=== PATIENT | female | born 1950 | race Two or more races ===

== ENCOUNTER 2023-11-10 10:11 | Outpatient (REF) | payer MEDICARE, MEDICAID, SELFPAY ==
--- NOTE | ~2023-11-10 | XR_ITS ---
EXAMINATION: XR KNEE, LEFT CLINICAL INFORMATION: worsening knee pain b/l COMPARISON: None available. TECHNIQUE: Four views of the left knee. FINDINGS: Normal bone mineralization. No fracture, dislocation, or suspicious bone lesion. Severe, end-stage tricompartmental arthritis of the left knee joint, most severe with [id number] appearance in the lateral compartment, with mild bony remodeling, subchondral sclerosis, cystic changes and prominent marginal osteophytes. Severe joint space loss medial compartment. Lesser severity noted in the patellofemoral compartment. There is mild valgus angulation of the joint. There is mild medial subluxation of the condyles upon the tibial plateau. There is spurring of the tibial spines. Soft tissues demonstrate a small suprapatellar joint effusion. There are early vascular calcifications. Soft tissues otherwise normal. XR/XR knee LT 4V IMPRESSION: 1. Left knee severe tricompartmental osteoarthritis, end-stage lateral compartment. [id number] appearance. 2. Suspect small joint effusion. Electronically signed by: Owen Del Toro MD 01/17/2024 02:35 PM [facility]
--- NOTE | ~2023-11-10 | XR_ITS ---
EXAMINATION: XR KNEE, RIGHT CLINICAL INFORMATION: worsening knee pain b/l COMPARISON: None available. TECHNIQUE: Four views of the right knee. FINDINGS: Normal bone mineralization. No fracture, dislocation, or suspicious bone lesion. Severe, end-stage tricompartmental arthritis of the right knee joint, most severe with [id number] appearance in the medial compartment, with mild bony remodeling, subchondral sclerosis, cystic changes and prominent marginal osteophytes. Severe bilateral lesser severity noted in the patellofemoral and lateral compartment. There is mild varus angulation of the joint. There is mild medial subluxation of the condyles upon the tibial plateau. There is spurring of the tibial spines. Soft tissues demonstrate a small to moderate sized suprapatellar joint effusion. Early vascular calcifications. Soft tissues otherwise normal. XR/XR knee RT 4V IMPRESSION: 1. Right knee severe tricompartmental osteoarthritis, end-stage medial compartment. Qksu-pd-[id number] appearance. 2. Suspect small to moderate joint effusion. Electronically signed by: Owen Del Toro MD 01/17/2024 02:32 PM [facility]
--- NOTE | ~2023-11-10 | XR_ITS ---
EXAMINATION: XR CERVICAL SPINE CLINICAL INFORMATION: chronic neck pain COMPARISON: None available. TECHNIQUE: 4 views of the cervical spine were obtained. FINDINGS: There is no scoliosis. There is a straightened lordosis. This is nonspecific. No fractures, traumatic subluxations, or suspicious focal bone lesions. There are no subluxations of significance. There is a minimal degenerative anterolisthesis of L2 on L3 by 2 mm. Alignment is otherwise anatomic. Severe disc space degeneration present C5-T1 with disc osteophytic spurring and loss of disc space. Associated facet degeneration is present. Moderate loss of disc space noted in C3-4 and C4-5. Relative preservation of C2-3. Atlantoaxial joint is intact and normally aligned. Craniocervical junction is aligned. There is no prior paravertebral soft tissue abnormality. Imaged lung apices are clear. XR/XR cervical spine 3V IMPRESSION: 1. Moderate to advanced cervical spondylosis, most significant at C5-6 and C6-7. 2. No acute cervical findings. Electronically signed by: Owen Del Toro MD 01/17/2024 02:39 PM [facility]
[2023-11-10 12:00] LABS: Hematocrit 39.2 % (37.0-47.0); Hemoglobin 12.7 g/dl (12.0-16.0); Mean Corpuscular HGB Conc 32.4 g/dl (31.0-35.0); Mean Corpuscular Hemoglobin 29.2 pg (27.0-33.0); Mean Corpuscular Volume 90.1 fL (80.0-98.0); Mean Platelet Volume 10.8 fL (9.4-12.3); Platelet Count 249 X10*3/uL (160-400); Red Blood Count 4.35 X10*6/uL (4.20-5.50); Red Cell Distribution Width 12.7 % (11.0-16.0); White Blood Count 7.7 X10*3/uL (4.8-10.8)
[2023-11-10 12:16] LABS: Estimated Average Glucose 200 mg/dL; Hemoglobin A1c % 8.6 % (<6.0)
[2023-11-10 12:36] LABS: Creatinine Urine 280.99 mg/dL; Microalbum/Creatinine Ratio Ur 9.2 ug/mg cr (<30)
[2023-11-10 12:38] LABS: Alanine Aminotransferase 16 U/L (0-31); Alkaline Phosphatase 66 U/L (39-117); Anion Gap 13 (12-20); Aspartate Amino Transferase 17 U/L (5-31); Bilirubin Direct < 0.2 mg/dL (0.0-0.5); Bilirubin Total 0.2 mg/dL (0.0-1.0); Blood Urea Nitrogen 19 mg/dL (9-16); Calcium 9.8 mg/dL (8.4-10.2); Carbon Dioxide 28 mmol/L (22-29); Chloride 104 mmol/L (96-108); Cholesterol 218 mg/dL (<200); Estimated Glomerular Filt Rate 49; Glucose Random 151 mg/dL (60-115); HDL Cholesterol 42 mg/dL (>40); Hepatitis A Antibody IgG REACTIVE (Nonreactive); LDL Cholesterol Calculated 125 mg/dL (<100); Potassium 5.2 mmol/L (3.3-5.1); Sodium 140 mmol/L (135-145); Total Protein 7.6 g/dL (6.5-8.0); Triglycerides 256 mg/dL (<150); ~Hepatitis A Antibody IgG 11.49 S/CO (0.00-0.99)
[2023-11-10 12:39] LABS: HBS Num1 0.33 mIU/mL (0-7.99); HBc Num1 0.15 S/CO (0.00-0.79); HBsAGNum1 0.31 S/CO (0.00-0.99); HIV AB/AG Nonreactive (Nonreactive); HIV Num 1 0.07 S/CO (0.00-0.99); Hepatitis B Core Antibody Nonreactive (Nonreactive); Hepatitis B Surface Antigen Negative (Negative); ~HepC Num1 0.11 S/CO (0.00-0.79); ~Hepatitis B Surface Antibody NONREACTIVE (Nonreactive); ~Hepatitis C Antibody Nonreactive (Nonreactive)
[2023-11-10 12:42] LABS: Thyroid Stimulating Hormone 2.42 uIU/mL (0.32-4.0); Vitamin D 25-OH Total 23.1 ng/mL (>30)
[2023-11-11 12:49] LABS: RPR Rapid Plasma Reagin NON-REACTIVE (NON-REACTIVE)
== END 2023-11-10 10:12 | disposition home or self-care (01) ==
LOC: HO.HHCL 10:11
PROVIDERS: PCP Family Medicine; Visit Provider Family Medicine
DX: Z00.00 Encounter for general adult medical examination without abnormal findings (principal); M54.2 Cervicalgia; M25.561 Pain in right knee; M25.562 Pain in left knee; E11.319 Type 2 diabetes mellitus with unspecified diabetic retinopathy without macular edema; I10 Essential (primary) hypertension; E78.49 Other hyperlipidemia; Z68.35 Body mass index [BMI] 35.0-35.9, adult; N18.2 Chronic kidney disease, stage 2 (mild); Z11.3 Encounter for screening for infections with a predominantly sexual mode of transmission; Z11.59 Encounter for screening for other viral diseases; G89.29 Other chronic pain; Z72.89 Other problems related to lifestyle
CPT/HCPCS: 36415; 72040; 73564; 80048; 80061; 80076; 82043; 82306; 82570; 83036; 84439; 84443; 85027; 86592; 86704; 86706; 86708; 86803; 87340; 87389

== ENCOUNTER → 2023-11-10 10:52 | Outpatient (BNV) | payer MEDICARE, MEDICAID, SELFPAY | PROVIDERS: PCP Family Medicine; Visit Provider Radiology Diagnostic Radiology | DX: M17.0 Bilateral primary osteoarthritis of knee (principal); M47.892 Other spondylosis, cervical region | CPT/HCPCS: 72040; 73564 ==

== ENCOUNTER 2023-11-17 11:02 | Outpatient (REF) | payer MEDICARE, MEDICAID, SELFPAY ==
[2023-11-17 13:27] LABS: Anion Gap 13 (12-20); Blood Urea Nitrogen 16 mg/dL (9-16); Calcium 9.7 mg/dL (8.4-10.2); Carbon Dioxide 30 mmol/L (22-29); Chloride 100 mmol/L (96-108); Estimated Glomerular Filt Rate 59; Glucose Random 160 mg/dL (60-115); Potassium 4.4 mmol/L (3.3-5.1); Sodium 139 mmol/L (135-145)
[2023-11-17 13:48] LABS: Vitamin B12 748 pg/mL (200-900)
[2023-11-17 15:21] LABS: CT PCR NOT DETECTED (Not Detect.); NG PCR NOT DETECTED (Not Detect.)
== END 2023-11-17 11:03 | disposition home or self-care (01) ==
LOC: HO.HHCL 11:02
PROVIDERS: Visit Provider Family Medicine
DX: Z00.00 Encounter for general adult medical examination without abnormal findings (principal); E11.319 Type 2 diabetes mellitus with unspecified diabetic retinopathy without macular edema; I12.9 Hypertensive chronic kidney disease with stage 1 through stage 4 chronic kidney disease, or unspecified chronic kidney disease; N18.2 Chronic kidney disease, stage 2 (mild); E78.49 Other hyperlipidemia; Z68.35 Body mass index [BMI] 35.0-35.9, adult; Z11.3 Encounter for screening for infections with a predominantly sexual mode of transmission
CPT/HCPCS: 36415; 80048; 82607; 87491; 87591

== ENCOUNTER 2024-05-21 10:22 | Outpatient (REF) | payer MEDICARE, MEDICAID, SELFPAY ==
--- OUTSIDE RECORDS SUMMARY | 2024-05-21 12:09 | XMS_ITS | Encounter Summary ---
Author Organization [employer] Address [address] [facility] [address] [place] [address] Care Team Providers Care Rake Operator Name Role Phone AlonJenifer Primary Care Provider Sherrill Franklin PharmD Unavailable [phone] Encounter Details Date Type Department Care Team (Latest Contact Info) Description 05/21/2024 Travel Social History Tobacco Use Types Packs/Day Years Used Date Smoking Tobacco: Never Smokeless Tobacco: Never Alcohol Use Standard Drinks/Week Comments Never 0 (1 standard drink = 0.6 oz pur e alcohol) Depression Answer Date Recorded Patient Health Questionnaire-9 Score 3 11/10/2023 Patient Health Questionnaire-9 Score 3 11/10/2023 Last PHQ-9: Questionnaire Data Not on file 0 11/10/2023 Housing Stability Answer Date Recorded What is your housing situation today? I have soledad geronimo 11/02/[address] you li ve. Do you have problems with any of the following? None of the above 11/02/2023 Food Insecurity Answer Date Recorded Within the past 12 months, y ou worried that your food would run out before you got money to buy more: Never True 11/02/2023 Within the past 12 months,th e food you bought just didn't last and you didn't have enough money to get more: Never True Transportation Answer Date Recorded In the past 12 months, has l ack of transportation kept you from medical appts, meetings, work or from getting things needed for daily living? No 11/02/2023 Utilities Answer Date Recorded In the past 12 months, has t he electric, gas, oil or water company threatened to shut off services in your home? No 11/02/2023 Depression Answer Date Recorded Patient Health Questionnaire-2 Score 1 11/10/2023 Internet Access Answer Date Recorded Internet Access Q1 Yes 11/02/2023 Internet Access Q2 Not on file 11/02/2023 Comments Unknown Sex and Gender Information Value Date Recorded Sex Assigned at Female 09/14/2023 9:46 AM EDT Legal Sex Female 9:44 AM EDT Gender Identity Female 09/14/2023 9:46 AM EDT Sexual Orientation Straight 09/14/2023 9: 47 AM EDT documented as of this encounter Plan of Treatment Upcoming Encounters Date Type Department Care Team (Late st Contact Info) Description 06/08/2024 11:15 AM EDT Office Visit [facility] MEDICINE [address] [place] [phone] Jenifer Chi DO [address] [place] [phone] 07/03/2024 9:00 AM EDT Medication Management [facility] MEDICINE [address] [place] [phone] Sherrill Franklin, PharmD [address] [place] [phone] documented as of this encounter Visit Diagnoses Not on filedocumented in this encounter Additional Health Concerns Assessment Noted Time PHQ-9 Depression Total Score: 3 11/10/19 9:00 AM EDT documented as of this encounter Care Teams Rake Operator Relationship Specialty Start Date End Date Jenifer Chi DO [address] [place] [phone] PCP - General Family Medicine 11/10/23 Sherrill Franklin, PharmD [address] [place] [phone] Pharmacist Internal Medicine 11/17/23 documented as of this encounter
--- OUTSIDE RECORDS SUMMARY | 2024-05-21 12:10 | XMS_ITS | Clinical Summary ---
Author Organization [employer] Address [address] [facility] 7t [place] [address] Care Team Providers Care Tourist Cabin Keeper Name Role Phone AlonJenifer Primary Care Provider Sherrill Franklin PharmD Unavailable [phone] Allergies No known active allergies Medications Alcohol Swabs 70 % pads Use to test blood sugar 2 times daily 100 each 11/10/19 Active Blood Glucose Monitoring Suppl ([employer] Lite) w/Device kit Use to test blood sugar 2 times daily 1 kit 11/10/19 Active Blood Pressure kit 1 each 1 (one) time per week. 1 kit 11/10/19 24 Active acetaminophen (Tylenol 8 Hour) 650 MG ER tablet Take 1 tablet (650 mg) by mouth every 8 (eight) hours if needed for mild pain. Do not crush, chew, or split. 60 tablet 2 11/10/19 025 Active aspirin (Aspirin Adult Low Dose) 81 MG EC tablet Take 1 tablet (81 mg) by mouth Once per day. 30 tablet 11/10/19 24 025 Active cholestyramine (Questran) 4 g packet Take 1 packet (4 g) by mouth if needed in the morning, at noon, and at bedtime (diarrhea). 90 packet 11/10/19 025 Active losartan (Cozaar) 100 MG tablet Take 1 tablet (100 mg) by mouth Once per day. 30 tablet 11/10/19 24 025 Active meclizine (Antivert) 25 MG tablet Take 1 tablet (25 mg) by mouth if needed in the morning, at noon, and at bedtime for dizziness. 30 tablet 2 11/10/19 24 Active metoprolol succinate XL (Toprol XL) 50 MG 24 hr tablet Take 1 tablet (50 mg) by mouth Once per day. Do not crush or chew. 30 tablet 11 11/10/19 24 Active polycarbophil (FiberCon) 625 MG tablet Take 1 tablet (625 mg) by mouth 2 times daily. 60 tablet 11 11/10/19 24 Active GAS RELIEF 125 MG capsule TAKE 1 CAPSULE BY MOUTH 4 TIMES A DAY IN THE MORNING, AT NOON, IN THE EVENING, AND AT BEDTIME NEEDED FOR GAS 11/10/19 Active atorvastatin (Lipitor) 80 MG tablet Take 1 tablet (80 mg) by mouth Once per day. 30 tablet 11 11/17/19 24 Active amLODIPine (Norvasc) 10 MG tablet Take 1 tablet (10 mg) by mouth Once per day. 30 tablet 11 11/17/19 24 Active TRUEplus Lancets 33G misc TEST BLOOD SUGAR EVERY DAY 100 each 01/04/20 Active glucose blood (FREESTYLE LITE) test strip Use to test blood sugar once daily 50 each 01/04/20 24 Active Tirzepatide (Mounjaro) 5 MG/0.5ML solution auto-injectorIn dications:Type 2 diabetes mellitus with retinopathy of both eyes, without long-term current use of insulin, macular edema presence unspecified, unspecified retinopathy severity (CMS/HCC) Inject 5 mg under the skin 1 (one) time per week. 2 mL 02/14/20 Active DULoxetine (Cymbalta) [address] capsule TAKE 1 CAPSULE BY MOUTH EVERY MORNING (DO NOT BREAK, CRUSH, DISSOLVE OR CHEW) 30 capsule 3 03/08/19 25 Active gabapentin (Neurontin) 400 MG capsule TAKE 1 CAPSULE BY MOUTH EVERY EVENING 30 capsule 03/08/19 25 Active Florastor 250 MG capsule Take 1 capsule by mouth Once per day. 02/14/20 Active polyvinyl alcohol (Liquifilm Tears) 1.4 % ophthalmic solution INSTILL 1 DROP IN EACH EYE THREE TIMES DAILY IN THE MORNING, AT NOON, AND AT BEDTIME NEEDED DRY EYES 03/13/19 25 Active empagliflozin (Jardiance) 25 MGIndications:T ype 2 diabetes mellitus with retinopathy of both eyes, without long-term current use of insulin, macular edema presence unspecified, unspecified retinopathy severity (CMS/HCC) Take 1 tablet (25 mg) by mouth Once per day. 90 tablet 3 05/22/19 25 026 Active metFORMIN XR (Glucophage-XR) 750 MG 24 hr tabletIndicatio ns:Type 2 diabetes mellitus with retinopathy of both eyes, without long-term current use of insulin, macular edema presence unspecified, unspecified retinopathy severity (CMS/HCC) Take 2 tablets (1,500 mg) by mouth with breakfast. Do not crush, chew, or split. 180 tablet 1 05/22/19 25 Active empagliflozin-m etFORMIN ER (Synjardy XR) 25-1000 MG 24 hr tablet Take 1 tablet by mouth with breakfast. 30 tablet 11 02/14/20 24 025 Discontinued(A lternate therapy) docusate sodium (Colace) 100 MG capsuleIndicati ons:Constipatio n, unspecified constipation type Take 1 capsule (100 mg) by mouth Once per day. 90 capsule 02/16/19 25 025 polyethylene glycol, PEG, 3350 (MiraLax) 17 GM/SCOOP powderIndicatio ns:Constipation , unspecified constipation type Take 17 g by mouth Once per day. 527 g 2 02/16/19 25 025 dextran 70-hypromellose (artificial tears) 0.1-0.3 % ophthalmic solutionIndicat ions:Dry eyes, bilateral Administer 1 drop into both eyes if needed in the morning, at noon, and at bedtime for dry eyes. 15 mL 6 03/13/19 25 025 Discontinued(M ed list cleanup (will not trigger notification to Pharmacy)) Active Problems Problem Noted Date Diagnosed Date Type 2 diabetes mellitus 11/10/2023 Essential hypertension 11/10/2023 Hyperlipidemia 11/10/2023 BMI 35.0-35.9,adult 11/10/2023 Irritable bowel syndrome 11/10/2023 Chronic neck pain 11/10/2023 Chronic pain of both knees 11/10/2023 Chronic kidney disease (CKD) 11/10/2023 Atherosclerosis 11/10/2023 Osteoarthritis of both knees 11/10/2023 Hypertensive heart disease 11/10/2023 Cervical stenosis of spine 11/10/2023 Carotid artery disease 11/10/2023 Diabetes, polyneuropathy 11/10/2023 Diabetic retinopathy 11/10/2023 Uterine polyp 11/10/2023 Diverticulosis 11/10/2023 Encounters Date Type Department Care Team Description 05/21/2024 Travel 05/21/2024 Refill [facility] MEDICINE [address] [place] [address] Beba Palomares MD Constipation, unspecified constipation type 04/25/2024 Outside Procedure [facility] OPTOMETRY [address] [place] [address] Kay Montoya, OD Presbyopia (Primary Dx) 04/20/2024 9:00 AM EST Office Visit [facility] OPTOMETRY [address] [place] [address] Kay Montoya, OD Myopia of both eyes (Primary Dx) 04/20/2024 Travel 04/03/2024 Telephone [facility] MEDICINE [address] [place] [address] Sherrill Franklin PharmD 03/20/2024 Telephone [facility] MEDICINE [address] [place] [address] Jenifer Chi DO Telephone Call 03/13/2024 9:00 AM EST Office Visit [facility] OPTOMETRY [address] [place] [address] Lakesha Weston, OD Proliferative diabetic retinopathy of both eyes without macular edema associated with type 2 diabetes mellitus (CMS/HCC) (Primary Dx); Presbyopia; Dry eyes, bilateral 03/13/2024 Travel 03/08/2024 Refill [facility] MEDICINE [address] [place] [address] Jenifer Chi DO from Last 3 Months Immunizations Name Administration Dates Next Due Hep B, adult 05/21/2024,12/15/2023,11/17/2023 Influenza, High Dose Seasona l, Preservative Free 11/10/2023 Pfizer Covid-19 Vaccine 12+ 11/10/2023 Pneumococcal Conjugate PCV 20 11/10/2023 RSV Bivalent 12/15/2023 Zoster, Recombinant 05/21/2024 Family History Medical History Relation Name Comments Leukemia Granddaughter Diabetes Maternal Grandmother Diabetes Mother Hodgkin's lymphoma Son Relation Name Status Comments Father Granddaughter Other Maternal Grandmother Mother Son Social History Tobacco Use Types Packs/Day Years Used Date Smoking Tobacco: Never Smokeless Tobacco: Never Tobacco Cessation:Counseling Given: Not Answered Alcohol Use Standard Drinks/Week Comments Never 0 [...] Orientation Straight 09/14/2023 9: 47 AM EDT Last Filed Vital Signs Vital Sign Reading Time Taken Comments Blood Pressure 110/72 05/21/2024 10:05 AM EDT Pulse 67 11/10/2023 8:58 AM EDT Temperature 36.1 ??C (97 ??F) 11/10/2023 8:58 AM EDT Respiratory Rate 16 11/10/2023 8:58 AM EDT Oxygen Saturation 98% 11/10/2023 8:58 AM EDT Inhaled Oxygen Concentration - - Weight 92.5 kg (204 lb) 11/10/2023 8:58 AM EDT Height 162.6 cm (5' 4 ) 11/10/2023 8:58 AM EDT Body Mass Index 35.02 11/10/2023 8:58 AM EDT Plan of Treatment Upcoming Encounters Date Type Department Care Team (Late st Contact Info) Description 06/08/2024 11:15 AM EDT Office Visit [facility] MEDICINE [address] [place] [phone] Jenifer Chi DO [address] [place] [address] 07/03/2024 9:00 AM EDT Medication Management [facility] MEDICINE [address] [place] [phone] Sherrill Franklin, PharmD [address] [place] [address] Health Maintenance Due Date Last Done Comments CT Colonography 1951 Colonoscopy 1951 Colorectal Cancer Screening 1951 FIT DNA/Cologuard 1951 FIT 1951 FOBT 1951 Sigmoidoscopy 1951 Diabetes: Foot Exam 05/30/1961 Alcohol/Substance Use Screening 1963 DTaP/Tdap/Td Vaccines (1 - Tdap) 05/30/1970 Mammogram 1991 Diabetes: Hemoglobin A1C 05/14/2024 024, 11/10/2023, 11/10/2023 Zoster Vaccines (2 of 2) 07/16/2024 05/21/2024 SDOH Screening 11/01/2024 11/02/2023 Depression Screening 11/09/2024 11/10/2023, 11/10/19 Diabetes: Urine Protein Screening 11/09/2024 11/10/2023 Lipid Panel 11/09/2024 11/10/2023 Tobacco Screening 12/11/2024 12/12/2023 Eye Exam 03/13/2025 03/13/2024, 02/15, 03/13/2024, Additional history exists COVID-19 Vaccine Completed 11/10/2023 Hepatitis C Screening Completed 11/10/2023 Influenza Vaccine Completed 11/10/2023 Pneumococcal Vaccine: 50+ Years Completed 11/10/2023 RSV Patients and Patients Aged 60 years or older Completed 12/15/2023 Hepatitis B Vaccines Completed 05/21/2024, 12/15/2023, 11/17/2023 HIB Vaccines Aged Out No longer eligi ble based on patient's age to complete this topic HPV Vaccines Aged Out No longer eligi ble based on patient's age to complete this topic Hepatitis A Vaccines Aged Out No long er eligible based on patient's age to complete this topic IPV Vaccines Aged Out No longer eligi ble based on patient's age to complete this topic Meningococcal Vaccine Aged Out No madan albertina eligible based on patient's age to complete this topic RSV under 20 months Aged Out No longe r eligible based on patient's age to complete this topic Rotavirus Vaccines Aged Out No longer eligible based on patient's age to complete this topic Procedures Procedure Name Priority Date/Time Associated Diagnosis Comments AMB REFERRAL TO ORTHOPAEDIC SURGERY Urgent 03/17/2024 Chronic pain of both knees OCT, RETINA - OU - BOTH EYES Routine 03/13/2024 9:00 AM EST Proliferative diabetic retinopathy of both eyes without macular edema associated with type 2 diabetes mellitus (CMS/HCC) POCT GLYCATED HEMOGLOBIN, TOTAL Routine 02/14/2024 11:05 AM EST Type 2 diabetes mellitus with retinopathy of both eyes, without long-term current use of insulin, macular edema presence unspecified, unspecified retinopathy severity (CMS/HCC) ALBUMIN, RANDOM URINE W/CREATININE Routine 11/10/2023 10:25 AM EDT Type 2 diabetes mellitus with retinopathy of both eyes, without long-term current use of insulin, macular edema presence unspecified, unspecified retinopathy severity (CMS/HCC) Essential hypertension Other hyperlipidemia BMI 35.0-35.9,adult Healthcare maintenance HEPATITIS C AB W/REFL TO HCV RNA, QN, PCR Routine 11/10/2023 10:21 AM EDT Type 2 diabetes mellitus with retinopathy of both eyes, without long-term current use of insulin, macular edema presence unspecified, unspecified retinopathy severity (CMS/HCC) Essential hypertension Other hyperlipidemia BMI 35.0-35.9,adult Healthcare maintenance LIPID PANEL, STANDARD Routine 11/10/2023 10:21 AM EDT Type 2 diabetes mellitus with retinopathy of both eyes, without long-term current use of insulin, macular edema presence unspecified, unspecified retinopathy severity (CMS/HCC) Essential hypertension Other hyperlipidemia BMI 35.0-35.9,adult Healthcare maintenance from Last 3 Months or Most Recently Relevant to Health Maintenance Results * Referral to Orthopaedic Surgery (03/17/2024) Jenifer Chi DO OUTPATIENT REFERRAL ORDERABL ES Final Result * OCT, Retina - OU - Both Eyes (03/13/2024 9:00 AM EST) Narrative Lakesha Weston, OD - 03/19/2024 9:59 AM EST OCT [facility] [employer] Optical Coherence Tomography Interpretation Report Reliability: OD: 36, adequate quality image OS: 40, adequate quality image Measurements: Central subfoveal thickness OD: ??232 microns OS: ??192 microns Test findings: OD: thick sup/nasal/inf perifovea, (+) epiretinal membrane (ERM), all layers intact, no macular edema present OS: borderline thin fovea, borderline thin superior parafovea, thin inferior parafovea, tr epiretinal membrane (ERM), some subfoveal PIL disruption, no macular edema present Impression and Plan: PDR w/o DME both eyes (OU). Stable to last. Monitor. us Lakesha Weston OD OPHTH TOMOGRAPHY Final Result * (ABNORMAL) POCT HGB A1C (02/14/2024 11:05 AM EST) Hemoglobin A1C 9.2(A) 4.0 - 6.0 % QC Media Lot # [id number] Blood 02/14/2024 11:0 5 AM EST Jenifer Chi DO POINT OF CARE TEST ENTER/WOOD T ORDERABLES Final Result * Albumin, Random Urine W/Creatinine (11/10/2023 10:25 AM EDT) Creatinine, Urine 280.99 mg/dL [facility] Microalbumin Urine 26.0 mg/L [facility] Microalbum Creatinine Ratio Ur 9.2 <30 ug/mg cr [facility] Comment:Albumin/Creatinine R atio Reference Ranges: Normal: < 30 ug/mg creatinine Microalbuminuria: 30 - 300 ug/mg creatinineClinical Albuminuria: > 300 ug/mg creatinine Urine (Urine, Random) 11/10/2023 10:25 AM EDT 11/10/2023 11:42 AM EDT Jenifer Chi DO LAB URINE ORDERABLES Final R esult Performing Organization Address [facility] Co de Phone Number [facility] [address] [place] [phone] * Hepatitis C Antibody with Reflex to HCV, RNA, Quantitative, Real-Time PCR (11/10/2023 10:21 AM EDT) Pathologist [facility] [place] Hepatitis C Antibody Nonreactive Nonreactive [facility] Comment:Antibodies to HCV no t detected; does not exclude early acuteHCV infection. Blood Venous blood specimen / Unknown 11/10/2023 10:21 AM EDT 11/10/2023 11:51 AM EDT Jenifer Chi Plan A Drink LAB BLOOD ORDERABLES Final R esult Performing Organization Address [facility]/ZIP Co de Phone Number [facility] [address] [place] [phone] * (ABNORMAL) Lipid Panel, Standard (11/10/2023 10:21 AM EDT) Triglycerides 256(H) <150 mg/dL [facility] Comment:Desirable Triglyceri de: less than 150 mg/dLBorderline High Triglyceride 150-199 mg/dLHigh Triglyceride: 200-499 mg/dLVery High Triglyceride: greater than or equal to 5OO mg/dL Cholesterol 218(H) <200 mg/dL [facility] Comment:Desirable Cholestero l: less than 200 mg/dLBorderline High Cholesterol: 200-239 mg/dLHigh Cholesterol: greater than 239 mg/dL LDL Cholesterol Calculated 125(H) <100 mg/dL [facility] Comment:Desirable LDL: less than 100 mg/dLNear Optimal/Above Optimal LDL: 110- 129 mg/dLBorderline High LDL: 130-159 mg/dLHigh LDL: 160-189 mg/dLVery High LDL: greater than or equal to 190 mg/dL HDL Cholesterol 42 >40 mg/dL [facility] Comment:Desirable HDL: great er than 40 mg/dL Note: This HDL assay may give artificially low results in patients with liver disease. Blood Venous blood specimen / Unknown 11/10/2023 10:21 AM EDT 11/10/2023 11:51 AM EDT us Jenifer Chi DO LAB BLOOD ORDERABLES Final R esult [facility] [address] [place] [phone] from Last 3 Months or Most Recently Relevant to Health Maintenance Insurance MEDICARE [facility] STANDARD Care Teams Tourist Cabin Keeper Relationship Specialty Start Date End Date Jenifer Chi DO [address] [place] [address] PCP - General Family Medicine 11/10/23 Sherrill Franklin PharmD [address] [place] [address] Pharmacist Internal Medicine 11/17/23
--- OUTSIDE RECORDS SUMMARY | 2024-05-21 12:10 | XMS_ITS | Encounter Summary ---
Author Organization [id number] Address [address] [facility] [address] [place] [address] Care Team Providers Care Fiscal Services Manager Name Role Phone AlonJenifer Primary Care Provider Sherrill Franklin PharmD Unavailable Encounter Details Date Type Department Care Team ([facility] st Contact Info) Description 02/17/2024 Orders Only [facility] MEDICINE [address] [place], [place] [phone] Beba Palomares MD [address] [place], [place] [phone] Constipation, unspecified constipation type (Primary Dx) Social History Tobacco Use Types Packs/Day Years [...] Description 06/08/2024 11:15 AM EDT Office Visit [facility] MEDICINE [address] [place] [phone] Jenifer Chi DO [address] [place] [phone] 07/03/2024 9:00 AM EDT Medication Management [address] [address] Sherrill Franklin, PharmD [address] [place] [phone] documented as of this encounter Visit Diagnoses Diagnosis Constipation, unspecified constipation type- Primary documented in this encounter Additional Health Concerns Assessment Noted Time PHQ-9 Depression Total Score: 3 11/10/19 9:00 AM EDT documented as of this encounter Care Teams Fiscal Services Manager Relationship Specialty Start Date End Date Jenifer Chi DO [address] [place] [phone] PCP - General Family Medicine 11/10/23 Sherrill Franklin, PharmD [address] [place] [phone] Pharmacist Internal Medicine 11/17/23 documented as of this encounter
--- OUTSIDE RECORDS SUMMARY | 2024-05-21 12:10 | XMS_ITS | Encounter Summary ---
Author Organization [facility] Address [address] [facility] 7t [place] [address] Care Team Providers Care Lamp Tester And Inspector Name Role Phone AlonJenifer Primary Care Provider [phone] Sherrill Franklin PharmD Unavailable [phone] Reason for Visit * Reason Comments Med Refill Encounter Details Date Type Department Care Team (Late st Contact Info) Description 05/21/2024 Refill [facility] MEDICINE [address] [place], [place] [phone] Beba Palomares MD [address] [place] [address] Constipation, unspecified constipation type Social History Tobacco Use Types Packs/Day Years [...] is your housing situation today? I have soledadcarmel geronimo 11/02/[address] you [...] 11:15 AM EDT Office Visit [facility] MEDICINE [address] [place] [phone] Jenifer Chi DO [address] [place] [address] 07/03/2024 9:00 AM EDT Medication Management [address] [address] Sherrill Franklin, PharmD [address] [place] [phone] documented as of this encounter Visit Diagnoses Diagnosis Constipation, unspecified constipation type documented in this encounter Additional Health Concerns Assessment Noted Time PHQ-9 Depression Total Score: 3 11/10/19 9:00 AM EDT documented as of this encounter Care Teams Lamp Tester And Inspector Relationship Specialty Start Date End Date Jenifer Chi DO [address] [place] [phone] PCP - General Family Medicine 11/10/23 Sherrill Franklin, PharmD [address] [place] [address], [place] [address] Pharmacist Internal Medicine 11/17/23 documented as of this encounter
[2024-05-21 13:19] LABS: Alanine Aminotransferase 17 U/L (0-31); Alkaline Phosphatase 86 U/L (39-117); Aspartate Amino Transferase 33 U/L (5-31); Bilirubin Direct 0.1 mg/dL (0.0-0.5); Bilirubin Total 0.3 mg/dL (0.0-1.0); Cholesterol 161 mg/dL (<200); HDL Cholesterol 39 mg/dL (>40); LDL Cholesterol Calculated 90 mg/dL (<100); Total Protein 7.7 g/dL (6.5-8.0); Triglycerides 161 mg/dL (<150)
== END 2024-05-21 10:23 | disposition home or self-care (01) ==
LOC: HO.HHCL 10:22
PROVIDERS: Visit Provider Family Medicine
DX: E78.49 Other hyperlipidemia (principal); E11.319 Type 2 diabetes mellitus with unspecified diabetic retinopathy without macular edema
CPT/HCPCS: 36415; 80061; 80076

== ENCOUNTER 2024-06-08 12:48 | Outpatient (REF) | payer MEDICARE, MEDICAID, SELFPAY ==
--- NOTE | ~2024-06-08 | XR_ITS ---
EXAMINATION: XR TOES, RIGHT CLINICAL INFORMATION: R great toe redness and swelling COMPARISON: None available. TECHNIQUE: Three views of the right hallux. FINDINGS: Soft tissue swelling of the hallux. Mild soft tissue irregularity in the nailbed. No underlying erosive or permeative bony change. No focal osteopenia noted. No soft tissue gas noted. Mild to moderate degenerative changes throughout the MTP joints. XR/XR toe RT min 2V IMPRESSION: 1. Soft tissue swelling of the hallux without radiographic evidence of osteomyelitis. 2. Arthritic changes as discussed. Electronically signed by: Owen Del Toro MD 06/11/2024 08:05 AM EDT
--- NOTE | ~2024-06-08 | XR_ITS ---
EXAMINATION: XR FOOT, RIGHT CLINICAL INFORMATION: R great toe swelling and redness with nail discharge COMPARISON: None available. TECHNIQUE: AP, lateral, and oblique views of the right foot. FINDINGS: Soft tissue swelling of the hallux. No underlying erosive or permeative bony change. No focal osteopenia noted. No soft tissue gas noted. The remainder of the foot is normally aligned. No fracture, dislocation, or suspicious bone lesion. Normal plantar arch. Mild to moderate degenerative changes throughout the MTP joints. Mild to moderate degenerative changes in the intertarsal joints and tarsometatarsal joints. There are large plantar and dorsal calcaneal spurs. No additional soft tissue abnormality. XR/XR foot RT min 3V IMPRESSION: 1. Soft tissue swelling of the hallux without radiographic evidence of osteomyelitis. 2. Arthritic changes as discussed. Electronically signed by: Owen Del Toro MD 06/11/2024 08:04 AM EDT
--- OUTSIDE RECORDS SUMMARY | 2024-06-08 13:28 | XMS_ITS | Encounter Summary ---
Author Organization [employer] Address [address] [facility] 7t [place] [address] Care Team Providers Care Chief Operator Hydroformer Name Role Phone AlonJenifer Primary Care Provider Sherrill Franklin PharmD Unavailable [phone] Encounter Details Date Type Department Care Team ([facility] st Contact Info) Description 02/17/2024 Orders Only [facility] MEDICINE [address] [place], [place] [phone] Beba Palomares MD [address] [place], [place] [phone] Constipation, unspecified constipation type (Primary Dx) Social [...] Care Team (Late st Contact Info) Description 07/03/2024 9:00 AM EDT Medication Management [facility] MEDICINE [address] [place] [address] Sherrill Franklin, PharmD [address] [place] [address] 09/10/2024 9:00 AM EDT Office Visit [facility] OPTOMETRY [address] [place] [address] Tarka, Lakesha, OD [address] [place] [address] documented as of this encounter Visit Diagnoses Diagnosis Constipation, unspecified constipation type- Primary documented in this encounter Additional Health Concerns Assessment Noted Time PHQ-9 Depression Total Score: 3 11/10/19 24 9:00 AM EDT documented as of this encounter Care Teams Chief Operator Hydroformer Relationship Specialty Start Date End Date Jenifer Chi DO [address] [place] [phone] PCP - General Family Medicine 11/10/23 Sherrill Franklin, PharmD [address] [place] [phone] Pharmacist Internal Medicine 11/17/23 documented as of this encounter
--- OUTSIDE RECORDS SUMMARY | 2024-06-08 13:28 | XMS_ITS | Encounter Summary ---
Author Organization [employer] Address [address] [place] [address] 7t [place] [address] Care Team Providers Care Agricultural Education Teacher Name Role Phone Jenifer Chi DO Primary Care Provider Sherrill Franklin PharmD Unavailable [phone] Reason for Referral * Consultation (Routine) - Pending Review Specialty Diagnoses / Procedures Referred By Basilio t Referred To Contact Pain Medicine Diagnoses Chronic neck pain Jenifer Chi DO [address] [place], [place] Phone: tel: fax: Referral ID Status Reason Start Date Expiration Date Visits Requested Visits Authorized [id number] Pending Review Specialty Services Required 06/08/2024 06/08/2025 1 1 * Imaging (Routine) - Pending Review Specialty Diagnoses / Procedures Referred By Basilio t Referred To Contact Radiology Diagnoses Dizziness Procedures CT Head w/o Contrast Jenifer Chi DO [address] [place], [place] Phone: tel: fax: Referral ID Status Reason Start Date Expiration Date V isits Requested Visits Authorized [id number] Pending Review 06/08/2024 06/08/2025 1 1 * Imaging (Routine) - Pending Review Specialty Diagnoses / Procedures Referred By Contray t Referred To Contact Cardiology Diagnoses Dizziness Procedures Vascular US carotid artery duplex bilateral Jenifer Chi DO [address] [place] [address] Phone: tel: fax: Referral ID Status Reason Start Date Expiration Date Visits Requested Visits Authorized [id number] Pending Review Perform Procedure 06/08/2024 06/08/2025 1 1 * Cardiology (Routine) - Pending Review Specialty Diagnoses / Procedures Referred By Contac t Referred To Contact Cardiology Diagnoses Palpitations Procedures Holter monitor - 24 hour Jenifer Chi DO [address] [place] [address] Phone: tel: fax: Referral ID Status Reason Start Date Expiration Date V isits Requested Visits Authorized [id number] Pending Review 06/08/2024 06/08/2025 1 1 * Imaging (Routine) - Pending Review Specialty Diagnoses / Procedures Referred By Contac t Referred To Contact Cardiology Diagnoses Dizziness Palpitations Procedures Transthoracic Echo (TTE) Complete Jenifer Chi DO [address] [place], [place] Phone: tel: fax: Referral ID Status Reason Start Date Expiration Date Visits Requested Visits Authorized [id number] Pending Review Perform Procedure 06/08/2024 06/08/2025 1 1 * Consultation (Routine) - Pending Review Specialty Diagnoses / Procedures Referred By Contac t Referred To Contact Cardiology Diagnoses Palpitations Jenifer Chi DO [address] [place], [place] Phone: tel: fax: Referral ID Status Reason Start Date Expiration Date Visits Requested Visits Authorized [id number] Pending Review Specialty Services Required 06/08/2024 06/08/2025 1 1 * Consultation (STAT) - Pending Review Specialty Diagnoses / Procedures Referred By Basilio barreto Referred To Contact Podiatry Diagnoses Toe swelling Jenifer Chi DO [address] [place] [address] Phone: tel: fax: Referral ID Status Reason Start Date Expiration Date Visits Requested Visits Authorized [id number] Pending Review Specialty Services Required 06/08/2024 06/08/2025 1 1 Encounter Details Date Type Department Care Team (Late st Contact Info) Description 06/08/2024 11:15 AM EDT Office Visit [facility] MEDICINE [address] [place] [phone] Jenifer Chi DO [address] [place] [address] Type 2 diabetes mellitus with retinopathy of both eyes, without long-term current use of insulin, macular edema presence unspecified, unspecified retinopathy severity (CMS/HCC) (Primary Dx); Essential hypertension; Other hyperlipidemia; Chronic kidney disease, stage 2 (mild); Chronic neck pain; Chronic pain of both knees; Toe swelling; Dizziness; Palpitations; Healthcare maintenance Social History Tobacco Use Types Packs/Day Years [...] Access Q2 Not on file 11/02/2023 Comments No Sex and Gender Information Value Date Recorded Sex Assigned at Female 09/14/2023 9:46 AM EDT Legal Sex Female 9:44 AM EDT Gender Identity Female 09/14/2023 9:46 AM EDT Sexual Orientation Straight 09/14/2023 9: 47 AM EDT documented as of this encounter Last Filed Vital Signs Vital Sign Reading Time Taken Comments Blood Pressure 128/70 06/08/2024 11:28 AM EDT Pulse 88 06/08/2024 11:28 AM EDT Temperature 36.8 ??C (98.3 ??F) 06/08/2024 11:28 AM E DT Respiratory Rate 21 06/08/2024 11:28 AM EDT Oxygen Saturation 98% 06/08/2024 11:28 AM EDT Inhaled Oxygen Concentration - - Weight 79 kg (174 lb 2 oz) 06/08/2024 11:28 AM E DT Height 175.3 cm (5' 9 ) 06/08/2024 11:28 AM EDT Body Mass Index 25.71 06/08/2024 11:28 AM EDT documented in this encounter Plan of Treatment Upcoming Encounters Date Type Department Care Team (Late st Contact Info) Description 07/03/2024 9:00 AM EDT Medication Management [facility] MEDICINE [address] [place] [address] Sherrill Franklin, LynD [address] [place] [address] 09/10/2024 9:00 AM EDT Office Visit [facility] OPTOMETRY [address] [place] [address] Lakesha Weston, OD [address] [place] [address] Scheduled Orders Name Type Priority Associated Diagnoses Order Schedule XR Foot 3+ Views Right Imaging Routine Toe swelling Expected: 06/08/2024, Expires: 06/08/2025 XR Toes 2+ Views Right Imaging Routine Toe swelling Expected: 06/08/2024, Expires: 06/08/2025 Transthoracic Echo (TTE) Complete Echocardiography Routine Dizziness Palpitations Expected: 06/08/2024 (Approximate), Expires: 06/08/2026 Holter monitor - 24 hour Cardiac Services Routine Palpitations Expected: 06/08/2024 (Approximate), Expires: 06/08/2026 CT Head w/o Contrast Imaging Routine Dizziness Expected: 06/08/2024, Expires: 06/08/2025 Scheduled Referrals Name Type Priority Associated Diagnoses Order Schedule Referral to Podiatry Outpatient Referral STAT Toe swelling Expected: 06/08/2024 (Approximate), Expires: 06/08/2025 Referral to Cardiology Outpatient Referral Routine Palpitations Expected: 06/08/2024 (Approximate), Expires: 06/08/2025 Referral to Pain Medicine Outpatient Referral Routine Chronic neck pain Expected: 06/08/2024 (Approximate), Expires: 06/08/2025 documented as of this encounter Procedures Procedure Name Priority Date/Time Associated Diagnosis Comments POCT GLYCATED HEMOGLOBIN, TOTAL Routine 06/08/2024 11:37 AM EDT Type 2 diabetes mellitus with retinopathy of both eyes, without long-term current use of insulin, macular edema presence unspecified, unspecified retinopathy severity (CMS/HCC) POCT GLUCOSE Routine 06/08/2024 11:33 AM EDT Type 2 diabetes mellitus with retinopathy of both eyes, without long-term current use of insulin, macular edema presence unspecified, unspecified retinopathy severity (CMS/HCC) documented in this encounter Results * (ABNORMAL) POCT HGB A1C (06/08/2024 11:37 AM EDT) Hemoglobin A1C 7.3(A) 4.0 - 6.0 % QC Media Lot # [id number] Lot# Expiration Date ,026 Blood 06/08/2024 11:3 7 AM EDT Jenifer Chi DO POINT OF CARE TEST ENTER/WOOD T ORDERABLES Final Result * POCT Glucose (06/08/2024 11:33 AM EDT) Glucose Blood, POC 121 60 - 200 mg/dL QC Media Lot # [id number] Lot# Expiration Date ,025 Blood Capillary blood specimen / Unknown 06/08/2024 11:33 AM EDT Jenifer Chi DO POINT OF CARE TEST ENTER/WOOD T ORDERABLES Final Result documented in this encounter Visit Diagnoses Diagnosis Type 2 diabetes mellitus with retinopathy of both eyes, without long-term current use of insulin, macular edema presence unspecified, unspecified retinopathy severity (CMS/HCC)- Primary Essential hypertension Unspecified essential hypertension Other hyperlipidemia Chronic kidney disease, stage 2 (mild) Chronic neck pain Cervicalgia Chronic pain of both knees Toe swelling Swelling of limb Dizziness Dizziness and giddiness Palpitations Healthcare maintenance documented in this encounter Additional Health Concerns Assessment Noted Time PHQ-9 Depression Total Score: 3 11/10/19 24 9:00 AM EDT documented as of this encounter Care Teams Agricultural Education Teacher Relationship Specialty Start Date End Date Jenifer Chi DO [address] [place] [address] PCP - General Family Medicine 11/10/23 Sherrill Franklin PharmD [address] [place] [address] Pharmacist Internal Medicine 11/17/23 documented as of this encounter
--- OUTSIDE RECORDS SUMMARY | 2024-06-08 13:28 | XMS_ITS | Encounter Summary ---
Author Organization [employer] Address [address] [facility] 7t [place] [address] Care Team Providers Care On Call Name Role Phone AlonJenifer Primary Care Provider Sherrill Franklin PharmD Unavailable [phone] Encounter Details Date Type Department Care Team (Latest Contact Info) Description 06/08/2024 Travel Social History Tobacco Use Types Packs/Day [...] Description 07/03/2024 9:00 AM EDT Medication Management [facility] MEDICINE [address] [place] [address] Sherrill Franklin PharmD [address] [place] [address] 09/10/2024 9:00 AM EDT Office Visit [facility] OPTOMETRY [address] [place] [address] Tarka, Lakesha, OD [address] [place] [address] documented as of this encounter Visit Diagnoses Not on filedocumented in this encounter Additional Health Concerns Assessment Noted Time PHQ-9 Depression Total Score: 3 11/10/19 9:00 AM EDT documented as of this encounter Care Teams On Call Relationship Specialty Start Date End Date Jenifer Chi DO [address] [place] [address] PCP - General Family Medicine 11/10/23 Sherrill Franklin PharmD [address] [place] [phone] Pharmacist Internal Medicine 11/17/23 documented as of this encounter
--- OUTSIDE RECORDS SUMMARY | 2024-06-08 13:28 | XMS_ITS | Clinical Summary ---
Author Organization [email or web address] Address [address] [facility] [address] [place] [address] Care Team Providers Care Golf Instructor Name Role Phone AlonJenifer Primary Care Provider Sherrill Franklin PharmD Unavailable [phone] Allergies No known active allergies Medications Alcohol Swabs 70 % pads Use to test blood sugar 2 times daily 100 each 11/10/19 Active Blood Glucose Monitoring Suppl (Involvio [place] Lite) w/Device kit Use to test blood sugar 2 times daily 1 kit 11/10/19 Active Blood Pressure kit 1 each 1 (one) time per week. 1 kit 11/10/19 Active acetaminophen (Tylenol 8 Hour) 650 MG ER tablet Take 1 tablet (650 mg) by mouth every 8 (eight) hours if needed for mild pain. Do not crush, chew, or split. 60 tablet 2 11/10/19 24 2024 Active aspirin (Aspirin Adult Low Dose) 81 MG EC tablet Take 1 tablet (81 mg) by mouth Once per day. 30 tablet 11/10/19 24 2024 Active losartan (Cozaar) 100 MG tablet Take 1 tablet (100 mg) by mouth Once per day. 30 tablet 11/10/19 24 2024 Active metoprolol succinate XL (Toprol XL) 50 MG 24 hr tablet Take 1 tablet (50 mg) by mouth Once per day. Do not crush or chew. 30 tablet 11/10/19 24 2024 Active polycarbophil (FiberCon) 625 MG tablet Take 1 tablet (625 mg) by mouth 2 times daily. 60 tablet 11 11/10/19 24 2024 Active GAS RELIEF 125 MG capsule TAKE 1 CAPSULE BY MOUTH 4 TIMES A DAY IN THE MORNING, AT NOON, IN THE EVENING, AND AT BEDTIME NEEDED FOR GAS 11/10/19 Active atorvastatin (Lipitor) 80 MG tablet Take 1 tablet (80 mg) by mouth Once per day. 30 tablet 11 11/17/19 24 2024 Active amLODIPine (Norvasc) 10 MG tablet Take 1 tablet (10 mg) by mouth Once per day. 30 tablet 11 11/17/19 24 2024 Active TRUEplus Lancets 33G misc TEST BLOOD SUGAR EVERY DAY 100 each 01/04/20 Active glucose blood (FREESTYLE LITE) test strip Use to test blood sugar once daily 50 each 01/04/20 24 2024 Active Tirzepatide (Mounjaro) 5 MG/0.5ML solution auto-injectorIn dications:Type 2 diabetes mellitus with retinopathy of both eyes, without long-term current use of insulin, macular edema presence unspecified, unspecified retinopathy severity (CMS/HCC) Inject 5 mg under the skin 1 (one) time per week. 2 mL 11 02/14/20 24 Active DULoxetine (Cymbalta) [address] capsule TAKE 1 CAPSULE BY MOUTH EVERY MORNING (DO NOT BREAK, CRUSH, DISSOLVE OR CHEW) 30 capsule 3 03/08/19 25 Active gabapentin (Neurontin) 400 MG capsule TAKE 1 CAPSULE BY MOUTH EVERY EVENING 30 capsule 3 03/08/19 25 Active Florastor 250 MG capsule Take 1 capsule by mouth Once per day. 02/14/20 24 Active polyvinyl alcohol (Liquifilm Tears) 1.4 % ophthalmic solution INSTILL 1 DROP IN EACH EYE THREE TIMES DAILY IN THE MORNING, AT NOON, AND AT BEDTIME NEEDED DRY EYES 03/13/19 25 Active docusate sodium (Colace) 100 MG capsuleIndicati ons:Constipatio n, unspecified constipation type TAKE 1 CAPSULE BY MOUTH ONCE DAILY 90 capsule 1 05/25/19 25 Active empagliflozin (Jardiance) 25 MGIndications:T ype 2 diabetes mellitus with retinopathy of both eyes, without long-term current use of insulin, macular edema presence unspecified, unspecified retinopathy severity (CMS/HCC) Take 1 tablet (25 mg) by mouth Once per day. 90 tablet 3 05/22/19 25 2025 Active metFORMIN XR (Glucophage-XR) 750 MG 24 hr tabletIndicatio ns:Type 2 diabetes mellitus with retinopathy of both eyes, without long-term current use of insulin, macular edema presence unspecified, unspecified retinopathy severity (CMS/HCC) Take 2 tablets (1,500 mg) by mouth with breakfast. Do not crush, chew, or split. 180 tablet 1 05/22/19 25 Active meclizine (Antivert) 25 MG tablet TAKE 1 TABLET BY MOUTH THREE TIMES DAILY IN THE MORNING, AT NOON, AND AT BEDTIME NEEDED FOR DIZZINESS 30 tablet 2 05/25/19 25 Active sulfamethoxazol e-trimethoprim (Bactrim DS) 800-160 MG tablet Take 1 tablet by mouth 2 times daily for 7 days. 14 tablet 06/09/19 25 2024 Active cephalexin (Keflex) 500 MG capsule Take 1 capsule (500 mg) by mouth 2 times daily for 7 days. 14 capsule 06/09/19 25 2024 Active Diclofenac Sodium 1 % gel Apply 2 g topically if needed in the morning, at noon, in the evening, and at bedtime (pain). 150 g 3 06/09/19 25 Active cholestyramine (Questran) 4 g packet Take 1 packet (4 g) by mouth if needed in the morning, at noon, and at bedtime (diarrhea). 90 packet 11 11/10/19 24 2024 Discontinued meclizine (Antivert) 25 MG tablet Take 1 tablet (25 mg) by mouth if needed in the morning, at noon, and at bedtime for dizziness. 30 tablet 2 11/10/19 24 2024 Discontinued empagliflozin-m etFORMIN ER (Synjardy XR) 25-1000 MG 24 hr tablet Take 1 tablet by mouth with breakfast. 30 tablet 11 02/14/20 24 2024 Discontinued(A lternate therapy) docusate sodium (Colace) 100 MG capsuleIndicati ons:Constipatio n, unspecified constipation type Take 1 capsule (100 mg) by mouth Once per day. 90 capsule 02/16/19 25 2024 Discontinued polyethylene glycol, PEG, 3350 (MiraLax) 17 GM/SCOOP powderIndicatio ns:Constipation , unspecified constipation type Take 17 g by mouth Once per day. 527 g 2 02/16/19 25 2024 Additional Information Patient not taking.Reported on 05/21/2024 dextran 70-hypromellose (artificial tears) 0.1-0.3 % ophthalmic solutionIndicat ions:Dry eyes, bilateral Administer 1 drop into both eyes if needed in the morning, at noon, and at bedtime for dry eyes. 15 mL 6 03/13/19 25 2024 Discontinued(M ed list cleanup (will not trigger [...] Encounters Date Type Department Care Team Description 06/08/2024 11:15 AM EDT Office Visit [facility] [address] [place] [phone] Jenifer Chi DO Type 2 diabetes mellitus with retinopathy of both eyes, without long-term current use of insulin, macular edema presence unspecified, unspecified retinopathy severity (CMS/HCC) (Primary Dx); Essential hypertension; Other hyperlipidemia; Chronic kidney disease, stage 2 (mild); Chronic neck pain; Chronic pain of both knees; Toe swelling; Dizziness; Palpitations; Healthcare maintenance 06/08/2024 Travel 05/24/2024 Refill [facility] [address] [place] [phone] Jenifer Chi DO 05/21/2024 Orders Only [facility] [address] [place] [address] Jenifer Chi DO 05/21/2024 Travel 05/21/2024 Refill [facility] [address] [place] [address] Beba Palomares MD Constipation, unspecified constipation type 04/25/2024 Outside Procedure [facility] [address] [place] [address] JanYao batesn, OD Presbyopia (Primary Dx) 04/20/2024 9:00 AM EST Office Visit [facility] OPT[facility] [address] [place] [address] JanYaon, OD Myopia of both eyes (Primary Dx) 04/20/2024 Travel 04/03/2024 Telephone [facility] [address] [place] [address] Sherrill Franklin, PharmD 03/20/[address] [address] Jenifer Chi DO Telephone Call 03/13/2024 9:00 AM EST Office Visit [facility] [address] [place] [address] Lakesha Weston, OD Proliferative diabetic retinopathy of both eyes without macular edema associated with type 2 diabetes mellitus (CMS/HCC) (Primary Dx); Presbyopia; Dry eyes, bilateral 03/13/2024 Travel from Last 3 Months Immunizations Name Administration [...] Mass Index 25.71 06/08/2024 11:28 AM EDT Plan of Treatment Upcoming Encounters Date Type Department Care Team (Late st Contact Info) Description 07/03/2024 9:00 AM EDT Medication Management [facility] [address] [place] [address] Sherrill Franklin, PharmD [address] [place] [address] 09/10/2024 9:00 AM EDT Office Visit [facility] OPT[facility] [address] [place] [address] Lakesha Weston, OD [address] [place] [address] Health Maintenance Due Date Last Done Comments CT Colonography 1950 Colonoscopy 1950 Colorectal Cancer Screening 1950 FIT DNA/Cologuard 1950 FIT 1950 FOBT 1950 Sigmoidoscopy 1950 Diabetes: Foot Exam 05/30/1961 Alcohol/Substance Use Screening 1963 DTaP/Tdap/Td Vaccines (1 - Tdap) 05/30/1970 Mammogram 1991 Zoster Vaccines (2 of 2) 07/16/2024 05/21/2024 Diabetes: Hemoglobin A1C 09/07/2024 025, 05/21/2024, 02/14/2024, Additional history exists SDOH Screening 11/01/2024 11/02/2023 Depression Screening 11/09/2024 11/10/2023, 11/10/19 24 Diabetes: Urine Protein Screening 11/09/2024 11/10/2023 Eye Exam 03/13/2025 03/13/2024, 02/15, 03/13/2024, Additional history exists Lipid Panel 05/21/2025 05/21/2024, 11/10/2023 Tobacco Screening 06/08/2025 06/08/2024 COVID-19 Vaccine Completed 11/10/2023 Hepatitis C Screening [...] presence unspecified, unspecified retinopathy severity (CMS/HCC) POCT GLYCATED HEMOGLOBIN, TOTAL Routine 05/21/2024 2:40 PM EDT Type 2 diabetes mellitus with retinopathy of both eyes, without long-term current use of insulin, macular edema presence unspecified, unspecified retinopathy severity (CMS/HCC) LIPID PANEL, STANDARD Routine 05/21/2024 10:24 AM EDT HEPATIC FUNCTION PANEL Routine 05/21/2024 10:24 AM EDT AMB REFERRAL TO ORTHOPAEDIC SURGERY Urgent 03/17/2024 Chronic pain of both knees OCT, RETINA - OU - BOTH EYES Routine 03/13/2024 9:00 AM EST Proliferative diabetic retinopathy of both eyes without macular edema associated with type 2 diabetes mellitus (CMS/HCC) ALBUMIN, RANDOM URINE W/CREATININE Routine 11/10/2023 [...] Recently Relevant to Health Maintenance Results * (ABNORMAL) POCT HGB A1C (06/08/2024 11:37 AM EDT) Only the most recent of2 resultswithin the time period is included. Hemoglobin A1C 7.3(A) 4.0 - 6.0 % QC Media Lot # [id number] Lot# Expiration Date Blood 06/08/2024 11:3 7 AM EDT Jenifer Chi DO POINT OF CARE TEST ENTER/WOOD T ORDERABLES Final Result * POCT Glucose (06/08/2024 11:33 AM EDT) Glucose Blood, POC 121 60 - 200 mg/dL QC Media Lot # [id number] Lot# Expiration Date Blood Capillary blood specimen / Unknown 06/08/2024 11:33 AM EDT Jenifer Chi DO POINT OF CARE TEST ENTER/WOOD T ORDERABLES Final Result * (ABNORMAL) Hepatic Function Panel (05/21/2024 10:24 AM EDT) Bilirubin, Total 0.3 0.0 - 1.0 mg/dL [facility] Bilirubin, Direct 0.1 0.0 - 0.5 mg/dL [facility] Aspartate Amino Transferase 33(H) 5 - 31 U/L [facility] Comment:Slight Hemolysis.Int erpret result with caution. Alanine Aminotransferase 17 0 - 31 U/L [facility] Total Protein 7.7 6.5 - 8.0 g/dL [facility] Albumin Level 4.0 3.5 - 5.0 g/dL [facility] Alkaline Phosphatase 86 39 - 117 U/L [facility] 05/21/2024 10:2 4 AM EDT 05/21/2024 11:07 AM EDT us Jenifer Chi DO LAB BLOOD ORDERABLES Final R esult [facility] [address] [place] [phone] * (ABNORMAL) Lipid Panel, Standard (05/21/2024 10:24 AM EDT) Triglycerides 161(H) <150 mg/dL [facility] Comment:Desirable Triglyceri de: less than 150 mg/dLBorderline High Triglyceride 150-199 mg/dLHigh Triglyceride: 200-499 mg/dLVery High Triglyceride: greater than or equal to 5OO mg/dL Cholesterol 161 <200 mg/dL [facility] Comment:Desirable Cholestero l: less than 200 mg/dLBorderline High Cholesterol: 200-239 mg/dLHigh Cholesterol: greater than 239 mg/dL LDL Cholesterol Calculated 90 <100 mg/dL [facility] Comment:Desirable LDL: less than 100 mg/dLNear Optimal/Above Optimal LDL: 110- 129 mg/dLBorderline High LDL: 130-159 mg/dLHigh LDL: 160-189 mg/dLVery High LDL: greater than or equal to 190 mg/dL HDL Cholesterol 39(L) >40 mg/dL [facility] Comment:Desirable HDL: great er than 40 mg/dL Note: This HDL assay may give artificially low results in patients with liver disease. 05/21/2024 10:2 4 AM EDT 05/21/2024 11:07 AM EDT Jenifer Chi DO LAB BLOOD ORDERABLES Final R esult [facility] [address] [place] [phone] * Referral to Orthopaedic Surgery (03/17/2024) Jenifer [...] both eyes (OU). Stable to last. Monitor. Lakesha Weston OD OPHTH TOMOGRAPHY Final Result * Albumin, Random Urine W/Creatinine (11/10/2023 10:25 AM EDT) Creatinine, Urine 280.99 mg/dL [facility] Microalbumin Urine 26.0 mg/L [facility] Microalbum Creatinine Ratio Ur 9.2 <30 ug/mg cr [facility] Comment:Albumin/Creatinine R atio Reference Ranges: Normal: < 30 ug/mg creatinine Microalbuminuria: 30 - 300 ug/mg creatinineClinical Albuminuria: > 300 ug/mg creatinine Urine (Urine, Random) 11/10/2023 10:25 AM EDT 11/10/2023 11:42 AM EDT us Jenifer Alon DO LAB URINE ORDERABLES Final R esult [facility] [address] [place] [phone] * Hepatitis C Antibody with Reflex to HCV, RNA, Quantitative, Real-Time PCR (11/10/2023 10:21 AM EDT) Hepatitis C Antibody Nonreactive Nonreactive [facility] Comment:Antibodies to HCV no t detected; does not exclude early acuteHCV infection. Blood Venous blood specimen / Unknown 11/10/2023 10:21 AM EDT 11/10/2023 11:51 AM EDT us Jenifer Alon DO LAB BLOOD ORDERABLES Final R esult Performing Organization Address City/[facility]/ZIP Co de Phone Number [facility] [address] [place] [phone] from Last 3 Months or Most Recently Relevant to Health Maintenance Insurance [place] [address] [place] [id number] [facility] Care Teams Golf Instructor Relationship Specialty Start Date End Date Jenifer Chi DO [address] [place] [address] PCP - General Family Medicine 11/10/23 Sherrill Franklin, Josefa [address] [place] [address] Pharmacist Internal Medicine 11/17/23
== END 2024-06-08 12:49 | disposition home or self-care (01) ==
LOC: HO.HHCX 12:48
PROVIDERS: Visit Provider Family Medicine
DX: M79.89 Other specified soft tissue disorders (principal)
CPT/HCPCS: 73630; 73660

== ENCOUNTER → 2024-06-08 12:49 | Outpatient (BNV) | payer MEDICARE, MEDICAID, SELFPAY | PROVIDERS: Visit Provider Radiology Diagnostic Radiology | DX: M19.071 Primary osteoarthritis, right ankle and foot (principal); R22.41 Localized swelling, mass and lump, right lower limb | CPT/HCPCS: 73630; 73660 ==

== ENCOUNTER → 2024-07-05 10:53 | Outpatient (REF) | payer MEDICARE, MEDICAID, SELFPAY ==
--- NOTE | 2024-07-05 10:56 | CA_ITS ---
Transthoracic Echocardiogram Patient (Last, First, Middle): Yani Stewart A Gender: Female Date of : 1950 Age: 74 Procedure Date: 07/05/2024 Procedure Type: Transthoracic Echocardiogram Location: OP Height: 162.56 cm Weight: 79.38 kg BSA: 1.85 m2 Heart Rate: bpm BP: 156 / 86 mmHg Etl [employer] Architect: GUILLERMO Referring MD: Jenifer Chi DO Test Design Engineer: Ed Steele MD Symptoms: R42 DIZZINESS PALPS R002 Study Quality: Adequate ECG Rhythm: Sinus Conclusions: - 1. Normal LV ejection fraction 55-60% with impaired relaxation filling pattern 2. Moderate mitral annular calcification with normal cardiac valvular Dopplers 3. Normal measured RV systolic pressure Findings Left Ventricle Normal left ventricular size, thickness, and systolic function. The visually estimated ejection fraction is between 55-60%. Spectral Doppler is indicative of an impaired relaxation filling pattern. Right Ventricle Normal right ventricular cavity size and systolic function. Atria Both atria are normal in size. Interatrial shunt cannot be excluded. Aortic Valve The aortic valve structure and function is likely normal. There is no aortic valve stenosis. There is no aortic valve regurgitation. Mitral Valve There is mild anterior and moderate posterior mitral leaflet thickening. There is moderate mitral annular calcification. There is trace mitral valve regurgitation. There is no mitral valve stenosis. Pulmonic Valve The pulmonic valve was not well visualized. Tricuspid Valve Likely normal tricuspid valve structure and function. There is trace tricuspid valve regurgitation. The right ventricular systolic pressure is normal. The right ventricular systolic pressure is 16 mmHg. Normal right atrial pressure. There is no evidence of pulmonary hypertension. Great Vessels The aorta was not well visualized. The pulmonary artery was not well visualized. Venous The inferior vena cava is normal in size and collapses greater than 50% with inspiration. Pericardium/Pleural The pericardium was not well visualized. Prior Study Comparison No prior study available for comparison. Measurements 2D Linear Measurements IVSd: 1.17 0.6-0.9/0.6-1.0 cm LVIDd: 3.20 3.9-5.3/4.2-5.9 cm LVIDd Index: 1.73 2.4-3.2/2.2-3.1 cm/m2 LVIDs: 2.54 2.0-3.6 cm LVPWd: 0.93 0.7-1.1 cm LA Diam: 3.20 2.7-3.8/3.0-4.0 cm LAIDs Index: 1.73 1.5-2.3 cm/m2 LV Mass: 120.84 67-162/88-224 g LV Mass Index: 65.32 43-95/49-115 g/m2 LVOT Diam: 2.20 3.0+(-)1.3 cm 2D Systolic Function EF 4C: 54.10 >55% EF 2C: 55.80 >55% EF BiP: 57.20 >55% Mitral Valve MV Pk E: 0.69 MV PK A: 1.36 MV Decel Time: 245.00 E/A: 0.50 E'Lateral: 4.13 E'Medial: 3.05 E/E' Med: 22.60 E/E' Lat: 16.70 PHT: 72.00 MVA PHT: 3.06 Decel Nance: 2.82 Aortic Valve AoV Pk Ashok: 1.31 AoV Mn Ashok: 0.94 AoV VTI: 0.29 AoV Pk Grad: 7.00 Aov Mn Grad: 4.00 CHUCK Cont.VTI: 2.22 LVOT LVOT Pk Ashok: 0.75 LVOT Mn Ashok: 0.56 LVOT VTI: 0.17 LVOT Pk Grad: 2.00 LVOT Mn Grad: 1.00 LVOT Diam: 2.20 LVOT Area: 3.80 Diastolic Function MV Pk E: 0.69 MV Pk A: 1.36 E/A: 0.50 E'Medial: 3.05 E/E' Med: 22.60 E' Laterial: 4.13 E/E' Lat: 16.70 Right Ventricle TAPSE (mm): 18.10 TVS' Ashok: 11.10 Tricuspid Valve TR Pk Ashok: 1.77 TR Pk Grad: 13.00 RA Press: 3.00 RVSP: 16.00 Great Vessels Aorta Sinus of Valsalva: 3.13 2.0-3.5 cm Updated in Other Vendor System with Status of Final Ed Steele MD electronically signed on 07/05/2024 3:59:37 PM with status of Final
--- OUTSIDE RECORDS SUMMARY | 2024-07-05 11:35 | XMS_ITS | Encounter Summary ---
Author Organization [email or web address] Address [address] [facility] [address] [place] [address] Care Team Providers Care Acid Filler Name Role Phone AlonJenifer Primary Care Provider Sherrill Franklin PharmD Unavailable Encounter Details Date Type Department Care Team (Late st Contact Info) Description 02/17/2024 Orders Only [facility] [address] [place], [place] [phone] Beba Palomares MD [address] [place], [place] [phone] Constipation, unspecified constipation type (Primary Dx) Social [...] Care Team (Late st Contact Info) Description 08/06/2024 9:30 AM EDT Medication Management [facility] [address] [place] [address] Sherrill Franklin, PharmD [address] [place] [address] 09/10/2024 9:00 AM EDT Office Visit [facility] OPTOM[facility] [address] [place] [address] Tarka, Lakesha, OD [address] [place] [address] documented as of this encounter Visit Diagnoses Diagnosis Constipation, unspecified constipation type- Primary documented in this encounter Additional Health Concerns Assessment Noted Time PHQ-9 Depression Total Score: 3 11/10/19 24 9:00 AM EDT documented as of this encounter Care Teams Acid Filler Relationship Specialty Start Date End Date Jenifer Chi DO [address] [place] [phone] PCP - General Family Medicine 11/10/23 Sherrill Franklin, PharmD [address] [place] [phone] Pharmacist Internal Medicine 11/17/23 documented as of this encounter
--- OUTSIDE RECORDS SUMMARY | 2024-07-05 11:35 | XMS_ITS | Encounter Summary ---
Author Organization [employer] Address [address] [facility] 7[address] [place] [address] Care Team Providers Care Reliability Engineer Name Role Phone AlonJenifer Primary Care Provider [phone] Sherrill Franklin PharmD Unavailable [phone] Encounter Details Date Type Department Care Team (Latest Contact Info) Description 07/03/2024 Travel Social History Tobacco Use Types Packs/Day [...] Description 08/06/2024 9:30 AM EDT Medication Management [facility] [address] [place] [address] Sherrill Franklin PharmD [address] [place] [address] 09/10/2024 9:00 AM EDT Office Visit [facility] OPTOMETRY [address] [place] [address] Tarka, Lakesha, OD [address] [place] [address] documented as of this encounter Visit Diagnoses Not on filedocumented in this encounter Additional Health Concerns Assessment Noted Time PHQ-9 Depression Total Score: 3 11/10/19 24 9:00 AM EDT documented as of this encounter Care Teams Reliability Engineer Relationship Specialty Start Date End Date Jenifer Chi DO [address] [place] [address] PCP - General Family Medicine 11/10/23 Sherrill Franklin PharmD [address] [place] [phone] Pharmacist Internal Medicine 11/17/23 documented as of this encounter
--- OUTSIDE RECORDS SUMMARY | 2024-07-05 11:35 | XMS_ITS | Clinical Summary ---
Author Organization [employer] Address [address] [place] [address] Care Team Providers Care Warpman Name Role Phone AlonJenifer Primary Care Provider Sherrill Franklin PharmD Unavailable Allergies No known active allergies Medications Alcohol Swabs 70 % pads Use to test blood sugar 2 times daily 100 each 11/10/19 Active Blood Glucose Monitoring Suppl ([employer] [place] Lite) w/Device kit Use to test blood sugar 2 times daily 1 kit 11/10/19 Active Blood Pressure kit 1 each 1 (one) time per week. 1 kit 11/10/19 Active aspirin (Aspirin Adult Low Dose) 81 MG EC tablet Take 1 tablet (81 mg) by mouth Once per day. 30 tablet 11/10/19 Active losartan (Cozaar) 100 MG tablet Take 1 tablet (100 mg) by mouth Once per day. 30 tablet 11/10/19 Active metoprolol succinate XL (Toprol XL) 50 MG 24 hr tablet Take 1 tablet (50 mg) by mouth Once per day. Do not crush or chew. 30 tablet 11/10/19 Active polycarbophil (FiberCon) 625 MG tablet Take 1 tablet (625 mg) by mouth 2 times daily. 60 tablet 11/10/19 Active GAS RELIEF 125 MG capsule TAKE [...] TEST BLOOD SUGAR EVERY DAY 100 each 5 01/04/20 Active glucose blood (FREESTYLE LITE) test [...] DAILY 90 capsule 1 05/25/19 25 Active meclizine (Antivert) 25 MG tablet TAKE 1 TABLET BY MOUTH THREE TIMES DAILY IN THE MORNING, AT NOON, AND AT BEDTIME NEEDED FOR DIZZINESS 30 tablet 2 05/25/19 25 Active Diclofenac Sodium 1 % gel Apply 2 g topically if needed in the morning, at noon, in the evening, and at bedtime (pain). 150 g 3 06/09/19 25 Active acetaminophen (Tylenol 8 Hour) 650 MG ER tablet Take 1 tablet (650 mg) by mouth every 8 (eight) hours if needed for mild pain. Do not crush, chew, or split. 60 tablet 2 06/09/19 25 026 Active empagliflozin-m etFORMIN ER (Synjardy XR) 12.5-1000 MG 24 hr tabletIndicatio ns:Type 2 diabetes mellitus with retinopathy of both eyes, without long-term current use of insulin, macular edema presence unspecified, unspecified retinopathy severity (CMS/HCC) Take 2 tablets by mouth with breakfast. 60 tablet 11 07/04/19 026 Active polyethylene glycol, PEG, 3350 (Glycolax) 17 GM/SCOOP powder TAKE 17 GM MIXED IN 8 OUNCES OF WATER, COFFEE OR TEA ONCE DAILY 05/22/19 Active acetaminophen (Tylenol 8 Hour) 650 MG ER tablet Take 1 tablet (650 mg) by mouth every 8 (eight) hours if needed for mild pain. Do not crush, chew, or split. 60 tablet 2 11/10/19 24 025 Discontinued(Re order (will not trigger notification to Pharmacy)) cholestyramine (Questran) 4 g packet Take 1 packet (4 g) by mouth if needed in the morning, at noon, and at bedtime (diarrhea). 90 packet 11 11/10/19 24 025 Discontinued empagliflozin (Jardiance) 25 MGIndications:T ype 2 diabetes mellitus with retinopathy of both eyes, without long-term current use of insulin, macular edema presence unspecified, unspecified retinopathy severity (CMS/HCC) Take 1 tablet (25 mg) by mouth Once per day. 90 tablet 3 05/22/19 25 025 Discontinued(Al ternate therapy) metFORMIN XR (Glucophage-XR) 750 MG 24 hr tabletIndicatio ns:Type 2 diabetes mellitus with retinopathy of both eyes, without long-term current use of insulin, macular edema presence unspecified, unspecified retinopathy severity (CMS/HCC) Take 2 tablets (1,500 mg) by mouth with breakfast. Do not crush, chew, or split. 180 tablet 1 05/22/19 25 025 Discontinued(Al ternate therapy) sulfamethoxazol e-trimethoprim (Bactrim DS) 800-160 MG tablet Take 1 tablet by mouth 2 times daily for 7 days. 14 tablet 06/09/19 25 025 cephalexin (Keflex) 500 MG capsule Take 1 capsule (500 mg) by mouth 2 times daily for 7 days. 14 capsule 06/09/19 25 025 Active Problems Problem Noted Date Diagnosed Date [...] Encounters Date Type Department Care Team Description 07/03/2024 Travel 06/15/2024 Telephone [facility] [address] [place] [phone] Jenifer Chi DO Status check-toe 06/11/[address] [phone] Jenifer Chi DO Durable Medical Equipment (DME RX Walker(L&C)) 06/08/2024 11:15 AM EDT Office Visit [address] [address] Jenifer Chi DO Type 2 diabetes mellitus with retinopathy of both eyes, without long-term current use of insulin, macular edema presence unspecified, unspecified retinopathy severity (CMS/HCC) (Primary Dx); Essential hypertension; Other hyperlipidemia; Chronic kidney disease, stage 2 (mild); Chronic neck pain; Chronic pain of both knees; Toe swelling; Dizziness; Palpitations; Healthcare maintenance 06/08/2024 Travel 05/24/2024 Refill [facility] [address] [place] [phone] Jenifer Chi DO 05/21/2024 Orders Only [facility] [address] [place] [address] AlonJenifer, 05/21/2024 Travel 05/21/2024 Refill [facility] [address] [place] [address] Beba Palomares MD Constipation, unspecified constipation type 04/25/2024 Outside Procedure [facility] [address] [place] [address] Jan, Kay, OD Presbyopia (Primary Dx) 04/20/2024 9:00 AM EST Office Visit [facility] [address] [place] [address] Jan, Kay, OD Myopia of both eyes (Primary Dx) 04/20/2024 Travel from Last 3 Months Immunizations Immunization Administration Dates Next Due Hep B, adult [...] Sign Reading Time Taken Comments Blood Pressure 124/72 07/03/2024 9:20 AM EDT Pulse 88 06/08/2024 11:28 AM [...] Description 08/06/2024 9:30 AM EDT Medication Management [facility] [address] [place], [place] [phone] Sherrill Franklin, PharmD [address] [place] [address] 09/10/2024 9:00 AM EDT Office Visit [facility] [address] [place] [address] Lakesha Weston, OD [address] [place] [address] Health Maintenance Due Date Last Done Comments CT Colonography 1950 Colonoscopy 1950 Colorectal Cancer Screening 1950 FIT DNA/Cologuard 1950 FIT 1950 FOBT 1950 Sigmoidoscopy 1950 Diabetes: Foot Exam 05/30/1961 Alcohol/Substance Use Screening 1963 DTaP/Tdap/Td Vaccines (1 - Tdap) 05/30/1970 Mammogram 1991 COVID-19 Vaccine (2 - season) 2024 11/10/2023 Zoster Vaccines (2 of 2) 07/16/2024 05/21/2024 Diabetes: Hemoglobin A1C 09/07/2024 025, 05/21/2024, 02/14/2024, Additional history exists SDOH Screening 11/01/2024 11/02/2023 Depression Screening 11/09/2024 11/10/2023, 11/10/19 24 Diabetes: Urine Protein Screening 11/09/2024 11/10/2023 Eye Exam 03/13/2025 03/13/2024, 02/15, 03/13/2024, Additional history exists Lipid Panel 05/21/2025 05/21/2024, 11/10/2023 Tobacco Screening 06/08/2025 06/08/2024 Hepatitis C Screening Completed 11/10/2023 Influenza Vaccine [...] patient's age to complete this topic Meningococcal B Vaccine Aged Out No l onger eligible based on patient's age to complete [...] Procedure Name Priority Date/Time Associated Diagnosis Comments XR TOES 2+ VIEWS RIGHT Routine 06/08/2024 12:49 PM EDT Toe swelling XR FOOT 3+ VIEWS RIGHT Routine 06/08/2024 12:49 PM EDT Toe swelling POCT GLYCATED HEMOGLOBIN, TOTAL Routine 06/08/2024 11:37 [...] FUNCTION PANEL Routine 05/21/2024 10:24 AM EDT ALBUMIN, RANDOM URINE W/CREATININE Routine 11/10/2023 10:25 [...] Recently Relevant to Health Maintenance Results * XR Toes 2+ Views Right (06/08/2024 12:49 PM EDT) Anatomical Region Laterality Modality Lower Extremities, Toes Left Radiogra phic Imaging 06/08/2024 12:4 9 PM EDT Narrative 06/11/2024 8:08 AM EDT ?[facility] ?[address] ?[place] [address] ?XRay Report ? Signed ? Patient: Neville Bultron,Yani A ?MR#: ?? [id number] ? : 1950 ?Acct:[id number] ? Age/Sex: 74 / F ?ADM Date: 06/08/24 ? Loc: HO.HHCX ? Attending Dr: Jenifer Chi DO ? Ordering Physician: Jenifer Chi DO ?? Date of Service: 06/08/24 ?? Procedure(s): XR toe RT min 2V ?? Accession Number(s): [id number] ? cc: Jenifer Chi DO ? EXAMINATION: ?? XR TOES, RIGHT ? CLINICAL INFORMATION: ?? R great toe redness and swelling ? COMPARISON: ?? None available. ? TECHNIQUE: ?? Three views of the right hallux. ? FINDINGS: ?? Soft tissue swelling of the hallux. Mild soft tissue irregularity in ?? the nailbed. ?? No underlying erosive or permeative bony change. No focal osteopenia ?? noted. No soft tissue gas noted. ? Mild to moderate degenerative changes throughout the MTP joints. ? XR/XR toe RT min 2V ?? IMPRESSION: ?? 1. Soft tissue swelling of the hallux without radiographic evidence of ?? osteomyelitis. ?? 2. Arthritic changes as discussed. ? Electronically signed by: ??Owen Del Toro MD ??06/11/2024 08:05 AM EDT RP ? Dictated By: ?Owen Del Toro MD ? Signed By: ?<Electronically signed by Owen Del Toro MD in OV> ?06/11/24 08 ? DD/ 1249 ? TD/TT: 06/08/24 1250 ? Molding And Trim Installer: ? Procedure Note Bambifunmilayo, Image - 06/11/2024 [facility] [address] [place] [address] XRay Report Signed Patient: Yani Stewart AMR#: [id number] : 1950cct:[id number] Age/Sex: 74 / FADM Date: 06/08/24 Loc: HO.HHCX Attending Dr: Jenifer Chi DO Ordering Physician: Jenifer Chi DO Date of Service: 06/08/24 Procedure(s): XR toe RT min 2V Accession Number(s): [id number] cc: Jenifer Chi DO EXAMINATION: XR TOES, RIGHT CLINICAL INFORMATION: R great toe redness and swelling COMPARISON: None available. TECHNIQUE: Three views of the right hallux. FINDINGS: Soft tissue swelling of the hallux. Mild soft tissue irregularity in the nailbed. No underlying erosive or permeative bony change. No focal osteopenia noted. No soft tissue gas noted. Mild to moderate degenerative changes throughout the MTP joints. XR/XR toe RT min 2V IMPRESSION: 1. Soft tissue swelling of the hallux without radiographic evidence of osteomyelitis. 2. Arthritic changes as discussed. Electronically signed by: Owen Del Toro MD 06/11/2024 08:05 AM EDT Dictated By: Owen Del Toro MD Signed By: <Electronically signed by Owen Del Toro MD in OV> 06/11/24 0805 DD/ 1249 TD/TT: 06/08/24 1250 Molding And Trim Installer: Jenifer Jurcsak DO IMG XR PROCEDURES Final Resu lt * XR Foot 3+ Views Right (06/08/2024 12:49 PM EDT) Anatomical Region Laterality Modality Lower Extremities, Foot Right Radiogra phic Imaging 06/08/2024 12:4 9 PM EDT Narrative 06/11/2024 8:06 AM EDT ?[facility] ?[address] ?[place] [address] ?XRay Report ? Signed ? Patient: Neville Jose,Yani A ?MR#: ?? [id number] ? : 1950 ?Acct:[id number] ? Age/Sex: 74 / F ?ADM Date: 06/08/24 ? Loc: HO.HHCX ? Attending Dr: Jenifer Chi DO ? Ordering Physician: Jenifer Chi DO ?? Date of Service: 06/08/24 ?? Procedure(s): XR foot RT min 3V ?? Accession Number(s): [id number] ? cc: Jenifer Chi DO ? EXAMINATION: ?? XR FOOT, RIGHT ? CLINICAL INFORMATION: ?? R great toe swelling and redness with nail discharge ? COMPARISON: ?? None available. ? TECHNIQUE: ?? AP, lateral, and oblique views of the right foot. ? FINDINGS: ?? Soft tissue swelling of the hallux. No underlying erosive or permeative ?? bony change. No focal osteopenia noted. No soft tissue gas noted. ? The remainder of the foot is normally aligned. No fracture, ?? dislocation, or suspicious bone lesion. Normal plantar arch. ?? Mild to moderate degenerative changes throughout the MTP joints. ?? Mild to moderate degenerative changes in the intertarsal joints and ?? tarsometatarsal joints. There are large plantar and dorsal calcaneal ?? spurs. ? No additional soft tissue abnormality. ? XR/XR foot RT min 3V ?? IMPRESSION: ?? 1. Soft tissue swelling of the hallux without radiographic evidence of ?? osteomyelitis. ?? 2. Arthritic changes as discussed. ? Electronically signed by: ??Owen Del Toro MD ??06/11/2024 08:04 AM EDT RP ? Dictated By: ?Owen Del Toro MD ? Signed By: ?<Electronically signed by Owen Del Toro MD in OV> ?06/11/24 0804 ? DD/ 1249 ? TD/TT: 06/08/24 1250 ? Molding And Trim Installer: ? Procedure Note Donotteeinterpreter, Image - 06/11/[address] [address] XRay Report Signed Patient: Yani Stewart AMR#: [id number] : 1950cct:[id number] Age/Sex: 74 / FADM Date: 06/08/24 Loc: HO.HHCX Attending Dr: Jenifer Chi DO Ordering Physician: Jenifer Chi DO Date of Service: 06/08/24 Procedure(s): XR foot RT min 3V Accession Number(s): [id number] cc: Jenifer Chi DO EXAMINATION: XR FOOT, RIGHT CLINICAL INFORMATION: R great toe swelling and redness with nail discharge COMPARISON: None available. TECHNIQUE: AP, lateral, and oblique views of the right foot. FINDINGS: Soft tissue swelling of the hallux. No underlying erosive or permeative bony change. No focal osteopenia noted. No soft tissue gas noted. The remainder of the foot is normally aligned. No fracture, dislocation, or suspicious bone lesion. Normal plantar arch. Mild to moderate degenerative changes throughout the MTP joints. Mild to moderate degenerative changes in the intertarsal joints and tarsometatarsal joints. There are large plantar and dorsal calcaneal spurs. No additional soft tissue abnormality. XR/XR foot RT min 3V IMPRESSION: 1. Soft tissue swelling of the hallux without radiographic evidence of osteomyelitis. 2. Arthritic changes as discussed. Electronically signed by: Owen Del Toro MD 06/11/2024 08:04 AM EDT Dictated By: Owen Del Toro MD Signed By: <Electronically signed by Owen Del Toro MD in OV> 06/11/24 0804 DD/ 1249 TD/TT: 06/08/24 1250 Molding And Trim Installer: Jenifer Chi DO IMG XR PROCEDURES Final Resu lt * (ABNORMAL) POCT HGB A1C (06/08/2024 11:37 AM EDT) Only the most recent of2 resultswithin the time period is included. Hemoglobin A1C 7.3(A) 4.0 - 6.0 % QC Media Lot # [id number] Lot# Expiration Date Blood 06/08/2024 11:3 7 AM EDT Jenifer Alon DO POINT OF CARE TEST ENTER/WOOD T ORDERABLES Final Result * POCT Glucose (06/08/2024 11:33 AM EDT) Glucose Blood, POC 121 60 - 200 mg/dL QC Media Lot # [id number] Lot# Expiration Date Blood Capillary blood specimen / Unknown 06/08/2024 11:33 AM EDT Jenifer Alon DO POINT OF CARE TEST ENTER/WOOD T ORDERABLES Final Result * (ABNORMAL) Hepatic Function Panel (05/21/2024 10:24 AM EDT) Pathologist [facility] Bilirubin, Total 0.3 0.0 - 1.0 mg/dL [facility] Bilirubin, Direct 0.1 0.0 - 0.5 mg/dL [facility] Aspartate Amino Transferase 33(H) 5 - 31 U/L [facility] Comment:Slight Hemolysis.Int erpret result with caution. Alanine Aminotransferase 17 0 - 31 U/L [facility] Total Protein 7.7 6.5 - 8.0 g/dL [facility] Albumin Level 4.0 3.5 - 5.0 g/dL [facility] Alkaline Phosphatase 86 39 - 117 U/L [facility] 05/21/2024 10:2 4 AM EDT 05/21/2024 11:07 AM EDT Jenifer Alon LAB BLOOD ORDERABLES Final R esult Performing Organization Address City/[facility]/ZIP Co de Phone Number [facility] [address] [place] [address] [phone] * (ABNORMAL) Lipid Panel, Standard (05/21/2024 10:24 AM EDT) Triglycerides 161(H) <150 mg/dL [facility] Comment:Desirable Triglyceri de: less than 150 mg/dLBorderline High Triglyceride 150-199 mg/dLHigh Triglyceride: 200-499 mg/dLVery High Triglyceride: greater than or equal to 5OO mg/dL Cholesterol 161 <200 mg/dL [facility] Comment:Desirable Cholestero l: less than 200 mg/dLBorderline High Cholesterol: 200-239 mg/dLHigh Cholesterol: greater than 239 mg/dL LDL Cholesterol Calculated 90 <100 mg/dL [facility] Comment:Desirable LDL: less than 100 mg/dLNear Optimal/Above Optimal LDL: 110- 129 mg/dLBorderline High LDL: 130-159 mg/dLHigh LDL: 160-189 mg/dLVery High LDL: greater than or equal to 190 mg/dL HDL Cholesterol 39(L) >40 mg/dL [facility] Comment:Desirable HDL: great er than 40 mg/dL Note: This HDL assay may give artificially low results in patients with liver disease. 05/21/2024 10:2 4 AM EDT 05/21/2024 11:07 AM EDT us Jenifer Chi DO LAB BLOOD ORDERABLES Final R esult Performing Organization Address City/[facility]/ZIP Co de Phone Number [facility] [address] [place] [address] [phone] * Albumin, Random Urine W/Creatinine (11/10/2023 10:25 AM EDT) Creatinine, Urine 280.99 mg/dL [facility] Microalbumin Urine 26.0 mg/L [facility] Microalbum Creatinine Ratio Ur 9.2 <30 ug/mg cr [facility] Comment:Albumin/Creatinine R atio Reference Ranges: Normal: < 30 ug/mg creatinine Microalbuminuria: 30 - 300 ug/mg creatinineClinical Albuminuria: > 300 ug/mg creatinine Urine (Urine, Random) 11/10/2023 10:25 AM EDT 11/10/2023 11:42 AM EDT us Jenifer Chi DO LAB URINE ORDERABLES Final R esult Performing Organization Address City/[facility]/ZIP Co de Phone Number [facility] [address] [place] [address] [phone] * Hepatitis C Antibody with Reflex to HCV, RNA, Quantitative, Real-Time PCR (11/10/2023 10:21 AM EDT) Hepatitis C Antibody Nonreactive Nonreactive [facility] Comment:Antibodies to HCV no t detected; does not exclude early acuteHCV infection. Blood Venous blood specimen / Unknown 11/10/2023 10:21 AM EDT 11/10/2023 11:51 AM EDT us Jenifer Chi DO LAB BLOOD ORDERABLES Final R esult Performing Organization Address City/[facility]/ZIP Co de Phone Number [facility] [address] [place] [address] [phone] from Last 3 Months or Most Recently Relevant to Health Maintenance Insurance [place] [id number] MEDICARE [facility] Care Teams Warpman Relationship Specialty Start Date End Date Jenifer Chi DO [address] [place] [address] PCP - General Family Medicine 11/10/23 Sherrill Franklin PharmD [address] [place] [address] Pharmacist Internal Medicine 11/17/23
== END ==
LOC: HO.CARD 10:53
PROVIDERS: PCP Family Medicine; Visit Provider Family Medicine
DX: R00.2 Palpitations (principal)
CPT/HCPCS: 93225; 93306

== ENCOUNTER → 2024-07-05 10:56 | Outpatient (BNV) | payer MEDICARE, MEDICAID, SELFPAY | PROVIDERS: PCP Family Medicine; Visit Provider Internal Medicine Cardiovascular Disease | DX: I34.81 Nonrheumatic mitral (valve) annulus calcification (principal); I51.89 Other ill-defined heart diseases | CPT/HCPCS: 93306 ==

== ENCOUNTER 2024-10-18 10:45 | Outpatient (REF) | payer MEDICARE, MEDICAID, SELFPAY ==
--- OUTSIDE RECORDS SUMMARY | 2024-10-16 09:15 | XMS_ITS | Encounter Summary ---
Author Organization [employer] Address [address] [place] [address] Care Team Providers Care Rn Eligibility Name Role Phone Jenifer Chi DO Primary Care Provider [phone] Reason for Visit * Reason Comments DM Foot Care Poorly controlled ty pe 2 diabetes mellitus with neuropathy ([facility] V24, [facility] V28)Cellulitis of right footPAD (peripheral artery disease) ([facility] V24)Ulcer of toe of right foot, with necrosis of bone ([facility] V24, [facility] V28)Ulcer of toe of right foot, with necrosis of muscl Encounter Details Date Type Department Care Team (Late st Contact Info) Description 10/16/2024 9:15 AM EDT Office Visit Orthopedic Surgery - [place] [address] [address] Brian Evangelista, DPM [address] [address] Poorly controlled type 2 diabetes mellitus with neuropathy ([facility] V24, [facility] V28) (Primary Dx); PAD (peripheral artery disease) ([facility] V24); Ulcer of toe of right foot, with necrosis of muscle ([facility] V24, [facility] V28) Social History Tobacco Use Types Packs/Day Years Used Date Smoking Tobacco: Never Smokeless Tobacco: Never Food Risk Answer Date Recorded Within the past 12 months we worried whether our food would run out before we got money to buy more. Sometimes true 025 Within the past 12 months th e food we bought just didn't last and we didn't have money to get more. Sometimes true 09/16/2024 Interpersonal Safety Answer Date Record ed Physical Abuse 09/14/2024 Verbal Abuse 09/14/2024 Comments Unknown Sex and Gender Information Value Date Recorded Sex Assigned at Not on file Legal Sex Female 10:11 AM EDT Gender Identity Not on file Sexual Orientation Not on file documented as of this encounter Progress Notes * Brian Evangelista, GIGI - 10/16/2024 9:15 AM EDT Referring MD: felisha Last PCP visit: 06/08/2024 IDENTIFIER: Jamin Garcia is a 74 y.o. year old female who presents for consultation. CC: Right foot ulcer HPI: 74-year-old diabetic female presents office chief complaint of ulceration to the right foot. Patient notes that she was in [place] for a certain amount of time and noticed that she had some discoloration to the toe and ultimately a wound. Patient is unable to recall her most recent A1c or her daily sugar. Patient notes she does not have any history of other ulcerations or infections. Patient denies history of vascular complication. Patient is here for evaluation and treatment. 10/04/2024: 74-year-old female returns office with chief complaint of right foot wounds. Patient recently was admitted to the hospital for bone infection and required amputation of the 1st and 5th digit. Patient has been changing the bandage daily and using a surgical shoe. Patient has not been on antibiotics. 10/10/2024: 74-year-old female returns office for right foot 1st and fifth digit amputation. Patienthas been using a bandage with Betadine DSD and a surgical shoe. Patient denies any fever nausea vomiting shortness of breath. 10/16/2024: 74-year-old female returns office for 5th and 1st digit amputation postop. Patient has been undergoing serial debridements due to wound dehiscence. Patient been getting daily dressing changes using surgical shoe as instructed. Patient denies fever nausea vomit shortness of breath A1c from 11/10/2023 8.6% ROS: GENERAL: Pt denies nausea, fever, vomiting, chills, or shortness of breath. Pt in NAD. CARDIOLOGY: pt denies chest pain, palpitations LUNGS: pt denies shortness of breath MUSCULOSKELETAL: See HPI, otherwise no joint pain or swelling, back pain, or muscle pain. SKIN: see HPI, otherwise no lesions, rash or itching NEURO: No persistent headache, weakness or numbness The remainder of the review of systems is noncontributory PAST MEDICAL HISTORY: Patient Active Problem List Diagnosis Chronic wound Diabetic foot infection ([facility] V24, [facility] V28) SOCIAL HISTORY: Social History Tobacco Use Smoking status: Never Smokeless tobacco: Never Substance Use Topics Alcohol use: Not on file ACTIVE MEDICATIONS: Outpatient Medications Marked as Taking for the 10/16/24 encounter (Office Visit) with Brian Evangelista DPM Medication Sig Dispense Refill acetaminophen (TYLENOL 8 HOUR) 650 mg 8 hr tablet Take 1 tablet (650 mg total) by mouth every 8 (eight) hours if needed for mild pain. Do not crush, chew, or split. amLODIPine (NORVASC) 10 mg tablet Take 1 tablet (10 mg total) by mouth 1 (one) time each day. aspirin 81 mg EC tablet Take 1 tablet (81 mg total) by mouth 1 (one) time each day. atorvastatin (LIPITOR) 80 mg tablet Take 1 tablet (80 mg total) by mouth at bedtime. docusate sodium (COLACE) 100 mg capsule Take 1 capsule (100 mg total) by mouth 1 (one) time each day. doxycycline (Vibramycin) 100 mg capsule Take 1 capsule (100 mg total) by mouth 2 (two) times a day for 14 days. 14 capsule 0 DULoxetine (CYMBALTA) [address] capsule Take 1 capsule (60 mg total) by mouth 1 (one) time each day.Do not crush or chew. empagliflozin-metformin (Synjardy) 12.5-1,000 mg tablet Take 2 tablets by mouth 1 (one) time each day with breakfast. gabapentin (NEURONTIN) 400 mg capsule Take 1 capsule (400 mg total) by mouth at bedtime. losartan (Cozaar) 100 mg tablet Take 1 tablet (100 mg total) by mouth 1 (one) time each day. meclizine (ANTIVERT) 25 mg tablet Take 1 tablet (25 mg total) by mouth 3 (three) times a day if needed for dizziness. metoprolol succinate (TOPROL-XL) 50 mg 24 hr tablet Take 1 tablet (50 mg total) by mouth 1 (one) time each day. Do not crush or chew. polycarbophil (FIBERCON) 625 mg tablet Take 1 tablet (625 mg total) by mouth 2 (two) times a day. saccharomyces boulardii (FLORASTOR) 250 mg capsule Take 1 capsule (250 mg total) by mouth 1 (one) time each day. ALLERGIES: Patient has no known allergies. PHYSICAL EXAM: There were no vitals taken for this visit. PODIATRIC EXAMINATION: GENERAL: Patient appears well nourished, with NAD. VASCULAR: Dorsalis pedis pulses are 0/4 bilaterally and Posterior tibial pulses are 0/4 bilaterally. Capillary filling time delayed to the digits. No pallor on elevation or rubor on dependency. Positive hair growth. No varicosities. Denies rest pain or claudication pain. NEUROLOGICAL: Sharp/dull sensation intact, protective sensation intact diminished on Center. Peripheral neuropathy throughout the feet bilaterally ORTHOPEDIC: Good muscle strength 5/5 of all flexors and extensors. Dorsi flexion of ankle ,10 degrees, plantar flexion WNL. No muscle atrophy. Contracted digits which are nonreducible. Arthritic changes of the midtarsal joint. DERMATOLOGICAL:.Wounds to the great toe surgical site to the right great toe used to show dehisced with 1 cm length wound with fibrogranular base at the layer of the musculotendinous tissue. Some serous drainage but no purulence or fluctuance. No streaking cellulitis Some gangrenous changes to the skin layer at the fifth digit. Sutures are in place. No clinical signs of infection BIOMECHANICS: STJ ROM wnl, MTJ ROM wnl, 1st MPJ ROM wnl. IMAGING: Recent amputation to the 1st and 5th toe. No subcutaneous gas IMPRESSION: 1. Poorly controlled type 2 diabetes mellitus with neuropathy (CMS/HCC V24, CMS/HCC V28) 2. PAD (peripheral artery disease) (CMS/HCC V24) 3. Ulcer of toe of right foot, with necrosis of muscle (CMS/HCC V24, CMS/HCC V28) PLAN: Pt was seen and examined, history reviewed. Patient has continued wound dehiscence both to the 1st and 5th digit with the most extreme occurring at the right foot first digit. Patient was educated that there is concern for gangrenous changes to the plantar aspect of the right great toe. Will continue to monitor with serial debridements and wound care and may discuss further amputation if the wound does not show substantial healing Some concerns for continued infection. Patient instructed to continue with antibiotics Open wound selective debridement of devitalized soft tissue, fibrin, epidermis, dermis, thru skin and subcutaneous tissue, and musculotendinous tissue first 20 sq cm or less, using sterile sharp dissection #15 scalpel blade of the right foot wound. Pt. deferred anesthesia. . Devitalized tissue was not sent to pathology. Patient was dressed with Betadine gauze and instructed to continue with surgical shoe ambulation. Patient return in 1 week for site check Brian Evangelista DPM documented in this encounter Plan of Treatment Upcoming Encounters Date Type Department Care Team (Late st Contact Info) Description 10/23/2024 9:00 AM EDT Office Visit Orthopedic Surgery - [place] 250 175 [facility] 250 [place] [address] Brian Evangelista DPM 175 [facility] 250 [place] [address] 11/02/2024 7:00 AM EDT Ancillary Procedure [facility] 101 300 [facility] 101 [place] [address] 12/05/2024 8:30 AM EDT Office Visit Vascular Surgery - [place] 300 [facility] 210 [place] [address] Monika Vu MD [address] [place] [phone] documented as of this encounter Visit Diagnoses Diagnosis Poorly controlled type 2 diabetes mellitus with neuropathy ([facility] V24, [facility] V28)- Primary PAD (peripheral artery disease) ([facility] V24) Unspecified peripheral vascular disease Ulcer of toe of right foot, with necrosis of muscle ([facility] V24, [facility] V28) documented in this encounter Care Teams Rn Eligibility Relationship Specialty Start Date End Date Jenifer Chi DO [address] [place], [place] PCP - General Family Medicine 08/08/24 documented as of this encounter
--- OUTSIDE RECORDS SUMMARY | 2024-10-17 15:30 | XMS_ITS | Encounter Summary ---
Author Organization [email or web address] Address [address] [place] [address] 7t [place] [address] Care Team Providers Care Flower Grower Name Role Phone Pari Chifer Primary Care Provider [phone] Sherrill Franklin PharmD Unavailable Reason for Referral * Consultation (STAT) - Authorized Specialty Diagnoses / Procedures Referred By Contray t Referred To Contact Cardiology Diagnoses Orthostatic hypertension Palpitations Diabetic polyneuropathy associated with type 2 diabetes mellitus (CMS/HCC) Dizziness Keena Pelaez ANP [address] [place] [address] Phone: tel: fax: [facility] Referral ID Status Reason Start Date Expiration Date Visits Requested Visits Authorized [id number] Authorized Specialty Services Required 10/17/2024 10/17/2025 1 1 Reason for Visit * Reason Comments Leg Pain Encounter Details Date Type Department Care Team (Latest Contact Info) Description 10/17/2024 3:30 PM EDT Office Visit [facility] [address] [place] [address] Keena Pelaez ANP [address] [place], [place] [phone] Orthostatic hypertension (Primary Dx); Palpitations; Diabetic polyneuropathy associated with type 2 diabetes mellitus (CMS/HCC); Dizziness Social History Tobacco Use Types Packs/Day Years [...] Sign Reading Time Taken Comments Blood Pressure 130/70 10/17/2024 4:01 PM EDT Pulse 100 10/17/2024 4:01 PM EDT Temperature 36.3 C (97.4 F) 10/17/2024 3:14 PM EDT Respiratory Rate 20 10/17/2024 3:14 PM EDT Oxygen Saturation 99% 10/17/2024 3:14 PM EDT Inhaled Oxygen Concentration - - Weight 73.4 kg (161 lb 12.8 oz) 10/17/2024 3:14 PM EDT Height 162.6 cm (5' 4 ) 10/17/2024 3:14 PM EDT Body Mass Index 27.77 10/17/2024 3:14 PM EDT documented in this encounter Progress Notes * GOPLA Edmond - 10/17/2024 3:30 PM EDT Subjective Patient ID: Yani Garcia is a 74 y.o. female who presents for dizziness. Leg Pain PMH T2DM w/ h/o DM foot infection now s/p amputation, DM complications incl PAD, polyneuropathy & retinopathy, HTN, atherosclerosis, carotid artery disease, HLD, CKD, IBS, OA PCP Dr. Chi [facility] PharmD Sherrill She fell this weekend on Tuesday b/c she was dizzy, she says she is often dizzy. Worse w/ positionchange. Has rollator walker at home that she doesn't use a lot She had something similar year ago in [place] when she was on rybelsus. She is now on ozempic but also relates this sx for mounjaro. She reports palpitations when she gets dizzy, and says she saw cardiology in past and was told all was ok. She had holter and echo 06/2024 as below. Did have long time w/ BG uncontrolled and only recently has DM been controlled per pt and family. Here w/ daughter who provides add'l hx. Yani denies hitting head and does remember everything up to and after the fall. No urinary incontinence. Does have h/o vertigo and has meclizine but it has not helped. Has CT scan in November for head as ordered by PCP. Lab Results Component Value Date HGBA1C 6.4 (A) 09/06/2024 HGBA1C 7.3 (A) 06/08/2024 HGBA1C 7.6 (A) 05/21/2024 HGBA1C 9.2 (A) 02/14/2024 HGBA1C 8.6 (H) 11/10/2023 HGBA1C 9.1 (A) 11/10/[address] [address] Cardiology Report Signed Patient: Yani Stewart MR#: [id number] : 1950 Acct:[id number] Age/Sex: 74 / F ADM Date: 07/05/24 Loc: .CARD Attending Dr: Jenifer Chi DO Ordering Physician: Jenifer Chi DO Date of Service: 07/05/24 Procedure(s): CA echo transthoracic complete Accession Number(s): cc: Jenifer Chi DO Transthoracic Echocardiogram Patient (Last, First, Middle): Yani Stewart A Gender: Female Date of : 1950 Age: 74 Procedure Date: 07/05/2024 Procedure Type: Transthoracic Echocardiogram Location: OP Height: 162.56 cm Weight: 79.38 kg BSA: 1.85 m2 Heart Rate: bpm BP: 156 / 86 mmHg Zumba Instructor: GUILLERMO Referring MD: Jenifer Chi DO Clinic Director: Ed Steele MD Symptoms: R42 DIZZINESS PALPS R002 Study Quality: Adequate ECG Rhythm: Sinus Conclusions: - 1. Normal LV ejection fraction 55-60% with impaired relaxation filling pattern 2. Moderate mitral annular calcification with normal cardiac valvular Dopplers 3. Normal measured RV systolic pressure Findings Left Ventricle Normal left ventricular size, thickness, and systolic function. The visually estimated ejection fraction is between 55-60%. Spectral Doppler is indicative of an impaired relaxation filling pattern. Right Ventricle Normal right ventricular cavity size and systolic function. Atria Both atria are normal in size. Interatrial shunt cannot be excluded. Aortic Valve The aortic valve structure and function is likely normal. There is no aortic valve stenosis. There is no aortic valve regurgitation. Mitral Valve There is mild anterior and moderate posterior mitral leaflet thickening. There is moderate mitral annular calcification. There is trace mitral valve regurgitation. There is no mitral valve stenosis. Pulmonic Valve The pulmonic valve was not well visualized. Tricuspid Valve Likely normal tricuspid valve structure and function. There is trace tricuspid valve regurgitation. The right ventricular systolic pressure is normal. The right ventricular systolic pressure is 16 mmHg. Normal right atrial pressure. There is no evidence of pulmonary hypertension. Great Vessels The aorta was not well visualized. The pulmonary artery was not well visualized. Venous The inferior vena cava is normal in size and collapses greater than 50% with inspiration. Pericardium/Pleural The pericardium was not well visualized. Prior Study Comparison No prior study available for comparison. Measurements 2D Linear Measurements IVSd: 1.17 0.6-0.9/0.6-1.0 cm LVIDd: 3.20 3.9-5.3/4.2-5.9 cm LVIDd Index: 1.73 2.4-3.2/2.2-3.1 cm/m2 LVIDs: 2.54 2.0-3.6 cm LVPWd: 0.93 0.7-1.1 cm LA Diam: 3.20 2.7-3.8/3.0-4.0 cm LAIDs Index: 1.73 1.5-2.3 cm/m2 LV Mass: 120.84 67-162/88-224 g LV Mass Index: 65.32 43-95/49-115 g/m2 LVOT Diam: 2.20 3.0+(-)1.3 cm 2D Systolic Function EF 4C: 54.10 >55% EF 2C: 55.80 >55% EF BiP: 57.20 >55% Mitral Valve MV Pk E: 0.69 MV PK A: 1.36 MV Decel Time: 245.00 E/A: 0.50 E'Lateral: 4.13 E'Medial: 3.05 E/E' Med: 22.60 E/E' Lat: 16.70 PHT: 72.00 MVA PHT: 3.06 Decel Pacific: 2.82 Aortic Valve AoV Pk Ashok: 1.31 AoV Mn Ashok: 0.94 AoV VTI: 0.29 AoV Pk Grad: 7.00 Aov Mn Grad: 4.00 CHUCK Cont.VTI: 2.22 LVOT LVOT Pk Ashok: 0.75 LVOT Mn Ashok: 0.56 LVOT VTI: 0.17 LVOT Pk Grad: 2.00 LVOT Mn Grad: 1.00 LVOT Diam: 2.20 LVOT Area: 3.80 Diastolic Function MV Pk E: 0.69 MV Pk A: 1.36 E/A: 0.50 E'Medial: 3.05 E/E' Med: 22.60 E' Laterial: 4.13 E/E' Lat: 16.70 Right Ventricle TAPSE (mm): 18.10 TVS' Ashok: 11.10 Tricuspid Valve TR Pk Ashok: 1.77 TR Pk Grad: 13.00 RA Press: 3.00 RVSP: 16.00 Great Vessels Aorta Sinus of Valsalva: 3.13 2.0-3.5 cm Updated in Other Vendor System with Status of Final Ed Steele MD electronically signed on 07/05/2024 3:59:37 PM with status of Final Patient: Yani Stewart MR#: [id number] : 1950 Acct:[id number] Age/Sex: 74 / F ADM Date: 07/05/24 [facility] Attending Dr: Jenifer Chi DO Ordering Physician: Jenifer Chi DO Date of Service: 07/05/24 Procedure(s): ECG holter monitor 24 hour Accession Number(s): cc: Jenifer Chi DO * Total monitoring time 1 day. * Underlying rhythm is sinus with an average rate of 83/Min. * Rare supraventricular ectopy. * Rare ventricular ectopy. * No significant pauses or high-grade AV blocks. * No patient markers or diary events. Dictated By: Danny Aiken MD Signed By: <Electronically signed by Danny Aiken MD> 07/22/24 0910 Review of Systems Constitutional: Negative for chills, diaphoresis and fever. HENT: Negative for sore throat and tinnitus. Eyes: Negative for visual disturbance. Respiratory: Negative for cough and shortness of breath. Cardiovascular: Positive for palpitations. Negative for chest pain. Gastrointestinal: Negative for constipation and diarrhea. Endocrine: Negative for polydipsia, polyphagia and polyuria. Genitourinary: Negative for dysuria. Neurological: Positive for dizziness, syncope and weakness. Negative for headaches. Objective BP 130/70 (BP Location: Left arm, Patient Position: Sitting, BP Cuff Size: Adult) [id number] Temp 97.4 ??F (36.3 ??C) (Oral) Resp 20 Ht 5' 4 (1.626 m) Wt 161 lb 12.8 oz (73.4 kg) SpO2 99% BMI 27.77 kg/m?? BP on recheck after standing was 180/100 at 3:45, then 130/70 15 min later HR 110 Improved after sitting Physical Exam Constitutional: General: She is not in acute distress. Appearance: Normal appearance. She is not ill-appearing. HENT: Head: Normocephalic and atraumatic. Right Ear: Tympanic membrane and ear canal normal. Left Ear: Tympanic membrane and ear canal normal. Eyes: General: No scleral icterus. Extraocular Movements: Extraocular movements intact. Pupils: Pupils are equal, round, and reactive to light. Cardiovascular: Rate and Rhythm: Tachycardia present. Pulmonary: Effort: Pulmonary effort is normal. No accessory muscle usage or respiratory distress. Neurological: Mental Status: She is alert and oriented to person, place, and time. Cranial Nerves: No cranial nerve deficit. Psychiatric: Mood and Affect: Mood normal. Behavior: Behavior normal. Requires 2 person assist when standing for support Assessment/Plan Diagnoses and all orders for this visit: Orthostatic hypertension Pt w/ previously uncontrolled DM w/ neuropathy with what appears to be orthostatic hypertension anddizziness. Concern for autonomic neuronopathy. Appreciate cardiology eval DONNELL, tilt nate t. Reviewed w/ pt and daughter to call 911, go to ED for evaluation should syncope occur again. Cont good hydration and good BP and BG control. Change position slowly. - STAT Referral to Cardiology; Future Palpitations - Referral to Cardiology; Future Diabetic polyneuropathy associated with type 2 diabetes mellitus (CMS/HCC) - Referral to Cardiology; Future Dizziness - Referral to Cardiology; Future documented in this encounter Plan of Treatment Upcoming Encounters Date Type Department Care Team (Late st Contact Info) Description 10/26/2024 9:00 AM EDT Medication Management [facility] [address] [place] [address] Sherrill Franklin, LynD [address] [place] [address] Scheduled Referrals Name Type Priority Associated Diagnoses Orde r Schedule Referral to Cardiology Outpatient Referral STAT Orthostatic hypertension Palpitations Diabetic polyneuropathy associated with type 2 diabetes mellitus (CMS/HCC) Dizziness Expected: 10/17/2024 (Approximate), Expires: 10/17/2025 documented as of this encounter Visit Diagnoses Diagnosis Orthostatic hypertension- Primary Palpitations Diabetic polyneuropathy associated with type 2 diabetes mellitus (CMS/HCC) Dizziness Dizziness and giddiness documented in this encounter Additional Health Concerns Assessment Noted Time PHQ-9 Depression Total Score: 3 11/10/19 24 9:00 AM EDT documented as of this encounter Care Teams Flower Grower Relationship Specialty Start Date End Date Jenifer Chi DO [address] [place] [address] PCP - General Family Medicine 11/10/23 Sherrill Franklin PharmD [address] [place] [address] Pharmacist Internal Medicine 11/17/23 documented as of this encounter
--- NOTE | ~2024-10-18 | US_ITS ---
EXAMINATION: US EXTRACRANIAL CAROTID DUPLEX, BILATERAL CLINICAL INFORMATION: Worsening dizziness. COMPARISON: None available. TECHNIQUE: Real-time ultrasound and Doppler techniques (integrating B-mode 2-D vascular images, Doppler spectral analysis and color-flow Doppler imaging) were utilized to interrogate the extracranial carotid arteries, the vertebral arteries and proximal subclavian arteries bilaterally. The degree of stenosis is determined by criteria similar to NASCET. FINDINGS: Arrhythmia episodes. Right Side: 1. There is small mixed atherosclerotic plaque seen in the bifurcation/proximal ICA region. 2. The common carotid artery PSV proximally is 57 cm/s and distally 42 cm/s. 3. The proximal internal carotid artery velocities are 39 cm/s systolic and 11 cm/s diastolic. 4. The proximal external carotid artery PSV is 158 cm/s. 5. The vertebral artery shows antegrade flow. 6. The subclavian artery waveforms are triphasic.. ICA/CC ratio: 0.69. Left Side: 1. There is moderate to large noncalcified and mixed atherosclerotic plaque seen in the bifurcation/proximal ICA region. 2. The common carotid artery PSV proximally is 82 cm/s and distally 74 cm/s. 3. The proximal internal carotid artery velocities are 50 cm/s systolic and 16 cm/s diastolic. 4. The proximal external carotid artery PSV is 68 cm/s. 5. The vertebral artery shows antegrade flow. 6. The subclavian artery waveforms are triphasic. ICA/CC ratio: 0.60. US/US carotid duplex BI IMPRESSION: 1. RIGHT: Small mixed plaques representing 0-49% stenosis by ultrasound criteria. 2. LEFT: Moderate to large mixed plaques representing 0-49% stenosis by ultrasound criteria. Electronically signed by: Simba Tracey MD 10/18/2024 11:44 AM EDT
--- OUTSIDE RECORDS SUMMARY | 2024-10-18 12:20 | XMS_ITS | Encounter Summary ---
Author Organization [employer] Address [address] [facility] 7t [place] [address] Care Team Providers Care Manager Field Services Name Role Phone AlonJenifer Primary Care Provider Sherrill Franklin PharmD Unavailable Encounter Details Date Type Department Care Team (Late st Contact Info) Description 02/17/2024 Orders Only [facility] [address] [place], [place] [phone] Beba Palomares MD [address] [place], [place] [phone] Constipation, unspecified constipation type (Primary Dx) Social [...] Description 10/26/2024 9:00 AM EDT Medication Management [facility] [address] [place] [address] Sherrill Franklin PharmD [address] [place] [address] documented as of this encounter Visit Diagnoses Diagnosis Constipation, unspecified constipation type- Primary documented in this encounter Additional Health Concerns Assessment Noted Time PHQ-9 Depression Total Score: 3 11/10/19 24 9:00 AM EDT documented as of this encounter Care Teams Manager Field Services Relationship Specialty Start Date End Date Jenifer Chi DO [address] [place] [phone] PCP - General Family Medicine 11/10/23 Sherrill Franklin PharmD [address] [place] [phone] Pharmacist Internal Medicine 11/17/23 documented as of this encounter
--- OUTSIDE RECORDS SUMMARY | 2024-10-18 12:20 | XMS_ITS | Encounter Summary ---
Author Organization [employer] Address [address] [facility] 7t [place] [address] Care Team Providers Care Toggle Press Folder And Feeder Name Role Phone AlonJenifer Primary Care Provider Sherrill Franklin PharmD Unavailable [phone] Encounter Details Date Type Department Care Team (Latest Contact Info) Description 10/17/2024 Travel Social History Tobacco Use Types Packs/Day [...] Description 10/26/2024 9:00 AM EDT Medication Management [facility] 230 [place] [address] Sherrill Franklin PharmD [address] [place] [address] documented as of this encounter Visit Diagnoses Not on filedocumented in this encounter Additional Health Concerns Assessment Noted Time PHQ-9 Depression Total Score: 3 11/10/19 24 9:00 AM EDT documented as of this encounter Care Teams Toggle Press Folder And Feeder Relationship Specialty Start Date End Date Jenifer Chi DO [address] [place] [phone] PCP - General Family Medicine 11/10/23 Sherrill Franklin PharmD [address] [place] [phone] Pharmacist Internal Medicine 11/17/23 documented as of this encounter
--- OUTSIDE RECORDS SUMMARY | 2024-10-18 12:20 | XMS_ITS | Clinical Summary ---
Author Organization 175 [facility] Address [address] [place] [address] Phone Care Team Providers Care Senior Interactive Developer Name Role Phone Alon Jenifer Penny CUMMINGS Primary Care Provider [phone] Allergies No known active allergies Medications acetaminophen (TYLENOL 8 HOUR) 650 mg 8 hr tablet Take 1 tablet (650 mg total) by mouth every 8 (eight) hours if needed for mild pain. Do not crush, chew, or split. Active amLODIPine (NORVASC) 10 mg tablet Take 1 tablet (10 mg total) by mouth 1 (one) time each day. Active aspirin 81 mg EC tablet Take 1 tablet (81 mg total) by mouth 1 (one) time each day. Active atorvastatin (LIPITOR) 80 mg tablet Take 1 tablet (80 mg total) by mouth at bedtime. Active docusate sodium (COLACE) 100 mg capsule Take 1 capsule (100 mg total) by mouth 1 (one) time each day. Active DULoxetine (CYMBALTA) [address] capsule Take 1 capsule (60 mg total) by mouth 1 (one) time each day. Do not crush or chew. Active polycarbophil (FIBERCON) 625 mg tablet Take 1 tablet (625 mg total) by mouth 2 (two) times a day. Active gabapentin (NEURONTIN) 400 mg capsule Take 1 capsule (400 mg total) by mouth at bedtime. Active losartan (Cozaar) 100 mg tablet Take 1 tablet (100 mg total) by mouth 1 (one) time each day. Active meclizine (ANTIVERT) 25 mg tablet Take 1 tablet (25 mg total) by mouth 3 (three) times a day if needed for dizziness. Active metoprolol succinate (TOPROL-XL) 50 mg 24 hr tablet Take 1 tablet (50 mg total) by mouth 1 (one) time each day. Do not crush or chew. Active saccharomyces boulardii (FLORASTOR) 250 mg capsule Take 1 capsule (250 mg total) by mouth 1 (one) time each day. Active empagliflozin-m etformin (Synjardy) 12.5-1,000 mg tablet Take 2 tablets by mouth 1 (one) time each day with breakfast. Active doxycycline (Vibramycin) 100 mg capsule Take 1 capsule (100 mg total) by mouth 2 (two) times a day for 14 days. 14 capsule 5 10/19/19 25 Active amoxicillin-cla vulanate (AUGMENTIN) 875-125 mg per tablet Take 1 tablet by mouth 2 (two) times a day for 7 days. 14 each 5 09/28/19 25 doxycycline (VIBRAMYCIN) 100 mg capsule Take 1 capsule (100 mg total) by mouth 2 (two) times a day for 7 days. Take with at least 8 ounces (large glass) of water, do not lie down for 30 minutes after. Administer 2 hours before or after multivitamins, antacids, or other products containing polyvalent cations (i.e., calcium, iron, magnesium, selenium, zinc). 14 each 5 09/28/19 25 oxyCODONE (ROXICODONE) 5 mg immediate release tablet Take 1 tablet (5 mg total) by mouth every 6 (six) hours if needed for severe pain for up to 3 days. Max Daily Amount: 20 mg 12 each 5 09/24/19 25 Active Problems Problem Noted Date Diagnosed Date Diabetic foot infection ([facility] V24, [facility] V2 8) 09/15/2024 Chronic wound 09/14/2024 Encounters Date Type Department Care Team Description 10/16/2024 9:15 AM EDT Office Visit Orthopedic Surgery - [address] [phone] Brian Evangelista, GIGI Poorly controlled type 2 diabetes mellitus with neuropathy ([facility] V24, [facility] V28) (Primary Dx); PAD (peripheral artery disease) ([facility] V24); Ulcer of toe of right foot, with necrosis of muscle ([facility] V24, [facility] V28) 10/10/2024 8:45 AM EDT Office Visit Orthopedic [place] [address] [phone] Brian Evangelista A, DPM Poorly controlled type 2 diabetes mellitus with neuropathy ([facility] V24, [facility] V28) (Primary Dx); PAD (peripheral artery disease) ([facility] V24); Ulcer of toe of right foot, with fat layer exposed ([facility] V24, [facility] V28) 10/05/2024 Telephone Orthopedic Surgery [facility] [address] [phone] Brain Evangelista, DPM 10/04/2024 11:15 AM EDT Office Visit [facility]opedic [facility] [address] [phone] Brian Evangelista A, DPM Poorly controlled type 2 diabetes mellitus with neuropathy ([facility] V24, [facility] V28) (Primary Dx); PAD (peripheral artery disease) ([facility] V24); Ulcer of toe of right foot, with fat layer exposed ([facility] V24, [facility] V28); Dehiscence of operative wound, initial encounter 09/16/2024 8:00 AM EDT - 09/16/2024 9:15 AM EDT Surgery [facility] Main OR [address] [place] [phone] Brian Evangelista, DPM AMPUTATION TOE 1ST AND 5TH 09/16/2024 7:56 AM EDT Anesthesia Event [facility] OR [address] [place] [phone] Bryson Martinez MD Dasilva, John E, MD 09/14/2024 10:45 AM EDT - 09/20/2024 12:25 PM EDT Hospital Encounter [facility] Medical Surgical Unit [address] [place] [phone] Alfie Acuna MD Flores, Carlos M, MD Santoyo-Pachec o, Omar D, MD Rasul, Yar M, MD Diabetic foot infection ([facility] V24, [facility] V28) (Primary Dx); Chronic wound; Osteomyelitis of foot, right, acute ([facility] V24, [facility] V28) Discharge Disposition: Home-Health Care [facility] 09/10/2024 11:00 AM EDT Office Visit Orthopedic Surgery [facility] [address] [phone] Brian Evangelista, DPM Poorly controlled type 2 diabetes mellitus with neuropathy ([facility] V24, [facility] V28) (Primary Dx); PAD (peripheral artery disease) ([facility] V24); Ulcer of toe of right foot, with necrosis of bone ([facility] V24, [facility] V28); Acute osteomyelitis of right ankle or foot ([facility] V24, [facility] V28) 08/30/2024 12:15 PM EDT Consult Vascular Surgery [facility] [address] [facility] [address] [place] [address] Monika Vu MD PAD (peripheral artery disease) ([facility] [place]24) 08/15/2024 10:00 AM EDT Office Visit Orthopedic Surgery [facility] [address] [phone] Brian Evangelista DPM Poorly controlled type 2 diabetes mellitus with neuropathy ([facility] V24, [facility] V28) (Primary Dx); PAD (peripheral artery disease) ([facility] V24); Ulcer of toe of right foot, with necrosis of bone ([facility] V24, [facility] V28); Ulcer of toe of right foot, with necrosis of muscle ([facility] V24, [facility] V28); Cellulitis of right foot 08/08/2024 9:30 AM EDT Office Visit Orthopedic Surgery [facility] [address] [phone] Brian Evangelista DPM Poorly controlled type 2 diabetes mellitus with neuropathy ([facility] V24, [facility] V28) (Primary Dx); Cellulitis of right foot; PAD (peripheral artery disease) ([facility] V24); Ulcer of toe of right foot, with necrosis of bone ([facility] V24, [facility] V28); Ulcer of toe of right foot, with necrosis of muscle ([facility] V24, [facility] V28) from Last 3 Months Social History Tobacco Use Types Packs/Day Years Used Date Smoking Tobacco: Never Smokeless Tobacco: Never Tobacco Cessation:Counseling Given: Not Answered Food Risk Answer Date Recorded Within the [...] on file Sexual Orientation Not on file Obstetrics History Last Filed Vital Signs Vital Sign Reading Time Taken Comments Blood Pressure 138/77 09/20/2024 7:21 AM EDT Pulse 77 09/20/2024 7:21 AM EDT Temperature 36.3 C (97.3 F) 09/20/2024 7:21 AM EDT Respiratory Rate 17 09/20/2024 7:21 AM EDT Oxygen Saturation 98% 09/20/2024 7:21 AM EDT Inhaled Oxygen Concentration - - Weight 75.8 kg (167 lb 3.2 oz) 09/14/2024 10:40 AM EDT Height 162.6 cm (5' 4 ) 09/14/2024 10:40 AM EDT Body Mass Index 28.7 09/14/2024 10:40 AM EDT Plan of Treatment Upcoming Encounters Date Type Department Care Team (Late st Contact Info) Description 10/23/2024 9:00 AM EDT Office Visit Orthopedic Surgery - [place] [address] [phone] Brian Evangelista DPM [address] [place] [address] 11/02/2024 7:00 AM EDT Ancillary Procedure [facility] 101 [address] [facility] [address] [place] [phone] 12/05/2024 8:30 AM EDT Office Visit Vascular Surgery - [place] [address] [facility] [address] [place] [phone] Monika Vu MD [address] [place] [phone] Health Maintenance Due Date Last Done Comments Breast Cancer Screening 1950 Diabetes: Annual Retina Eye Exam 05/30/1961 Depression Screening 02/15/2024 Colorectal Cancer Screening: Colonoscopy 06/23/2024 Medicare Annual Wellness Visit 06/23/2024 Osteoporosis Screening (Bone Density Screening) 06/23/2024 Diabetes: Annual Urine Albumin-Creatinine Ratio (uACR) 07/13/2024 Zoster Vaccines (2 of 2) 07/16/2024 05/21/2024 COVID-19 Vaccine (2 - season) 2024 11/10/2023 Influenza Vaccine (#1) 2024 11/10/2023 Diabetes: Blood Sugar Control Test (HGBA1C) 03/17/2025 09/14/2024, 09/06/2024, 06/08/2024, Additional history exists Diabetes: Annual Foot Exam 09/14/2025 09/14/2024 Social Influencers of Health Screening 09/16/2025 09/16/2024 Diabetes: Annual GFR (Glomerular Filtration Rate) 09/20/2025 09/20/2024, 09/17/2024, 09/16/2024, Additional history exists Falls Risk Assessment 09/20/2025 09/20/2024 Hypertension/CHF/CAD Annual BMP Blood Test 09/20/2025 09/20/2024, 09/17/2024, 09/16/2024, Additional history exists Cholesterol Screening (Lipid Panel) 05/21/2029 05/21/2024 DTaP,Tdap,and Td Vaccines (2 - Td or Tdap) 08/06/2034 08/06/2024 Hepatitis C Screening Completed 11/10/2023 Pneumococcal Vaccine: 50+ Years Completed 11/10/2023 RSV Immunization Adult Patients Completed 12/15/2023 Hepatitis B Vaccines Completed 05/21/2024, [...] on patient's age to complete this topic MMR Vaccines Aged Out No longer eligi ble based on patient's age to complete this topic Meningococcal ACWY Vaccine Aged Out N o longer eligible based on patient's age to complete this topic Meningococcal B Vaccine Aged Out No l onger eligible based on patient's age to complete this topic RSV Immunization Patients Under 20 months Aged Out No longer eligible based on patient's age to complete this topic Varicella Vaccines Aged Out No longer eligible based on patient's age to complete this topic Procedures Procedure Name Priority Date/Time Associated Diagnosis Comments XR FOOT 3+ VIEWS RIGHT Routine 10/04/2024 11:35 AM EDT Post-operative state POCT GLUCOSE BLOOD Routine 09/20/2024 11 :41 AM EDT POCT GLUCOSE BLOOD Routine 09/20/2024 7: 22 AM EDT CBC WITH AUTO DIFFERENTIAL Timed 09/20/2024 5:46 AM EDT BASIC METABOLIC PANEL Routine 09/20/2024 5:46 AM EDT CBC AND DIFFERENTIAL Timed 09/20/2024 5:46 AM EDT POCT GLUCOSE BLOOD Routine 09/19/2024 8: 00 PM EDT POCT GLUCOSE BLOOD Routine 09/19/2024 4: 13 PM EDT POCT GLUCOSE BLOOD Routine 09/19/2024 10 :55 AM EDT POCT GLUCOSE BLOOD Routine 09/19/2024 8: 00 AM EDT POCT GLUCOSE BLOOD Routine 09/18/2024 8: 23 PM EDT POCT GLUCOSE BLOOD Routine 09/18/2024 4: 43 PM EDT POCT GLUCOSE BLOOD Routine 09/18/2024 11 :01 AM EDT POCT GLUCOSE BLOOD Routine 09/18/2024 8: 06 AM EDT POCT GLUCOSE BLOOD Routine 09/17/2024 7: 52 PM EDT POCT GLUCOSE BLOOD Routine 09/17/2024 4: 19 PM EDT VANCOMYCIN, TROUGH Timed 09/17/2024 1: 18 PM EDT POCT GLUCOSE BLOOD Routine 09/17/2024 11 :10 AM EDT POCT GLUCOSE BLOOD Routine 09/17/2024 7: 43 AM EDT CBC WITH AUTO DIFFERENTIAL Routine 09/17/2024 5:08 AM EDT PHOSPHORUS Routine 09/17/2024 5:08 AM EDT MAGNESIUM Routine 09/17/2024 5:08 AM EDT CBC AND DIFFERENTIAL Routine 09/17/2024 5:08 AM EDT BASIC METABOLIC PANEL Routine 09/17/2024 5:08 AM EDT POCT GLUCOSE BLOOD Routine 09/16/2024 8: 29 PM EDT POCT GLUCOSE BLOOD Routine 09/16/2024 3: 58 PM EDT VANCOMYCIN, TROUGH Timed 09/16/2024 12 :39 PM EDT POCT GLUCOSE BLOOD Routine 09/16/2024 11 :29 AM EDT CREATININE, SERUM Routine 09/16/2024 11: 20 AM EDT CULTURE ANAEROBIC WITH GRAM STAIN Routine 09/16/2024 8:24 AM EDT Osteomyelitis of foot, right, acute (CMS/HCC V24, CMS/HCC V28) CULTURE ANAEROBIC WITH GRAM STAIN Routine 09/16/2024 8:24 AM EDT Osteomyelitis of foot, right, acute (CMS/HCC V24, CMS/HCC V28) CULTURE WOUND DEEP Routine 09/16/2024 8: 24 AM EDT Osteomyelitis of foot, right, acute (CMS/HCC V24, CMS/HCC V28) CULTURE WOUND DEEP Routine 09/16/2024 8: 24 AM EDT Osteomyelitis of foot, right, acute (CMS/HCC V24, CMS/HCC V28) TISSUE EXAM Routine 09/16/2024 8:17 AM EDT Osteomyelitis of foot, right, acute (CMS/HCC V24, CMS/HCC V28) AMPUTATION TOE 09/16/2024 8:00 AM EDT Osteomyelitis of foot, right, acute (CMS/HCC V24, CMS/HCC V28) POCT GLUCOSE BLOOD Routine 09/16/2024 7: 17 AM EDT POCT GLUCOSE BLOOD Routine 09/15/2024 7: 41 PM EDT POCT GLUCOSE BLOOD Routine 09/15/2024 4: 06 PM EDT POCT GLUCOSE BLOOD Routine 09/15/2024 11 :04 AM EDT CBC WITH AUTO DIFFERENTIAL Routine 09/15/2024 8:15 AM EDT CBC AND DIFFERENTIAL Routine 09/15/2024 8:15 AM EDT SST - GOLD Routine 09/15/2024 8:07 AM EDT EXTRA TUBES Routine 09/15/2024 8:07 AM EDT POCT GLUCOSE BLOOD Routine 09/15/2024 7: 36 AM EDT ECG 12-LEAD Routine 09/15/2024 7:31 AM EDT LACTATE STAT 09/15/2024 7:05 AM EDT MAGNESIUM Routine 09/15/2024 5:20 AM EDT BASIC METABOLIC PANEL Routine 09/15/2024 5:20 AM EDT POCT GLUCOSE BLOOD Routine 09/14/2024 9: 27 PM EDT POCT GLUCOSE BLOOD Routine 09/14/2024 5: 08 PM EDT LACTATE, WITH REFLEX Timed 09/14/2024 1:42 PM EDT C-REACTIVE PROTEIN Add-On 09/14/2024 12 :36 PM EDT BASIC METABOLIC PANEL STAT 09/14/2024 12:36 PM EDT HEMOGLOBIN A1C Add-On 09/14/2024 12:30 PM EDT LAVENDER - EDTA Routine 09/14/2024 12:30 PM EDT EXTRA TUBES Routine 09/14/2024 12:30 PM EDT XR FOOT 3+ VIEWS RIGHT STAT 09/14/2024 12:11 PM EDT LACTATE, WITH REFLEX STAT 09/14/2024 11:32 AM EDT CBC WITH AUTO DIFFERENTIAL STAT 09/14/2024 11:32 AM EDT CBC AND DIFFERENTIAL STAT 09/14/2024 11:32 AM EDT CULTURE BLOOD STAT 09/14/2024 11:32 AM EDT CULTURE BLOOD STAT 09/14/2024 11:32 AM EDT TISSUE EXAM Routine 08/15/2024 11:33 AM EDT Ulcer of toe of right foot, with necrosis of bone (CMS/HCC V24, CMS/[facility] V28) CULTURE WOUND DEEP Routine 08/15/2024 11 :23 AM EDT Ulcer of toe of right foot, with necrosis of bone (CMS/[facility] V24, [facility] V28) from Last 3 Months Results * XR Foot 3+ Views Right (10/04/2024 11:35 AM EDT) Only the most recent of2 resultswithin the time period is included. Anatomical Region Laterality Modality Lower Extremities, Foot Right Computed Radiography Narrative 10/04/2024 12:07 PM EDT Right foot 3 views:Recent amputation to the 1st and 5th toe. No subcutaneous gas us Brian Evangelista DPM IMG XR PROCEDURES Edited Re sult - Final * (ABNORMAL) POCT Glucose, blood (09/20/2024 11:41 AM EDT) Only the most recent of24 resultswithin the time period is included. Glucose POCT 236(H) 70 - 100 mg/dL 09/20/2024 11:42 AM EDT [facility] Blood Capillary blood specimen / Unknown 09/20/2024 11:41 AM EDT 09/20/2024 11:45 AM EDT us Jesús Pacheco MD LAB POINT OF CARE TE ST DOCKED DEVICE UNSOLICITED RESULTS Final Result [facility] [address] [place] [address], * (ABNORMAL) CBC auto differential (09/20/2024 5:46 AM EDT) Only the most recent of4 resultswithin the time period is included. WBC 9.3 4.8 - 10.8 K/mcL LAB HEMETOLOGY METHOD 09/20/2024 7:10 AM EDT [facility] RBC 4.10 3.80 - 4.80 M/mcL LAB HEMETOLOGY METHOD 09/20/2024 7:10 AM EDT [facility] Hemoglobin 11.3(L) 11.5 - 16.0 g/dL LAB HEMETOLOGY METHOD 09/20/2024 7:10 AM EDT [facility] Hematocrit 36.3 35.0 - 47.0 % LAB HEMETOLOGY METHOD 09/20/2024 7:10 AM EDT [facility] MCV 89.0 79.0 - 98.0 FL LAB HEMETOLOGY METHOD 09/20/2024 7:10 AM EDT [facility] MCH 27.7 27.0 - 32.0 pcg LAB HEMETOLOGY METHOD 09/20/2024 7:10 AM EDT [facility] MCHC 31.1(L) 32.0 - 37.0 g/dL LAB HEMETOLOGY METHOD 09/20/2024 7:10 AM EDT [facility] RDW 13.7 11.0 - 15.0 % LAB HEMETOLOGY METHOD 09/20[facility]2024 [facility] 249 130 - 400 K/mcL LAB HEMETOLOGY METHOD 09/20/2024 7:10 AM EDT [facility] MPV 9.8 7.0 - 11.0 FL LAB HEMETOLOGY METHOD 09/20/2024 7:10 AM [facility] NRBC 0.0 <1.0 % LAB HEMETOLOGY METHOD 09/20/2024 7:10 AM [facility] NRBC Absolute 0.00 <0.10 K/mcL LAB HEMETOLOGY METHOD 09/20/2024 7:10 AM [facility] Neutrophils Relative 62.2 % LAB HEMETOLOGY METHOD 09/20/2024 7:10 AM [facility] Lymphocytes Relative 22.7 % LAB HEMETOLOGY METHOD 09/20/2024 7:10 AM [facility] Monocytes Relative 7.6 % LAB HEMETOLOGY METHOD 09/20/2024 7:10 AM [facility] Eosinophils Relative 6.6 % LAB HEMETOLOGY METHOD 09/20/2024 7:10 AM [facility] Basophils Relative 0.6 % LAB HEMETOLOGY METHOD 09/20/2024 7:10 AM [facility] Immature Granulocytes Relative 0.3 % LAB HEMETOLOGY METHOD 09/20/2024 7:10 AM [facility] Neutrophils Absolute 5.80 1.50 - 7.00 K/mcL LAB HEMETOLOGY METHOD 09/20/2024 7:10 AM [facility] Lymphocytes Absolute 2.12 1.00 - 5.00 K/mcL LAB HEMETOLOGY METHOD 09/20/2024 7:10 AM [facility] Monocytes Absolute 0.71 0.20 - 1.00 K/mcL LAB HEMETOLOGY METHOD 09/20/2024 7:10 AM [facility] Eosinophils Absolute 0.62(H) 0.00 - 0.50 K/mcL LAB HEMETOLOGY METHOD 09/20/2024 7:10 AM EDT [facility] Basophils Absolute 0.06 0.00 - 0.20 K/mcL LAB HEMETOLOGY METHOD 09/20/2024 7:10 AM EDT [facility] Immature Granulocytes Absolute 0.03 0.00 - 0.03 K/mcL LAB HEMETOLOGY METHOD 09/20/2024 7:10 AM EDT [facility] Blood Blood sample taken from central line / Unknown Venipuncture / Unknown 09/20/2024 5:46 AM EDT 09/20/2024 6:46 AM EDT us Jesús Pacheco MD LAB BLOOD ORDERABLES Final Resul t [facility] [address] [place] [address], [place] [phone] * (ABNORMAL) Basic metabolic panel (09/20/2024 5:46 AM EDT) Only the most recent of4 resultswithin the time period is included. Sodium 139 133 - 145 mmol/L LAB CHEMISTRY METHOD 09/20/2024 7:36 AM [facility] Potassium 4.0 3.5 - 5.5 mmol/L LAB CHEMISTRY METHOD 09/20/2024 7:36 AM [facility] Chloride 103 96 - 110 mmol/L LAB CHEMISTRY METHOD 09/20/2024 7:36 AM [facility] CO2 33(H) 21 - 32 mmol/L LAB CHEMISTRY METHOD 09/20/2024 7:36 AM [facility] Anion Gap 3 3 - 11 LAB CHEMISTRY METHOD 09/20/2024 7:36 AM [facility] Glucose 129(H) 70 - 100 mg/dL LAB CHEMISTRY METHOD 09/20/2024 7:36 AM [facility] BUN 14 5 - 25 mg/dL LAB CHEMISTRY METHOD 09/20/2024 7:36 AM EDT [facility] Creatinine 1.00 0.50 - 1.10 mg/dL LAB CHEMISTRY METHOD 09/20/2024 7:36 AM EDT [facility] eGFR 60 >=60 mL/min/1. 73m2 LAB CHEMISTRY METHOD 09/20/2024 7:36 AM EDT [facility] Comment:Calculation based on the Chronic Kidney Disease Epidemiology Collaboration (CKD-EPI) equation refit without adjustment for race. BUN/Creatinine Ratio 14.0 LAB CHEMISTRY METHOD 09/20/2024 7:36 AM EDT [facility] Calcium 9.0 8.5 - 10.5 mg/dL LAB CHEMISTRY METHOD 09/20/2024 7:36 AM EDT [facility] Blood Blood sample taken from central line / Unknown Venipuncture / Unknown 09/20/2024 5:46 AM EDT 09/20/2024 6:45 AM EDT us Jesús Pacheco MD LAB BLOOD ORDERABLES Final Resul t [facility] [address] [place] [address], [place] [phone] * Vancomycin, trough Please draw one hour prior to vanco dose. (09/17/2024 1:18 PM EDT) Only the most recent of2 resultswithin the time period is included. Vancomycin Trough 14.1 10.0 - 20.0 mcg/mL LAB CHEMISTRY METHOD 09/17/2024 2:05 PM EDT [facility] Blood Venous blood specimen / Unknown Venipuncture / Unknown 09/17/2024 1:18 PM EDT 09/17/2024 1:23 PM EDT us Jenaro Reilly MD LAB BLOOD ORDERABLES F inal Result [facility] [address] [place] [address], [place] [phone] * Phosphorus (09/17/2024 5:08 AM EDT) Phosphorus 4.0 2.5 - 4.5 mg/dL LAB CHEMISTRY METHOD 09/17/2024 6:49 AM EDT [facility] Blood Venous blood specimen / Unknown Venipuncture / Unknown 09/17/2024 5:08 AM EDT 09/17/2024 6:11 AM EDT us Jenaro Reilly MD LAB BLOOD ORDERABLES F inal Result Performing Organization Address [facility]/ZIP Co de Phone Number [facility] [address] [place] [address], [place] [phone] * (ABNORMAL) Magnesium (09/17/2024 5:08 AM EDT) Only the most recent of2 resultswithin the time period is included. [facility] Magnesium 1.7(L) 1.9 - 2.6 mg/dL LAB CHEMISTRY METHOD 09/17/2024 6:49 AM EDT [facility] Blood Venous blood specimen / Unknown Venipuncture / Unknown 09/17/2024 5:08 AM EDT 09/17/2024 6:11 AM EDT us Jenaro Reilly MD LAB BLOOD ORDERABLES F inal Result Performing Organization Address City/[facility]/ZIP Co de Phone Number [facility] [address] [place] [address], [place] [phone] * (ABNORMAL) Creatinine serum (09/16/2024 11:20 AM EDT) Creatinine 1.13(H) 0.50 - 1.10 mg/dL LAB CHEMISTRY METHOD 09/16/2024 11:50 AM EDT [facility] eGFR 51(L) >=60 mL/min/1. 73m2 LAB CHEMISTRY METHOD 09/16/2024 11:50 AM EDT [facility] Comment:Calculation based on the Chronic Kidney Disease Epidemiology Collaboration (CKD-EPI) equation refit without adjustment for race. Blood Venous blood specimen / Unknown Venipuncture / Unknown 09/16/2024 11:20 AM EDT 09/16/2024 11:25 AM EDT Jenaro Reilly MD LAB BLOOD ORDERABLES F inal Result Performing Organization Address [facility]/ZIP Co de Phone Number [facility] [address] [place] [address], * Culture anaerobic with gram stain (09/16/2024 8:24 AM EDT) Only the most recent of2 resultswithin the time period is included. Culture, Anaerobic No Growth of Anaerobes. 09/21/2024 7:39 AM EDT [facility] Gram Stain Result Refer to Aerobic culture for gram stain results. 09/21/2024 7:39 AM EDT [facility] Swab Structure of toe of right foot / Unknown 09/16/2024 8:24 AM EDT 09/16/2024 8:39 AM EDT Brian Evangelista DPM LAB MICROBIOLOGY - GENERAL ORDERABLES Final Result [facility] [address] [place] [address], * (ABNORMAL) Culture wound deep (09/16/2024 8:24 AM EDT) Only the most recent of3 resultswithin the time period is included. Culture, Wound Methicillin-Sensiti ve Staphylococcus aureus(A) MATEO 09/19/2024 10:06 AM EDT [facility] Comment: Negative for PBP2a - indicates susceptible to Oxacillin The organism value for this result has been updated. These results have been appended to the previously preliminary verified report. Edited result: Previously reported as Staphylococcus aureus on 09/17/2024 at 1054 EDT. Gram Stain Result No epithelial cells seen 09/19/2024 10:06 AM EDT [facility] Gram Stain Result Many Polymorphonuclear leukocytes 09/19/2024 10:06 AM EDT [facility] Gram Stain Result No organisms seen 09/19/2024 10:06 AM EDT [facility] Swab Structure of toe of right foot / Unknown 09/16/2024 8:24 AM EDT 09/16/2024 8:39 AM EDT Narrative [facility] - 09/19/2024 10:06 AM EDT Sparse normal skin eloy present Organism Antibiotic Method Susceptibility Methicillin-Sensitive Staphylococcus aureus Benzylpenicillin MATEO >=0.5 ug/ml: Resistant Methicillin-Sensitive Staphylococcus aureus Oxacillin MATEO 0.5 ug/ml: Susceptible Methicillin-Sensitive Staphylococcus aureus Gentamicin MATEO <=0.5 ug/ml: Susceptible Methicillin-Sensitive Staphylococcus aureus Ciprofloxacin MATEO <=0.5 ug/ml: Susceptible Methicillin-Sensitive Staphylococcus aureus Levofloxacin MATEO <=0.12 ug/ml: Susceptible Methicillin-Sensitive Staphylococcus aureus Moxifloxacin MATEO <=0.25 ug/ml: Susceptible Methicillin-Sensitive Staphylococcus aureus Erythromycin MATEO <=0.25 ug/ml: Susceptible Methicillin-Sensitive Staphylococcus aureus Clindamycin MATEO <=0.25 ug/ml: Susceptible Methicillin-Sensitive Staphylococcus aureus Quinupristin/Dalfopristin MATEO 0.5 ug/ml: Susceptible Methicillin-Sensitive Staphylococcus aureus Linezolid MATEO 2 ug/ml: Susceptible Methicillin-Sensitive Staphylococcus aureus Vancomycin MATEO <=0.5 ug/ml: Susceptible Methicillin-Sensitive Staphylococcus aureus Tetracycline MATEO <=1 ug/ml: Susceptible Methicillin-Sensitive Staphylococcus aureus Rifampin MATEO <=0.5 ug/ml: Susceptible Methicillin-Sensitive Staphylococcus aureus Trimethoprim/Sulfamethoxazo le MATEO <=10 ug/ml: Susceptible Brian Evangelista DPM LAB MICROBIOLOGY - GENERAL ORDERABLES Final Result [facility] [address] [place] [address], * Tissue exam (09/16/2024 8:17 AM EDT) Only the most recent of2 resultswithin the time period is included. Final Diagnosis A. Right, 1st Toe-amputation: -VIABLE APPEARING BONE B. Right, 5th Toe- clean margin: -VIABLE APPEARING BONE 09/19/2024 12:38 PM EDT [facility] Gross Description A. Toe, Right, 1st Toe - clean margin: Labeled 1st toe, toe R . Received in formalin is a 3.2 x 2.9 x 2.2 cm digit with 1.1 cm of exposed bone. There is a 1.1 x 0.9 x 0.2 cm kent-yellow unguis with an adjacent, superior, circular 0.8 x 0.6 kent-brown ulcer, located 1.3 cm from the skin margin and 2.2 cm from the bony margin. The bony margin is inked black. The cut surfaces show hard to brittle yellow bone. A premium service representative longitudinal section is submitted in one cassette, one piece, to include ulcer, unguis, skin, and underlying bone, following decalcification B. Toe, Right, 5th Toe- clean margin: Labeled 5th Toe, Toe R . Received in formalin is a 1.8 x 1.1 x 0.9 cm kent-brown, hard to brittle fragment of bone and attached soft tissue. The smooth bony margin is inked red, removed and submitted en face, in one cassette, one piece, following decalcification. 09/19/2024 12:38 PM EDT [facility] Disclaimer Unless otherwise specified, all tissue is 10% NB formalin fixed and paraffin embedded. 09/19/2024 12:38 PM T [facility] Tissue Structure of toe of right foot / Unknown 09/16/2024 8:17 AM EDT 09/17/2024 7:36 AM EDT Tissue specimen (specimen) Structure of toe of right foot / Unknown 09/16/2024 8:21 AM EDT 09/17/2024 7:36 AM EDT Brian Evangelista DPKena LAB PATHOLOGY ORDERABLES Fi nal Result [facility] [address] [place] [address], [place] [phone] * SST tube (09/15/2024 8:07 AM EDT) Pathologist [facility] Extra Tube Hold for add-ons. 09/15/2024 10:01 AM EDT [facility] Comment:Auto resulted. Blood Venous blood specimen / Unknown 09/15/2024 8:07 AM EDT 09/15/2024 8:31 AM EDT Jenaro Reilly MD LAB BLOOD ORDERABLES F inal Result Performing Organization Address City/[facility]/ZIP Co de Phone Number [facility] [address] [place] [address], [place] [phone] * ECG 12 lead (09/15/2024 7:31 AM EDT) Ventricular Rate ECG 95 BPM GEMUSE Atrial Rate 95 BPM GEMUSE P-R Interval 124 ms GEMUSE QRS Duration 72 ms GEMUSE Q-T Interval 374 ms GEMUSE QTc 469 ms GEMUSE P Wave Rhododendron 30 degrees GEMUSE R Rhododendron 14 degrees GEMUSE T Rhododendron 74 degrees GEMUSE ECG Interpretation Normal sinus rhythm Normal ECG No previous ECGs available Confirmed by MD Luis Alberto, Panchito ([id number]) on 09/15/2024 9:58:05 PM GEMUSE 09/15/2024 7:31 AM EDT 09/15/2024 9:58 PM EDT Jonathan Christina MD ECG ORDERABLES Final Result Performing Organization Address [facility]/ZIP Co de Phone Number GEMUSE * Lactate (09/15/2024 7:05 AM EDT) Lactate 1.6 0.4 - 2.0 mmol/L LAB CHEMISTRY METHOD 09/15/2024 7:57 AM EDT [facility] Blood Venous blood specimen / Unknown Venipuncture / Unknown 09/15/2024 7:05 AM EDT 09/15/2024 7:33 AM EDT Jonathan Christina MD LAB BLOOD ORDERABLES Final Re sult Performing Organization Address [facility] Co de Phone Number [facility] [address] [place] [address], [place] [phone] * (ABNORMAL) Lactate, with reflex (09/14/2024 1:42 PM EDT) Only the most recent of2 resultswithin the time period is included. LACTIC ACID 3.4(HH) 0.4 - 2.0 mmol/L LAB CHEMISTRY METHOD 09/14/2024 2:28 PM EDT [facility] Blood Venous blood specimen / Unknown Venipuncture / Unknown 09/14/2024 1:42 PM EDT 09/14/2024 1:58 PM EDT Alfie Acuna MD LAB BLOOD ORDERABLES Final Resu lt Performing Organization Address [facility]/ZIP Co de Phone Number [facility] [address] [place] [address], [place] [phone] * (ABNORMAL) C-reactive protein (09/14/2024 12:36 PM EDT) C-Reactive Protein 0.77(H) <=0.50 mg/dL LAB CHEMISTRY METHOD 09/14/2024 2:45 PM EDT [facility] Blood Venous blood specimen / Unknown Venipuncture / Unknown 09/14/2024 12:36 PM EDT 09/14/2024 12:43 PM EDT Jonathan Christina MD LAB BLOOD ORDERABLES Final Re sult Performing Organization Address City/[facility]/ZIP Co de Phone Number [facility] [address] [place] [address], [place] [phone] * Lavender tube (09/14/2024 12:30 PM EDT) Pathologist [facility] Extra Tube Hold for add-ons. 09/14/2024 2:01 PM EDT [facility] Comment:Auto resulted. Blood Venous blood specimen / Unknown 09/14/2024 12:30 PM EDT 09/14/2024 12:44 PM EDT Alfie Acuna MD LAB BLOOD ORDERABLES Final Resu lt Performing Organization Address [facility] Co de Phone Number [facility] [address] [place] [address], [place] [phone] * (ABNORMAL) Hemoglobin A1c (09/14/2024 12:30 PM EDT) Pathologist [facility] Hemoglobin A1C 6.7(H) <6.5 % LAB CHEMISTRY METHOD 09/14/2024 11:02 PM EDT [facility] Mean Bld Glu Estim. 146 mg/dL LAB CHEMISTRY METHOD 09/14/2024 11:02 PM EDT [facility] Blood Venous blood specimen / Unknown 09/14/2024 12:30 PM EDT 09/14/2024 12:44 PM EDT us Jonathan Christina MD LAB BLOOD ORDERABLES Final Re sult Performing Organization Address City/[facility]/ZIP Co de Phone Number [facility] [address] [place] [address], [place] [phone] * Culture blood (09/14/2024 11:32 AM EDT) Only the most recent of2 resultswithin the time period is included. Culture, Blood No growth at 5 days 09/19/2024 1:01 PM EDT [facility] Blood Venous blood specimen / Unknown Venipuncture / Unknown 09/14/2024 11:32 AM EDT 09/14/2024 11:48 AM EDT Alfie Acuna MD LAB MICROBIOLOGY - GENERAL HAROLDO BOWMAN Final Result [facility] ([facility]) [facility] [address] [place] [address], [place] [phone] from Last 3 Months Insurance MEDICARE MEDICAID [place] Advance Directives * Full Code - Default (Latest Code Status on File) Date Activated Date Inactivated Comments 09/14/2024 2:45 PM 09/20/2024 2:25 PM This is order is used when code status has not been discussed with the patient, or code status is otherwise unknown/unconfirmed To update the patient's code status, place a code status order. Do not modify or discontinue any currently active code status orders. Care Teams Senior Interactive Developer Relationship Specialty Start Date End Date Jenifer Chi DO [address] [place] [address] PCP - General Family Medicine 08/08/24
--- OUTSIDE RECORDS SUMMARY | 2024-10-18 12:20 | XMS_ITS | Encounter Summary ---
Author Organization [employer] Address [address] [place] [address] [address] [place] [address] Care Team Providers Care Pathology Specialist Name Role Phone Jenifer Chi DO Primary Care Provider Sherrill Franklin PharmD Unavailable Reason for Visit * Reason Onset Date Comments Nurse Triage 10/16/2024 Encounter Details Date Type Department Care Team (Late st Contact Info) Description 10/16/2024 Telephone [facility] MEDICINE [address] [place], [place] [phone] Jenifer Chi DO [address] [place], [place] [phone] Nurse Triage Social History Tobacco Use Types Packs/Day Years [...] AM EDT documented as of this encounter Miscellaneous Notes * Telephone Encounter - Mellissa Callejas LPN - 10/16/2024 12:21 PM EDT Triage call returned with BLS #[id number] Veronica Patient with Daughter on phone. Reports daily concerns of dizziness. Worse when putting head down. Has been on Antivert in the past and it does nothing patient reports noise in both ears no earpain reported no fever. BG this morning 118 and was seen by Social Media Analyst today who reported that surgical sites are healing well and look good per Daughter. Patient without nausea or vomiting not on pain medications. Disposition reviewed and patient in agreement with plan. Tactical Intelligence Officer PCP appts and requests to see provider she last saw. ASK/Ange JOHNSON tomorrow at 330pm Protocol Used: Dizziness (Adult) Protocol-Based Disposition: Discuss with PCP and Callback by Nurse Today Override (Final) Disposition: See in Office or Video Visit Today or Tomorrow Override Reason: Nurse judgment Positive Triage Question: * Taking a medicine that could cause dizziness (e.g., blood pressure medications, diuretics) * All higher-acuity triage questions were negative Care Advice Discussed: * Drink Fluids * Reasons To Call Back - You pass out (faint) or are too weak to stand - You become worse * Telephone Encounter - Abel Chew - 10/16/2024 10:29 AM EDT Symptom: Dizziness Outcome: Schedule an urgent appointment (within 4 hours) or talk to a nurse or provider soon Reason: Getting worse The caller accepted this outcome. Pt is requesting an apt do discuss the medication that she takes. Pt thinks that there is a medication that is making her dizzy and unstable. Contact pt at [phone] documented in this encounter Plan of Treatment Upcoming Encounters Date Type Department Care Team (Late st Contact Info) Description 10/26/2024 9:00 AM EDT Medication Management [facility] MEDICINE [address] [place] [address] Sherrill Franklin PharmD [address] [place] [phone] documented as of this encounter Visit Diagnoses Not on filedocumented in this encounter Additional Health Concerns Assessment Noted Time PHQ-9 Depression Total Score: 3 11/10/19 24 9:00 AM EDT documented as of this encounter Care Teams Pathology Specialist Relationship Specialty Start Date End Date Jenifer Chi DO [address] [place] [id number] PCP - General Family Medicine 11/10/23 Sherrill Franklin PharmD [address] [place] [phone] Pharmacist Internal Medicine 11/17/23 documented as of this encounter
--- OUTSIDE RECORDS SUMMARY | 2024-10-18 12:20 | XMS_ITS | Clinical Summary ---
Author Organization [employer] Address [address] [facility] [address] [place] [address] Care Team Providers Care Funeral Director'S Assistant Name Role Phone AlonJenifer Primary Care Provider [phone] Sherrill Franklin PharmD Unavailable [phone] Allergies No known active allergies Medications Alcohol Swabs 70 % pads Use to test blood sugar 2 times daily 100 each 11/10/19 Active Blood Glucose Monitoring Suppl ([employer] Carmel Lite) w/Device kit Use to test blood [...] once daily 50 each 01/04/20 24 Active Florastor 250 MG capsule Take 1 [...] DIZZINESS 30 tablet 2 05/25/19 25 Active acetaminophen (Tylenol 8 Hour) 650 MG ER tablet Take 1 tablet (650 mg) by mouth every 8 (eight) hours if needed for mild pain. Do not crush, chew, or split. 60 tablet 2 06/09/19 25 026 Active polyethylene glycol, PEG, 3350 (Glycolax) 17 GM/SCOOP powder TAKE 17 GM MIXED IN 8 OUNCES OF WATER, COFFEE OR TEA ONCE DAILY 05/22/19 25 Active DULoxetine (Cymbalta) [address] capsule TAKE 1 CAPSULE BY MOUTH EVERY MORNING DO NOT BREAK, CRUSH, DISSOLVE OR CHEW 30 capsule 3 07/25/19 25 Active gabapentin (Neurontin) 400 MG capsule TAKE 1 CAPSULE BY MOUTH EVERY EVENING 30 capsule 3 07/25/19 25 Active semaglutide (Ozempic, 1 MG/DOSE,) 4 MG/3ML solution pen-injectorInd ications:Type 2 Diabetes Mellitus Inject 1 mg under the skin 1 (one) time per week. 3 mL 09/07/19 25 Active metFORMIN (Glucophage) 1000 MG tablet Take 1 tablet (1,000 mg) by mouth with breakfast and with evening meal. 180 tablet 3 09/07/19 25 026 Active Diclofenac Sodium 1 % gel Apply 2 g topically if needed in the morning, at noon, in the evening, and at bedtime (pain). 150 g 3 06/09/19 25 025 Discontinued(Me d list cleanup (will not trigger notification to [...] Encounters Date Type Department Care Team Description 10/17/2024 3:30 PM EDT Office Visit [facility] MEDICINE [address] [place] [phone] Keena Pelaez ANP Orthostatic hypertension (Primary Dx); Palpitations; Diabetic polyneuropathy associated with type 2 diabetes mellitus (CMS/HCC); Dizziness 10/17/2024 Travel 10/16/2024 Telephone [facility] MEDICINE [address] [place] [phone] Jenifer Chi DO Nurse Triage 10/04/2024 2:30 PM EDT Office Visit [facility] MEDICINE [address] [place] [phone] Keena Pelaez ANP Diabetic polyneuropathy associated with type 2 diabetes mellitus (CMS/HCC) (Primary Dx); Hospital discharge follow-up; Status post amputation of lesser toe of right foot (CMS/HCC) 10/04/2024 Travel 10/03/2024 Telephone [facility] WALK-IN CENTER [address] [place] [address] [place] [address] Shelby Fong, [place] 09/27/2024 Telephone [facility] MEDICINE [address] [place] [address] Jenifer Chi DO verbla orders 09/25/2024 Telephone [facility] MEDICINE [address] [place] [phone] Jenifer Chi DO Verbal order 09/24/2024 Telephone [facility] MEDICINE [address] [place] [phone] Jenifer Chi DO FYI 09/21/2024 Patient Outreach [facility] MED & PEDS [address] [place] [address] Jenifer Chi DO Transition Of Care (Tcm) (HDF unscheduled) 09/12/2024 Orders Only [facility] MEDICINE [address] [place] [phone] Jenifer Chi DO Breast cancer screening by mammogram (Primary Dx) 09/10/2024 Telephone [facility] OPTOMETRY [address] [place] [address] Lakesha Weston, OD 09/06/2024 Telephone [facility] MEDICINE [address] [place] [address] Jenifer Chi DO 09/06/2024 Telephone [facility] MEDICINE [address] [place] [phone] Sherrill Franklin, LynD Care Coordination 09/06/2024 Travel 08/09/[address] [address] Jenifer Chi DO Med B form 08/06/2024 Travel 07/22/2024 Refill [facility] MEDICINE [address] [place] [phone] Jenifer Chi DO from Last 3 Months Immunizations Immunization Administration Dates Next Due Hep B, adult 05/21/2024,12/15/2023,11/17/2023 Influenza, High Dose Seasona l, Preservative Free 11/10/2023 Pfizer Covid-19 Vaccine 12+ 11/10/2023 Pneumococcal Conjugate PCV 20 11/10/2023 RSV Bivalent 12/15/2023 Tdap 08/06/2024 Zoster, Recombinant 05/21/2024 Family History Medical History [...] the past 12 months, has t he [employer], gas, oil or water company threatened to [...] Mass Index 27.77 10/17/2024 3:14 PM EDT Plan of Treatment Upcoming Encounters Date Type Department Care Team (Late st Contact Info) Description 10/26/2024 9:00 AM EDT Medication Management [facility] MEDICINE [address] [place] [address] Sherrill Franklin, PharmD [address] [place], [place] [phone] Health Maintenance Due Date Last Done Comments CT Colonography 1950 Colonoscopy 1950 Colorectal Cancer Screening 1950 FIT DNA/Cologuard 1950 FIT 1950 FOBT 1950 Sigmoidoscopy 1950 Diabetes: Foot Exam 05/30/1961 Alcohol/Substance Use Screening 1963 Mammogram 1991 Zoster Vaccines (2 of 2) 07/16/2024 05/21/2024 COVID-19 Vaccine ( - season) 2024 11/10/2023 Influenza Vaccine (#1) 2024 11/10/2023 SDOH Screening 11/01/2024 11/02/2023 Depression Screening 11/09/2024 11/10/2023, 11/10/19 24 Diabetes: Urine Protein Screening 11/09/2024 11/10/2023 Eye Exam 03/13/2025 03/13/2024, 02/15, 03/13/2024, Additional history exists Diabetes: Hemoglobin A1C 03/17/2025 025, 09/06/2024, 06/08/2024, Additional history exists Lipid Panel 05/21/2025 05/21/2024, 11/10/2023 Tobacco Screening 10/17/2025 10/17/2024 DTaP/Tdap/Td Vaccines (2 - Td or Tdap) 08/06/2034 [...] Procedure Name Priority Date/Time Associated Diagnosis Comments VASC US CAROTID ARTERY DUPLEX BILATERAL Routine 10/18/2024 11:09 AM EDT Dizziness POCT GLYCATED HEMOGLOBIN, TOTAL Routine 09/06/2024 12:33 PM EDT Type 2 diabetes mellitus with retinopathy of both eyes, without long-term current use of insulin, macular edema presence unspecified, unspecified retinopathy severity (CMS/HCC) LIPID PANEL, STANDARD Routine 05/21/2024 10:24 AM EDT ALBUMIN, RANDOM [...] Recently Relevant to Health Maintenance Results * Vascular US carotid artery duplex bilateral (10/18/2024 11:09 AM EDT) 10/18/2024 11:0 9 AM EDT [facility] IMAGING - 10/18/2024 11:48 AM EDT [place] [address] Ultrasound Report Signed Patient: Yani Stewart MR#: [id number] : 1950 Acct:[id number] Age/Sex: 74 / F ADM Date: 10/18/24 Loc: HO.US Attending Dr: Jenifer Chi DO Ordering Physician: Jenifer Chi DO Date of Service: 10/18/24 Procedure(s): US carotid duplex BI Accession Number(s): [id number] cc: Jenifer Chi DO Reason for Exam: worsening dizziness EXAMINATION: US EXTRACRANIAL CAROTID DUPLEX, BILATERAL CLINICAL INFORMATION: Worsening dizziness. COMPARISON: None available. TECHNIQUE: Real-time ultrasound and Doppler techniques (integrating B-mode 2-D vascular images, Doppler spectral analysis and color-flow Doppler imaging) were utilized to interrogate the extracranial carotid arteries, the vertebral arteries and proximal subclavian arteries bilaterally. The degree of stenosis is determined by criteria similar to NASCET. FINDINGS: Arrhythmia episodes. Right Side: 1. There is small mixed atherosclerotic plaque seen in the bifurcation/proximal ICA region. 2. The common carotid artery PSV proximally is 57 cm/s and distally 42 cm/s. 3. The proximal internal carotid artery velocities are 39 cm/s systolic and 11 cm/s diastolic. 4. The proximal external carotid artery PSV is 158 cm/s. 5. The vertebral artery shows antegrade flow. 6. The subclavian artery waveforms are triphasic.. ICA/CC ratio: 0.69. Left Side: 1. There is moderate to large noncalcified and mixed atherosclerotic plaque seen in the bifurcation/proximal ICA region. 2. The common carotid artery PSV proximally is 82 cm/s and distally 74 cm/s. 3. The proximal internal carotid artery velocities are 50 cm/s systolic and 16 cm/s diastolic. 4. The proximal external carotid artery PSV is 68 cm/s. 5. The vertebral artery shows antegrade flow. 6. The subclavian artery waveforms are triphasic. ICA/CC ratio: 0.60. US/US carotid duplex BI IMPRESSION: 1. RIGHT: Small mixed plaques representing 0-49% stenosis by ultrasound criteria. 2. LEFT: Moderate to large mixed plaques representing 0-49% stenosis by ultrasound criteria. Electronically signed by: Simba Tracey MD 10/18/2024 11:44 AM EDT Dictated By: Simba Toro MD Signed By: <Electronically signed by Simba Fitzgerald MD in OV> 10/18/24 1144 DD/ 1109 TD/TT: 10/18/24 1127 Milk Pickup Truck Driver: Procedure Note Donotuseinterpreter, Image - 10/18/2024 [place] [address] Ultrasound Report Signed Patient: Yani Stewart [facility]#: [id number] : 2Acct:[id number] Age/Sex: 74 / FADM Date: 10/18/24 Loc: HO.US Attending Dr: Jenifer Chi DO Ordering Physician: Jenifer Chi DO Date of Service: 10/18/24 Procedure(s): US carotid duplex BI Accession Number(s): [id number] cc: Jenifer Chi DO Reason for Exam: worsening dizziness EXAMINATION: US EXTRACRANIAL CAROTID DUPLEX, BILATERAL CLINICAL INFORMATION: Worsening dizziness. COMPARISON: None available. TECHNIQUE: Real-time ultrasound and Doppler techniques (integrating B-mode 2-D vascular images, Doppler spectral analysis and color-flow Doppler imaging) were utilized to interrogate the extracranial carotid arteries, the vertebral arteries and proximal subclavian arteries bilaterally. The degree of stenosis is determined by criteria similar to NASCET. FINDINGS: Arrhythmia episodes. Right Side: 1. There is small mixed atherosclerotic plaque seen in the bifurcation/proximal ICA region. 2. The common carotid artery PSV proximally is 57 cm/s and distally 42 cm/s. 3. The proximal internal carotid artery velocities are 39 cm/s systolic and 11 cm/s diastolic. 4. The proximal external carotid artery PSV is 158 cm/s. 5. The vertebral artery shows antegrade flow. 6. The subclavian artery waveforms are triphasic.. ICA/CC ratio: 0.69. Left Side: 1. There is moderate to large noncalcified and mixed atherosclerotic plaque seen in the bifurcation/proximal ICA region. 2. The common carotid artery PSV proximally is 82 cm/s and distally 74 cm/s. 3. The proximal internal carotid artery velocities are 50 cm/s systolic and 16 cm/s diastolic. 4. The proximal external carotid artery PSV is 68 cm/s. 5. The vertebral artery shows antegrade flow. 6. The subclavian artery waveforms are triphasic. ICA/CC ratio: 0.60. US/US carotid duplex BI IMPRESSION: 1. RIGHT: Small mixed plaques representing 0-49% stenosis by ultrasound criteria. 2. LEFT: Moderate to large mixed plaques representing 0-49% stenosis by ultrasound criteria. Electronically signed by: Simba Tracey MD 10/18/2024 11:44 AM EDT Dictated By: Simba Toro MD Signed By: <Electronically signed by Simba Fitzgerald MDin OV> 10/18/24 1144 DD/ 1109 TD/TT: 10/18/24 1127 [employer] Pickup Truck Driver: us Jenifer Chi DO CV VASCULAR PROCEDURES Final Result [facility] [address] [place] [phone] * (ABNORMAL) POCT HGB A1C (09/06/2024 12:33 PM EDT) Hemoglobin A1C 6.4(A) 4.0 - 5.7 % Blood 09/06/2024 12:3 3 PM EDT Jenifer Chi DO POINT OF CARE TEST ENTER/WOOD T ORDERABLES Final Result * (ABNORMAL) Lipid Panel, Standard (05/21/2024 10:24 AM EDT) Triglycerides 161(H) <150 mg/dL [facility] Comment:Desirable Triglyceri de: less than 150 mg/dLBorderline High Triglyceride 150-199 mg/dLHigh Triglyceride: 200-499 mg/dLVery High Triglyceride: greater than or equal to 5OO mg/dL Cholesterol 161 <200 mg/dL [facility] Comment:Desirable Cholestero l: less than 200 mg/dLBorderline High Cholesterol: 200-239 mg/dLHigh Cholesterol: greater than 239 mg/dL LDL Cholesterol Calculated 90 <100 mg/dL [facility] Comment:Desirable LDL: less than 100 mg/dLNear Optimal/Above Optimal LDL: 110- 129 mg/dLBorderline High LDL: 130-159 mg/dLHigh LDL: 160-189 mg/dLVery High LDL: greater than or equal to 190 mg/dL HDL Cholesterol 39(L) >40 mg/dL [facility] Comment:Desirable HDL: great er than 40 mg/dL Note: This HDL assay may give artificially low results in patients with liver disease. 05/21/2024 10:2 4 AM EDT 05/21/2024 11:07 AM EDT Jenifer Chi DO LAB BLOOD ORDERABLES Final R esult [facility] [address] [place] [address] [phone] * Albumin, Random Urine W/Creatinine (11/10/2023 10:25 AM EDT) Creatinine, Urine 280.99 mg/dL [facility] Microalbumin Urine 26.0 mg/L [facility] Microalbum Creatinine Ratio Ur 9.2 <30 ug/mg cr [facility] Comment:Albumin/Creatinine R atio Reference Ranges: Normal: < 30 ug/mg creatinine Microalbuminuria: 30 - 300 ug/mg creatinineClinical Albuminuria: > 300 ug/mg creatinine Urine (Urine, Random) 11/10/2023 10:25 AM EDT 11/10/2023 11:42 AM EDT us Jenifer Chi DO LAB URINE ORDERABLES Final R esult Performing Organization Address [facility] Co de Phone Number [facility] [address] [place] [address] [phone] * Hepatitis C Antibody with Reflex to HCV, RNA, Quantitative, Real-Time PCR (11/10/2023 10:21 AM EDT) Hepatitis C Antibody Nonreactive Nonreactive [facility] Comment:Antibodies to HCV no t detected; does not exclude early acuteHCV infection. Blood Venous blood specimen / Unknown 11/10/2023 10:21 AM EDT 11/10/2023 11:51 AM EDT us Jenifer Chi DO LAB BLOOD ORDERABLES Final R esult Performing Organization Address City/[facility]/ZIP Co de Phone Number [facility] [address] [place] [address] [phone] from Last 3 Months or Most Recently Relevant to Health Maintenance Insurance MEDICARE [facility] STANDARD Care Teams Funeral Director'S Assistant Relationship Specialty Start Date End Date Jenifer Chi DO [address] [place] [address] PCP - General Family Medicine 11/10/23 Sherrill Franklin PharmD [address] [place] [address] Pharmacist Internal Medicine 11/17/23
== END 2024-10-18 10:46 | disposition home or self-care (01) ==
LOC: HO.US 10:45
PROVIDERS: PCP Family Medicine; Visit Provider Family Medicine
DX: R42 Dizziness and giddiness (principal)
CPT/HCPCS: 93880

== ENCOUNTER → 2024-10-18 10:47 | Outpatient (BNV) | payer MEDICARE, MEDICAID, SELFPAY | PROVIDERS: PCP Family Medicine; Visit Provider Radiology Diagnostic Radiology | DX: R42 Dizziness and giddiness (principal) | CPT/HCPCS: 93880 ==

== ENCOUNTER 2024-11-17 08:01 | Outpatient (REF) | payer MEDICARE, MEDICAID, SELFPAY ==
--- NOTE | ~2024-11-17 | CT_ITS ---
CLINICAL HISTORY: worsening dizziness CT of the head without intravenous contrast Comparison: None Findings: The ventricles and sulci are prominent, consistent with generalized cerebral parenchymal volume loss. The ventricles are symmetric and the basilar cisterns are intact. Mild periventricular, deep and subcortical white matter hypodensities are nonspecific but statistically reflect the sequela of chronic small vessel ischemic change. No intracranial hemorrhage, extra-axial fluid collection, midline shift or mass-effect is evident. No evidence of acute large vessel or territorial ischemia. Brainstem and cerebellum unremarkable. Vascular calcifications indicate intracranial atherosclerosis. The imaged portion of the paranasal sinuses demonstrated mild maxillary sinusitis. No mastoid effusions are demonstrated. The orbital contents are unremarkable. Calvarium is intact. Impression: 1. No CT evidence of acute intracranial abnormality. 2. Cerebral volume loss, intracranial atherosclerotic disease and mild sequela of chronic small vessel ischemic disease. This document has been electronically signed by: Tigre Busby MD on 11/19/2024 16:30:57
--- OUTSIDE RECORDS SUMMARY | 2024-11-17 08:06 | XMS_ITS | Encounter Summary ---
Author Organization [employer] Address [address] [place] [address] [address] [place] [address] Care Team Providers Care Shank Skinner Name Role Phone Jenifer Chi DO Primary Care Provider [phone] Sherrill Franklin PharmD Unavailable [phone] Reason for Visit * Reason Onset Date Comments Durable Medical Equipment 10/19/2024 Encounter Details Date Type Department Care Team (Late st Contact Info) Description 10/19/2024 Telephone [facility] MEDICINE [address] [place], [place] [phone] Jenifer Chi DO [address] [place] [address] Durable Medical Equipment Social History Tobacco Use Types Packs/Day Years [...] encounter Miscellaneous Notes * Telephone Encounter - Joseph Parikh - 10/19/2024 3:38 PM EDT TC from [facility] requesting Incontinence pads for the bed . Script to be sent to [facility] documented in this encounter Plan of Treatment Upcoming Encounters Date Type Department Care Team (Late st Contact Info) Description 12/10/2024 9:00 AM EDT Medication Management [facility] MEDICINE [address] [place] [address] Sherrill Franklin PharmD [address] [place] [address] documented as of this encounter Visit Diagnoses Not on filedocumented in this encounter Additional Health Concerns Assessment Noted Time PHQ-9 Depression Total Score: 3 11/10/19 24 9:00 AM EDT documented as of this encounter Care Teams Shank Skinner Relationship Specialty Start Date End Date Jenifer Chi DO [address] [place] [address] PCP - General Family Medicine 11/10/23 Sherrill Franklin, PharmD [address] [place] [phone] Pharmacist Internal Medicine 11/17/23 [facility] 09/25/24 documented as of this encounter
--- OUTSIDE RECORDS SUMMARY | 2024-11-17 08:06 | XMS_ITS | Clinical Summary ---
Author Organization 175 [facility] Address [address] [place] [address] Phone Care Team Providers Care Decal Decorator Name Role Phone Alon Jenifer Penny CUMMINGS Primary Care Provider [phone] Allergies No known active allergies Medications acetaminophen [...] a day for 14 days. 14 capsule 10/04/2024 10/19/19 25 Active Problems Problem Noted Date Diagnosed Date PAD (peripheral artery disease) ([facility] V24) Ulcer of toe of right foot, with necrosis of bone ([facility] V24, [facility] V28) 11/06/2024 Diabetic foot infection ([facility] V24, [facility] V2 8) 09/15/2024 Chronic wound 09/14/2024 Encounters Date Type Department Care Team Description 11/06/2024 9:45 AM EDT Office Visit Orthopedic Surgery [facility] [address] [phone] Brian Evangelista DPM Poorly controlled type 2 diabetes mellitus with neuropathy ([facility] V24, [facility] V28) (Primary Dx); PAD (peripheral artery disease) ([facility] V24); Ulcer of toe of right foot, with necrosis of bone ([facility] V24, [facility] V28); Dehiscence of operative wound, subsequent encounter 11/02/2024 7:00 AM EDT Ancillary Procedure [facility] 101 300 [facility] [address] [place] [phone] PAD (peripheral artery disease) ([facility] V24) 10/30/2024 9:15 AM EDT Office Visit Orthopedic Surgery [facility] [address] [phone] rBian Evangelista DPM Poorly controlled type 2 diabetes mellitus with neuropathy (CMS/HCC V24, CMS/HCC V28) (Primary Dx); PAD (peripheral artery disease) ([facility] V24); Ulcer of toe of right foot, with necrosis of bone (CMS/HCC V24, CMS/HCC V28); Dehiscence of operative wound, subsequent encounter 10/16/2024 9:15 AM EDT Office Visit Orthopedic [place] [phone] [phone] Brian Evangelista DPM Poorly controlled type 2 diabetes mellitus with neuropathy (CMS/HCC V24, CMS/HCC V28) (Primary Dx); PAD (peripheral artery disease) (CMS/HCC V24); Ulcer of toe of right foot, with necrosis of muscle (CMS/HCC V24, CMS/HCC V28) 10/10/2024 8:45 AM EDT Office Visit Orthopedic Surgery [facility] [address] [phone] Brian Evangelista DPM Poorly controlled type 2 diabetes mellitus with neuropathy (CMS/HCC V24, CMS/[facility] V28) (Primary Dx); PAD (peripheral artery disease) ([facility] V24); Ulcer of toe of right foot, with fat layer exposed ([facility] V24, CMS/[facility] V28) 10/05/2024 Telephone Orthopedic Surgery [facility] [address] [phone] Brian Evangelista DPM 10/04/2024 11:15 AM EDT Office Visit Orthopedic Surgery [facility] [address] [phone] Brian Evangelista DPM Poorly controlled type 2 diabetes mellitus with neuropathy ([facility]/HCC V24, CMS/HCC V28) (Primary Dx); PAD (peripheral artery disease) ([facility] V24); Ulcer of toe of right foot, with fat layer exposed ([facility] V24, CMS/HCC V28); Dehiscence of operative wound, initial encounter 09/16/2024 8:00 AM EDT - 09/16/2024 9:[address] [facility] [address] [place] [phone] Brian Evangelista DPM AMPUTATION TOE 1ST AND 09/16/2024 7:56 AM EDT An[address] Event [facility] [address] [place] [phone] Bryson Martinez MD Dasilva, John E, MD 09/14/2024 10:45 AM EDT - 09/20/2024 12:25 PM EDT Hospital Encounter [facility] [address] [place] [phone] Alfie Acuna MD Flores, Carlos M, MD Santoyo-Pachec o, Omar D, MD Rasul, Yar M, MD Diabetic foot infection [place] [place] [facility] (Primary Dx); Chronic wound; Osteomyelitis of foot, right, acute ([facility] [facility] Discharge Disposition: [place] [facility]/10/2024 11:00 AM EDT Office Visit Orthopedic Surgery [place] 250 175 [facility] [address] [place] [phone] Brian Evangelista DPM Poorly controlled type 2 diabetes mellitus with neuropathy ([facility] [place], [facility] (Primary Dx); PAD (peripheral artery disease) ([facility] [place]); Ulcer of toe of right foot, with necrosis of bone ([facility], [facility] [place]); Acute osteomyelitis of right ankle or foot ([facility] [place], [facility] [place] 08/30/2024 12:15 PM EDT Consult Vascular Surgery - [place] [address] [place] [phone] Monika Vu MD PAD (peripheral artery disease) ([facility] [place] from Last 3 Months Social History Tobacco [...] Safety Answer Date Record ed Physical Abuse Unrecognized value 09/14/2024 Verbal Abuse Unrecognized value 09/14/2024 Comments Unknown Sex and Gender Information [...] Care Team (Late st Contact Info) Description 11/20/2024 10:15 AM EDT Office Visit Orthopedic Surgery [facility] 250 175 [facility] [address] [place] [phone] Brian Evangelista, GIGI 175 [facility] [address] [place] [address] 11/21/2024 9:[address] [facility] [address] [place] [phone] 12/05/2024 8:30 AM EDT Office Visit Vascular Surgery [facility] [address] [place] [phone] Monika Vu MD [address] [place] [phone] Scheduled Procedures Name Priority Associated Diagnoses Date/Ti me AMPUTATION TOE PAD (peripheral artery disease) ([facility] V24) Ulcer of toe of right foot, with necrosis of bone ([facility] V24, [facility] V28) Health Maintenance Due Date Last Done Comments Breast Cancer Screening 1950 Colorectal Cancer Screening: Colonoscopy 1950 Diabetes: Annual Retina Eye Exam 05/30/1961 Depression Screening 02/15/2024 Medicare Annual Wellness Visit 06/23/2024 Osteoporosis Screening (Bone Density Screening) 06/23/2024 Diabetes: Annual Urine Albumin-Creatinine Ratio (uACR) 07/13/2024 Zoster Vaccines (2 of 2) 07/16/2024 05/21/2024 COVID-19 Vaccine (2 - 2023- season) 2024 11/10/2023 Influenza Vaccine (#1) 2024 [...] Procedure Name Priority Date/Time Associated Diagnosis Comments VAS US DUPLEX LOWER EXT ARTERIES BILAT WITH CUCA Routine 11/02/2024 7:40 AM EDT PAD (peripheral artery disease) ([facility] V24) XR FOOT 3+ VIEWS RIGHT Routine 10/04/2024 [...] 19 PM EDT VANCOMYCIN, TROUGH Timed 09/17/2024 1 :18 PM EDT POCT GLUCOSE BLOOD Routine 09/17/2024 [...] CULTURE BLOOD STAT 09/14/2024 11:32 AM EDT from Last 3 Months Results * Vascular US duplex lower extremity arteries bilateral with CUCA (11/02/2024 7:40 AM EDT) Left Dist External Iliac PSV 134 cm/s [facility] Left Prox External Iliac PSV 169 cm/s [facility] Left AT dist sys PSV 83 cm/s [facility] Left AT mid sys PSV 61 cm/s [facility] Left AT prox sys PSV 77 cm/s [facility] Left RN CVICU prox sys PSV 119 cm/s [facility] Left mid peroneal sys PSV 11 cm/s [facility] Left popliteal dist sys PSV 71 cm/s [facility] Left popliteal prox sys PSV 86 cm/s [facility] Left PT dist sys PSV 0 cm/s [facility] Left PT mid sys PSV 0 cm/s CV [facility] Left PT prox sys PSV 0 cm/s [facility] Left super femoral dist sys PSV 144 cm/s [facility] Left super femoral mid sys PSV 88 cm/s CV [facility] Left super femoral prox sys PSV 82 cm/s CV [facility] Right Dist External Iliac PSV 106 cm/s CV [facility] LAB Right Prox External Iliac PSV 154 cm/s [facility] Right AT dist sys PSV 59 cm/s [facility] Right AT mid sys PSV 55 cm/s [facility] Right AT prox sys PSV 49 cm/s [facility] Right RN CVICU prox sys PSV 101 cm/s CV [facility] LAB Right mid peroneal sys PSV 37 cm/s CV V[facility] LAB Right popliteal dist sys PSV 65 cm/s CV [facility] LAB Right popliteal prox sys PSV 60 cm/s [facility] Right PT dist sys PSV 0 cm/s [facility] Right PT mid sys PSV 27 cm/s [facility] Right PT prox sys PSV 129 cm/s [facility] Right super femoral dist sys PSV 298 cm/s [facility] Right super femoral mid sys PSV 69 cm/s [facility] Right super femoral prox sys PSV 79 cm/s [facility] Right arm BP 116 mmHg [facility] Left arm BP 112 mmHg [facility] Right posterior tibial 94 mmHg [facility] Right Dorsalis Pedis 114 mmHg [facility] Right CUCA 0.98 CV V[facility] LAB Left Dorsalis Pedis 150 mmHg [facility] Left CUCA 1.29 CV [facility] Right profunda sys PSV 118 cm/s CV [facility] Left profunda sys PSV 140 cm/s CV [facility] LAB Anatomical Region Laterality Modality Vascular, Abdomen Ultrasound Narrative 11/04/2024 3:42 PM EDT Right: The CUCA is 0.98 indicating borderline PAD. The pulse volume waveform is probably monophasic at the right ankle. There is calcific atherosclerotic palque in the right lower extremity arteries. There is severe (50-99%) stenosis of right distal SFA. The Doppler waveforms indicates retrograde flow which may be by collaterals. There is severe (50 to 99%) stenosis of the right proximal popliteal artery. Three-vessel runoff at the right calf. Left: The CUCA is 1.29 which is normal. The Doppler waveform is most likely monophasic at the left ankle. There is calcific atherosclerotic palque in the left lower extremity arteries. The left posterior tibial artery is occluded. Two-vessel runoff at the left calf. Right CUCA Right BP= 116/71 Left CUCA Left BP= 112/58 Left PT not audible. Right Lower Arterial Duplex The distal external iliac artery has biphasic flow. The common femoral artery has biphasic flow. The profunda femoris artery has biphasic flow. The proximal superficial femoral artery has biphasic flow. The mid superficial femoral artery has biphasic flow. The distal superficial femoral artery is turbulent. The distal superficial femoral artery has monophasic flow. The popliteal artery has monophasic flow. The anterior tibial artery has monophasic flow. The proximal posterior tibial artery has monophasic flow. The mid posterior tibial artery has monophasic flow. The distal posterior tibial artery has absent flow. The mid peroneal artery has monophasic flow. Left Lower Arterial Duplex The distal external iliac artery has biphasic flow. The common femoral artery has triphasic flow. The profunda femoris artery has biphasic flow. The superficial femoral artery has biphasic flow. The popliteal artery has biphasic flow. The anterior tibial artery has biphasic flow. The posterior tibial artery has absent flow. The mid peroneal artery has monophasic flow. Claim Representative Details A monten[place]ro scale, color and doppler analysis ultrasound was performed. During the study longitudinal views were obtained. Pulsed wave doppler was performed. Monika Vu MD CV VASCULAR PROCEDURES Fi nal Result * XR Foot 3+ Views Right (10/04/2024 11:35 AM EDT) Only the most recent of2 resultswithin the time period is included. Anatomical Region Laterality Modality Lower Extremities, Foot Right Computed Radiography Narrative 10/04/2024 12:07 PM EDT Right foot 3 views:Recent amputation to the 1st and 5th toe. No subcutaneous gas Brian Evangelista DPKena IMG XR PROCEDURES Edited Re sult - Final * (ABNORMAL) POCT Glucose, blood (09/20/2024 11:41 AM EDT) Only the most recent of24 resultswithin the time period is included. [facility] Glucose POCT 236(H) 70 - 100 mg/dL 09/20/2024 11:42 AM EDT [facility] Blood Capillary blood specimen / Unknown 09/20/2024 11:41 AM EDT 09/20/2024 11:45 AM EDT Jesús Pacheco MD LAB POINT OF CARE TE ST DOCKED DEVICE UNSOLICITED RESULTS Final Result [facility] [address] [place] [address], [place] [phone] * (ABNORMAL) CBC auto differential (09/20/2024 5:46 AM EDT) Only the most recent of4 resultswithin the time period is included. [facility] WBC 9.3 4.8 - 10.8 K/mcL LAB HEMETOLOGY METHOD 09/20/2024 7:10 AM [facility] RBC 4.10 3.80 - 4.80 M/mcL LAB HEMETOLOGY METHOD 09/20/2024 7:10 AM [facility] Hemoglobin 11.3(L) 11.5 - 16.0 g/dL LAB HEMETOLOGY METHOD 09/20/2024 7:10 AM [facility] Hematocrit 36.3 35.0 - 47.0 % LAB HEMETOLOGY METHOD 09/20/2024 7:10 AM [facility] MCV 89.0 79.0 - 98.0 FL LAB HEMETOLOGY METHOD 09/20/2024 7:10 AM [facility] MCH 27.7 27.0 - 32.0 pcg LAB HEMETOLOGY METHOD 09/20/2024 7:10 AM [facility] MCHC 31.1(L) 32.0 - 37.0 g/dL LAB HEMETOLOGY METHOD 09/20/2024 7:10 AM [facility] RDW 13.7 11.0 - 15.0 % LAB HEMETOLOGY METHOD 09/20/2024 7:10 AM [facility] Platelets 249 130 - 400 K/[facility] LAB HEMETOLOGY METHOD 09/20/2024 7:10 AM [facility] MPV 9.8 7.0 - 11.0 FL LAB HEMETOLOGY METHOD 09/20/2024 7:10 AM [facility] NRBC 0.0 <1.0 % LAB HEMETOLOGY METHOD 09/20/2024 7:10 AM [facility] NRBC Absolute 0.00 <0.10 K/mcL LAB HEMETOLOGY METHOD 09/20/2024 7:10 AM [facility] Neutrophils Relative 62.2 % LAB HEMETOLOGY METHOD 09/20/2024 7:10 AM [facility] Lymphocytes Relative 22.7 % LAB HEMETOLOGY METHOD 09/20/2024 7:10 AM [facility] Monocytes Relative 7.6 % LAB HEMETOLOGY METHOD 09/20/2024 7:10 AM [facility] Eosinophils Relative 6.6 % LAB HEMETOLOGY METHOD 09/20/2024 7:10 AM [facility] Basophils Relative 0.6 % LAB HEMETOLOGY METHOD 09/20/2024 7:10 AM [facility] Immature Granulocytes Relative 0.3 % LAB HEMETOLOGY METHOD 09/20/2024 7:10 AM [facility] Neutrophils Absolute 5.80 1.50 - 7.00 K/mcL LAB HEMETOLOGY METHOD 09/20/2024 7:10 AM [facility] Lymphocytes Absolute 2.12 1.00 - 5.00 K/mcL LAB HEMETOLOGY METHOD 09/20/2024 7:10 AM [facility] Monocytes Absolute 0.71 0.20 - 1.00 K/mcL LAB HEMETOLOGY METHOD 09/20/2024 7:10 AM [facility] Eosinophils Absolute 0.62(H) 0.00 - 0.50 K/mcL LAB HEMETOLOGY METHOD 09/20/2024 7:10 AM [facility] Basophils Absolute 0.06 0.00 - 0.20 K/mcL LAB HEMETOLOGY METHOD 09/20/2024 7:10 AM [facility] Immature Granulocytes Absolute 0.03 0.00 - 0.03 K/mcL LAB HEMETOLOGY METHOD 09/20/2024 7:10 AM [facility] Blood Blood sample taken from central line / Unknown Venipuncture / Unknown 09/20/2024 5:46 AM EDT 09/20/2024 6:46 AM EDT us Jesús Pacheco MD LAB BLOOD ORDERABLES Final Resul t [facility] [address] [place] [address], * (ABNORMAL) Basic metabolic panel (09/20/2024 5:46 AM EDT) Only the most recent of4 resultswithin the time period is included. Sodium 139 133 - 145 mmol/L LAB CHEMISTRY METHOD 09/20/2024 7:36 AM [facility] Potassium 4.0 3.5 - 5.5 mmol/L LAB CHEMISTRY METHOD 09/20/2024 7:36 AM [facility] Chloride 103 96 - 110 mmol/L LAB CHEMISTRY METHOD 09/20/2024 7:36 AM [facility] CO2 33(H) 21 - 32 mmol/L LAB CHEMISTRY METHOD 09/20/2024 7:36 AM [facility] Anion Gap 3 3 - 11 LAB CHEMISTRY METHOD 09/20/2024 7:36 AM [facility] Glucose 129(H) 70 - 100 mg/dL LAB CHEMISTRY METHOD 09/20/2024 7:36 AM [facility] BUN 14 5 - 25 mg/dL LAB CHEMISTRY METHOD 09/20/2024 7:36 AM [facility] Creatinine 1.00 0.50 - 1.10 mg/dL LAB CHEMISTRY METHOD 09/20/2024 7:36 AM [facility] eGFR 60 >=60 mL/min/1. 73m2 LAB CHEMISTRY METHOD 09/20/2024 7:36 AM [facility] Comment:Calculation based on the Chronic Kidney Disease Epidemiology Collaboration (CKD-EPI) equation refit without adjustment for race. BUN/Creatinine Ratio 14.0 LAB CHEMISTRY METHOD 09/20/2024 7:36 AM EDT [facility] Calcium 9.0 8.5 - 10.5 mg/dL LAB CHEMISTRY METHOD 09/20/2024 7:36 AM EDT [facility] Blood Blood sample taken from central line / Unknown Venipuncture / Unknown 09/20/2024 5:46 AM EDT 09/20/2024 6:45 AM EDT Jesús Pacheco MD LAB BLOOD ORDERABLES Final Resul t Performing Organization Address [facility] de Phone Number [facility] [address] [place] [address], [place] [phone] * Vancomycin, trough Please draw one hour prior to vanco dose. (09/17/2024 1:18 PM EDT) Only the most recent of2 resultswithin the time period is included. Vancomycin Trough 14.1 10.0 - 20.0 mcg/mL LAB CHEMISTRY METHOD 09/17/2024 2:05 PM EDT [facility] Blood Venous blood specimen / Unknown Venipuncture / Unknown 09/17/2024 1:18 PM EDT 09/17/2024 1:23 PM EDT us Jenaro Reilly MD LAB BLOOD ORDERABLES F inal Result Performing Organization Address City/[facility]/ZIP Co de Phone Number [facility] [address] [place] [address], [place] [phone] * Phosphorus (09/17/2024 5:08 AM EDT) Phosphorus 4.0 2.5 - 4.5 mg/dL LAB CHEMISTRY METHOD 09/17/2024 6:49 AM EDT [facility] Blood Venous blood specimen / Unknown Venipuncture / Unknown 09/17/2024 5:08 AM EDT 09/17/2024 6:11 AM EDT us Jenaro eRilly MD LAB BLOOD ORDERABLES F inal Result Performing Organization Address [facility]/ZIP Co de Phone Number [facility] [address] [place] [address], [place] [phone] * (ABNORMAL) Magnesium (09/17/2024 5:08 AM EDT) Only the most recent of2 resultswithin the time period is included. Magnesium 1.7(L) 1.9 - 2.6 mg/dL LAB CHEMISTRY METHOD 09/17/2024 6:49 AM EDT [facility] Blood Venous blood specimen / Unknown Venipuncture / Unknown 09/17/2024 5:08 AM EDT 09/17/2024 6:11 AM EDT us Jenaro Reilly MD LAB BLOOD ORDERABLES F inal Result Performing Organization Address [facility]/ZIP Co de Phone Number [facility] [address] [place] [address], * (ABNORMAL) Creatinine serum (09/16/2024 11:20 AM EDT) Creatinine 1.13(H) 0.50 - 1.10 mg/dL LAB CHEMISTRY METHOD 09/16/2024 11:50 AM EDT [facility] eGFR 51(L) >=60 mL/min/1. 73m2 LAB CHEMISTRY METHOD 09/16/2024 11:50 AM EDT [facility] Comment:Calculation based on the Chronic Kidney Disease Epidemiology Collaboration (CKD-EPI) equation refit without adjustment for race. Blood Venous blood specimen / Unknown Venipuncture / Unknown 09/16/2024 11:20 AM EDT 09/16/2024 11:25 AM EDT Jenaro Reilly MD LAB BLOOD ORDERABLES F inal Result Performing Organization Address [facility]/ZIP Co de Phone Number [facility] [address] [place] [address], [place] [phone] * Culture anaerobic with gram stain (09/16/2024 8:24 AM EDT) Only the most recent of2 resultswithin the time period is included. Culture, Anaerobic No Growth of Anaerobes. 09/21/2024 7:39 AM EDT [facility] Gram Stain Result Refer to Aerobic culture for gram stain results. 09/21/2024 7:39 AM EDT [facility] Swab Structure of toe of right foot / Unknown 09/16/2024 8:24 AM EDT 09/16/2024 8:39 AM EDT Brian Evangelista DPM LAB MICROBIOLOGY - GENERAL ORDERABLES Final Result Performing Organization Address [facility] de Phone Number [facility] [address] [place] [address], [place] [phone] * (ABNORMAL) Culture wound deep (09/16/2024 8:24 AM EDT) Only the most recent of2 resultswithin the time period is included. Culture, Wound Methicillin-Sensiti ve Staphylococcus aureus(A) MATEO 09/19/2024 10:06 AM EDT [facility] Comment: Negative for PBP2a - indicates susceptible to Oxacillin The organism value for this result has been updated. These results have been appended to the previously preliminary verified report. Edited result: Previously reported as Staphylococcus aureus on 09/17/2024 at 1054 EDT. Gram Stain Result No epithelial cells seen 09/19/2024 10:06 AM EDT [facility] Gram Stain Result Many Polymorphonuclear leukocytes 09/19/2024 10:06 AM EDT [facility] Gram Stain Result No organisms seen 09/19/2024 10:06 AM EDT [facility] Swab Structure of toe of right foot / Unknown 09/16/2024 8:24 AM EDT 09/16/2024 8:39 AM EDT Narrative [facility] - 09/19/2024 10:06 AM EDT Sparse [...] aureus Trimethoprim/Sulfamethoxazo le MATEO <=10 ug/ml: Susceptible us Brian Evangelista DPKena LAB MICROBIOLOGY - GENERAL ORDERABLES Final Result [facility] [address] [place] [address], * Tissue exam (09/16/2024 8:17 AM EDT) Final Diagnosis A. Right, 1st Toe-amputation: -VIABLE APPEARING BONE B. Right, 5th Toe- clean margin: -VIABLE APPEARING BONE 09/19/2024 12:38 PM EDT [facility] Gross Description A. Toe, Right, 1st [...] show hard to brittle yellow bone. A solar sales representative longitudinal section is submitted in one [...] piece, following decalcification. 09/19/2024 12:38 PM EDT [facility] Disclaimer Unless otherwise specified, all tissue is 10% NB formalin fixed and paraffin embedded. 09/19/2024 12:38 PM EDT [facility] Tissue Structure of toe of right foot / Unknown 09/16/2024 8:17 AM EDT 09/17/2024 7:36 AM EDT Tissue specimen (specimen) Structure of toe of right foot / Unknown 09/16/2024 8:21 AM EDT 09/17/2024 7:36 AM EDT Brian Evangelista DPM LAB PATHOLOGY ORDERABLES Fi nal Result [facility] [address] [place] [address], * SST tube (09/15/2024 8:07 AM EDT) Pathologist [facility] Extra Tube Hold for add-ons. 09/15/2024 10:01 AM EDT [facility] Comment:Auto resulted. Blood Venous blood specimen / Unknown 09/15/2024 8:07 AM EDT 09/15/2024 8:31 AM EDT Jenaro Reilly MD LAB BLOOD ORDERABLES F inal Result [facility] [address] [place] [address], * ECG 12 lead (09/15/2024 7:31 AM EDT) Ventricular Rate ECG 95 BPM GEMUSE Atrial Rate 95 BPM GEMUSE P-R Interval 124 ms GEMUSE QRS Duration 72 ms GEMUSE Q-T Interval 374 ms GEMUSE QTc 469 ms GEMUSE P Wave [place] 30 degrees GEMUSE R [place] 14 degrees GEMUSE T [place] 74 degrees GEMUSE ECG Interpretation Normal sinus rhythm Normal ECG No previous ECGs available Confirmed by MD Luis Alberto, [place] ([id number]) on 09/15/2024 9:58:05 PM GEMUSE 09/15/2024 7:31 AM EDT 09/15/2024 9:58 PM EDT Jonathan Christina MD ECG ORDERABLES Final Result GEMUSE * Lactate (09/15/2024 7:05 AM EDT) Lactate 1.6 0.4 - 2.0 mmol/L LAB CHEMISTRY METHOD 09/15/2024 7:57 AM EDT [facility] Blood Venous blood specimen / Unknown Venipuncture / Unknown 09/15/2024 7:05 AM EDT 09/15/2024 7:33 AM EDT us Jonathan Christina MD LAB BLOOD ORDERABLES Final Re sult Performing Organization Address [facility]/ZIP Co de Phone Number [facility] [address] [place] [address], [place] [phone] * (ABNORMAL) Lactate, with reflex (09/14/2024 1:42 PM EDT) Only the most recent of2 resultswithin the time period is included. LACTIC ACID 3.4(HH) 0.4 - 2.0 mmol/L LAB CHEMISTRY METHOD 09/14/2024 2:28 PM EDT [facility] Blood Venous blood specimen / Unknown Venipuncture / Unknown 09/14/2024 1:42 PM EDT 09/14/2024 1:58 PM EDT us Alfie Acuna MD LAB BLOOD ORDERABLES Final Resu lt Performing Organization Address [facility] Co de Phone Number [facility] [address] [place] [address], [place] [phone] * (ABNORMAL) C-reactive protein (09/14/2024 12:36 PM EDT) C-Reactive Protein 0.77(H) <=0.50 mg/dL LAB CHEMISTRY METHOD 09/14/2024 2:45 PM EDT [facility] Blood Venous blood specimen / Unknown Venipuncture / Unknown 09/14/2024 12:36 PM EDT 09/14/2024 12:43 PM EDT us Jonathan Christina MD LAB BLOOD ORDERABLES Final Re sult Performing Organization Address City/[facility]/ZIP Co de Phone Number [facility] [address] [place] [address], [place] [phone] * Lavender tube (09/14/2024 12:30 PM EDT) [facility] Extra Tube Hold for add-ons. 09/14/2024 2:01 PM EDT [facility] Comment:Auto resulted. Blood Venous blood specimen / Unknown 09/14/2024 12:30 PM EDT 09/14/2024 12:44 PM EDT Alfie Acuna MD LAB BLOOD ORDERABLES Final Resu lt Performing Organization Address [facility]/ZIP Co de Phone Number [facility] [address] [place] [address], [place] [phone] * (ABNORMAL) Hemoglobin A1c (09/14/2024 12:30 PM EDT) [facility] Hemoglobin A1C 6.7(H) <6.5 % LAB CHEMISTRY METHOD 09/14/2024 11:02 PM EDT [facility] Mean Bld Glu Estim. 146 mg/dL LAB CHEMISTRY METHOD 09/14/2024 11:02 PM EDT [facility] Blood Venous blood specimen / Unknown 09/14/2024 12:30 PM EDT 09/14/2024 12:44 PM EDT Jonathan Christina MD LAB BLOOD ORDERABLES Final Re sult Performing Organization Address City/[facility]/ZIP Co de Phone Number [facility] [address] [place] [address], [place] [phone] * Culture blood (09/14/2024 11:32 AM EDT) Only the most recent of2 resultswithin the time period is included. [facility] Culture, Blood No growth at 5 days 09/19/2024 1:01 PM EDT [facility] Blood Venous blood specimen / Unknown Venipuncture / Unknown 09/14/2024 11:32 AM EDT 09/14/2024 11:48 AM EDT us Alfie Acuna MD LAB MICROBIOLOGY - GENERAL HAROLDO BOWMAN Final Result [facility] ([facility] [address] [place] [address], [place] [phone] from Last 3 Months Insurance MEDICARE [place] Advance Directives * Full [...] currently active code status orders. Care Teams Decal Decorator Relationship Specialty Start Date End Date Jenifer Chi DO [address] [place] [address] PCP - General Family Medicine 08/08/24
--- OUTSIDE RECORDS SUMMARY | 2024-11-17 08:07 | XMS_ITS | Encounter Summary ---
Author Organization [employer] Address [address] [place] [address] [address] [place] [address] Care Team Providers Care Shower Room Attendant Name Role Phone YuliyaJenifer morse Primary Care Provider [phone] Sherrill Franklin PharmD Unavailable Encounter Details Date Type Department Care Team (Late st Contact Info) Description 02/17/2024 Orders Only [facility] [address] [place], [place] [phone] Beba Palomares MD [address] [place], [place] [phone] Constipation, unspecified constipation type (Primary Dx) Social [...] Upcoming Encounters Date Type Department Care Team ([facility] st Contact Info) Description 12/10/2024 9:00 AM EDT Medication Management [facility] [address] [place] [address] Sherrill Franklin PharmD [address] [place] [address] documented as of this encounter Visit Diagnoses Diagnosis Constipation, unspecified constipation type- Primary documented in this encounter Additional Health Concerns Assessment Noted Time PHQ-9 Depression Total Score: 3 11/10/19 24 9:00 AM EDT documented as of this encounter Care Teams Shower Room Attendant Relationship Specialty Start Date End Date Jenifer Chi DO [address] [place] [phone] PCP - General Family Medicine 11/10/23 Sherrill Franklin, PharmD [address] [place] [phone] Pharmacist Internal Medicine 11/17/23 Eliu Smyth 09/25/24 documented as of this encounter
--- OUTSIDE RECORDS SUMMARY | 2024-11-17 08:08 | XMS_ITS | Clinical Summary ---
Author Organization [employer] Address [address] [facility] [address] [place] [address] Care Team Providers Care Market Research Worker Name Role Phone Jenifer Chi Primary Care Provider Sherrill Franklin PharmD Unavailable [phone] Allergies No known active allergies Medications Alcohol Swabs 70 % pads Use to test blood sugar 2 times daily 100 each 11/10/19 24 Active Blood Glucose Monitoring Suppl (FreeStyle [place] Lite) w/Device kit Use to test blood sugar 2 times daily 1 kit 11/10/19 24 Active Blood Pressure kit 1 each 1 (one) time per week. 1 kit 11/10/19 24 Active losartan (Cozaar) 100 MG tablet Take 1 tablet (100 mg) by mouth Once per day. 30 tablet 11/10/19 24 Active metoprolol succinate XL (Toprol XL) 50 MG 24 hr tablet Take 1 tablet (50 mg) by mouth Once per day. Do not crush or chew. 30 tablet 11/10/19 24 Active GAS RELIEF 125 MG capsule TAKE 1 CAPSULE BY MOUTH 4 TIMES A DAY IN THE MORNING, AT NOON, IN THE EVENING, AND AT BEDTIME NEEDED FOR GAS 11/10/19 24 Active atorvastatin (Lipitor) 80 MG tablet Take 1 tablet (80 mg) by mouth Once per day. 30 tablet 11 11/17/19 24 Active TRUEplus Lancets 33G misc TEST BLOOD SUGAR EVERY DAY 100 each 01/04/20 24 Active glucose blood (FREESTYLE LITE) test strip Use to test blood sugar once daily 50 each 11 01/04/20 24 025 Active Florastor 250 MG capsule Take 1 [...] breakfast and with evening meal. 180 tablet 09/07/19 25 026 Active Aspirin Low Dose 81 MG EC tablet TAKE 1 TABLET BY MOUTH EVERY EVENING 90 tablet 10/25/19 25 Active FT Fiber Laxative 625 MG tablet TAKE 1 TABLET BY MOUTH TWICE DAILY IN THE MORNING AND IN THE EVENING 180 tablet 10/25/19 25 Active amLODIPine (Norvasc) 10 MG tabletIndicatio ns:Essential hypertension Take 1 tablet (10 mg) by mouth Once per day. 30 tablet 11/10/19 25 026 Active LORazepam (Ativan) 0.5 MG tablet Take 1 tablet (0.5 mg) by mouth 1 (one) time for 1 dose. Please take [address] scan. 1 tablet 11/13/19 Active aspirin (Aspirin Adult Low Dose) 81 MG EC tablet Take 1 tablet (81 mg) by mouth Once per day. 30 tablet 11 11/10/19 24 025 Discontinued polycarbophil (FiberCon) 625 MG tablet Take 1 tablet (625 mg) by mouth 2 times daily. 60 tablet 11/10/19 24 025 Discontinued amLODIPine (Norvasc) 10 MG tablet Take 1 tablet (10 mg) by mouth Once per day. 30 tablet 11 11/17/19 025 Discontinued(Re order (will not trigger notification to Pharmacy)) doxycycline (Vibramycin) 100 MG capsule TAKE 1 CAPSULE BY MOUTH TWICE A DAY FOR 2 WEEKS 10/05/19 025 Discontinued(Th erapy completed) Active Problems Problem Noted Date Diagnosed Date [...] Encounters Date Type Department Care Team Description 11/09/[address] [facility] [address] [place], [place] [phone] Jenifer Chi DO 11/09/2024 Travel 11/08/[address] [facility] [address] [place] [address] Jenifer Chi DO Type 2 diabetes mellitus with retinopathy of both eyes, without long-term current use of insulin, macular edema presence unspecified, unspecified retinopathy severity ([facility]) (Primary Dx) 10/26/[address] [facility] [place] [address] Sherrill Franklin, PharmD Referral 10/23/2024 Refill [facility] [address] [facility] [place] [place] [address] Jenifer Chi DO 10/19/[address] [address] Jenifer Chi DO FYI 10/19/[address] [address] Jenifer Chi DO Durable Medical Equipment 10/17/2024 3:30 PM EDT Office Visit [address] [address] Keena Pelaez ANP Orthostatic hypertension (Primary Dx); Palpitations; Diabetic polyneuropathy associated with type 2 diabetes mellitus ([facility]); Dizziness 10/17/2024 Travel 10/16/[address] [address] Jenifer Chi DO Nurse Triage 10/04/2024 2:30 PM EDT Office Visit [address] [address] Keena Pelaez ANP Diabetic polyneuropathy associated with type 2 diabetes mellitus ([facility]) (Primary Dx); Hospital discharge follow-up; Status post amputation of lesser toe of right foot ([facility]) 10/04/2024 Travel 10/03/[address] [facility] [address] [place] [address] Shelby Fong [place] 09/27/[address] [address] Jenifer Chi DO verbla orders 09/25/[address] [address] Jenifer Chi DO Verbal order 09/24/[address] [address] Jenifer Chi DO FYI 09/21/[address] [facility] [address] [place] [address] Jenifer Chi DO Transition Of Care (Tcm) (HDF unscheduled) 09/12/[address] [facility] [address] [place] [address] Jenifer Chi DO Breast cancer screening by mammogram (Primary Dx) 09/10/[address] [facility] OPTOMETRY [address] [place] [address] Lakesha Weston, OD 09/06/[address] [facility] [address] [place] [address] Jenifer Chi DO 09/06/[address] [facility] [address] [place] [address] Sherrill Franklin, PharmD Care Coordination 09/06/2024 Travel from Last 3 Months Immunizations Immunization Administration Dates Next Due Hep B, adult 05/21/2024,12/15/2023,11/17/2023 Influenza, High Dose Seasona l, Preservative Free 11/09/2024,11/10/2023 Pfizer Covid-19 Vaccine 12+ 11/10/2023 Pneumococcal Conjugate [...] your housing situation today? I have soledad sing 11/02/[address] you li [...] Sign Reading Time Taken Comments Blood Pressure 102/68 11/09/2024 9:51 AM EDT Pulse 100 10/17/2024 4:01 PM EDT Temperature 36.3 C (97.4 F) 10/17/2024 3:14 PM EDT Respiratory Rate 20 10/17/2024 3:14 PM EDT Oxygen Saturation 99% 10/17/2024 3:14 PM EDT Inhaled Oxygen Concentration - - Weight 72.6 kg (160 lb) 11/09/2024 9:51 AM EDT Height 162.6 cm (5' 4 ) 10/17/2024 3:14 PM EDT Body Mass Index 27.46 10/17/2024 3:14 PM EDT Plan of Treatment Upcoming Encounters Date Type Department Care Team (Late st Contact Info) Description 12/10/2024 9:00 AM EDT Medication Management [facility] [address] [place] [address] Sherrill Franklin, PharmD [address] [place] [address] Health Maintenance Due Date Last Done Comments CT Colonography 1950 Colonoscopy 1950 Colorectal Cancer Screening 1950 FIT DNA/Cologuard 1950 FIT 1950 FOBT 1950 Sigmoidoscopy 1950 Diabetes: Foot Exam 05/30/1961 Alcohol/Substance Use Screening 1963 Mammogram 1991 Zoster Vaccines (2 of 2) 07/16/2024 05/21/2024 COVID-19 Vaccine ( - season) 2024 11/10/2023 SDOH Screening 11/01/2024 11/02/2023 Depression Screening 11/09/2024 11/10/2023, 11/10/19 Diabetes: Urine Protein Screening 11/09/2024 11/10/2023 Eye [...] Hepatitis B Vaccines Completed 05/21/2024, 12/15/2023, 11/17/2023 Influenza Vaccine Completed 11/09/2024, 11/10/2023 HIB Vaccines Aged Out No longer eligi [...] Procedure Name Priority Date/Time Associated Diagnosis Comments [facility] US CAROTID ARTERY DUPLEX BILATERAL Routine 10/18/2024 [...] AM EDT) 10/18/2024 11:0 9 AM EDT [facility] IMAGING - 10/18/2024 11:48 AM EDT [address] [address] Ultrasound Report Signed Patient: Yani Stewart MR#: [id number] : 1950 Acct:[id number] Age/Sex: 74 / F ADM Date: 10/18/24 Loc: .US Attending Dr: Jenifer Chi DO Ordering Physician: Jenifer Chi DO Date of Service: 10/18/24 Procedure(s): US carotid duplex BI Accession Number(s): [id number] cc: Jenifer Chi DO Reason for Exam: [...] 10/18/24 1144 DD/ 1109 TD/TT: 10/18/24 1127 Director Reactor Projects: Procedure Note Donotuseinterpreter, Image - 10/18/2024 [place] [address] Ultrasound Report Signed Patient: Yani Stewart [facility]#: [id number] : 2Acct:[id number] Age/Sex: 74 / FADM Date: 10/18/24 Loc: HO.US Attending Dr: Jenifer Chi DO Ordering Physician: Jenifer Chi DO Date of Service: 10/18/24 Procedure(s): US carotid duplex BI Accession Number(s): [id number] cc: Jenifer Chi DO Reason for Exam: [...] Simba Tracey MD 10/18/2024 11:44 AM EDT RP Dictated By: Simba Toro MD Signed By: <Electronically signed by Simba Fitzgerald MDin OV> 10/18/24 1144 DD/ 1109 TD/TT: 10/18/24 1127 Director Reactor Projects: Jenifer Chi DO CV VASCULAR PROCEDURES Final Result [facility] [address] [place] [address] [phone] * (ABNORMAL) POCT HGB A1C (09/06/2024 12:33 PM EDT) Pathologist [facility] Hemoglobin A1C 6.4(A) 4.0 - 5.7 % Blood 09/06/2024 12:3 3 PM EDT Jenifer Chi DO POINT OF CARE TEST ENTER/WOOD T ORDERABLES Final Result * (ABNORMAL) Lipid Panel, Standard (05/21/2024 10:24 AM EDT) Pathologist [facility] Triglycerides 161(H) <150 mg/dL [facility] Comment:Desirable Triglyceri de: less than 150 mg/dLBorderline High Triglyceride 150-199 mg/dLHigh Triglyceride: 200-499 mg/dLVery High Triglyceride: greater than or equal to 5OO mg/dL Cholesterol 161 <200 mg/dL [facility] Comment:Desirable Cholestero l: less than 200 mg/dLBorderline High Cholesterol: 200-239 mg/dLHigh Cholesterol: greater than 239 mg/dL LDL Cholesterol Calculated 90 <100 mg/dL [facility] Comment:Desirable LDL: less than 100 mg/dLNear Optimal/Above Optimal LDL: 110- 129 mg/dLBorderline High LDL: 130-159 mg/dLHigh LDL: 160-189 mg/dLVery High LDL: greater than or equal to 190 mg/dL HDL Cholesterol 39(L) >40 mg/dL [facility] Comment:Desirable HDL: great er than 40 mg/dL Note: This HDL assay may give artificially low results in patients with liver disease. 05/21/2024 10:2 4 AM EDT 05/21/2024 11:07 AM EDT Jenifer Chi DO LAB BLOOD ORDERABLES Final R esult Performing Organization Address City/[facility] Co de Phone Number [facility] [address] [place] [phone] * Albumin, Random Urine W/Creatinine (11/10/2023 10:25 AM EDT) Creatinine, Urine 280.99 mg/dL [facility] Microalbumin Urine 26.0 mg/L [facility] Microalbum Creatinine Ratio Ur 9.2 <30 ug/mg cr [facility] Comment:Albumin/Creatinine R atio Reference Ranges: Normal: < 30 ug/mg creatinine Microalbuminuria: 30 - 300 ug/mg creatinineClinical Albuminuria: > 300 ug/mg creatinine Urine (Urine, Random) 11/10/2023 10:25 AM EDT 11/10/2023 11:42 AM EDT Jenifer Chi DO LAB URINE ORDERABLES Final R esult Performing Organization Address City/[facility] Co de Phone Number [facility] [address] [place] [address] [phone] * Hepatitis C Antibody with Reflex to HCV, RNA, Quantitative, Real-Time PCR (11/10/2023 10:21 AM EDT) Hepatitis C Antibody Nonreactive Nonreactive [facility] Comment:Antibodies to HCV no t detected; does not exclude early acuteHCV infection. Blood Venous blood specimen / Unknown 11/10/2023 10:21 AM EDT 11/10/2023 11:51 AM EDT Jenifer Chi DO LAB BLOOD ORDERABLES Final R esult [facility] [address] [place] [address] [phone] from Last 3 Months or Most Recently Relevant to [place] [id number] [facility] STANDARD Care Teams Market Research Worker Relationship Specialty Start Date End Date Jenifer Chi DO [address] [place] [address] PCP - General Family Medicine 11/10/23 Sherrill Franklin, Josefa [address] [place] [address] Pharmacist Internal Medicine 11/17/23 [facility] 09/25/24
--- OUTSIDE RECORDS SUMMARY | 2024-11-22 20:00 | XMS_ITS | Clinical Summary ---
Author Organization Unknown Care Team Providers Care Vendor Relationship Manager Name Role Phone TOBY CHACON, ARTEM Unavailable Unavailable KATIE MEDINA, RICHAR Unavailable Unavailable FORTUNE PT, DENNIS Unavailable Unavailable [facility] OT, MATY Unavailable Unavailable Payers Payer Name Policy Type Policy Number Effective Date Expira tion Date MEDICARE - [place] - PDGM [id number] Problems Condition Name Condition Details Condition Category Status Onset Date Resolution Date Last Treatment Date Treating Clinician Comments ENCOUNTER FOR ORTHOPEDIC AFTERCARE FOLLOWING SURGICAL AMP Active 02-14 00:00: 00 TYPE 2 DIABETES MELLITUS WITH OTHER SPECIFIED COMPLICATION Active 02-14 00:00: 00 OSTEOMYELITI S, UNSPECIFIED Active 02-14 00:00: 00 METHICILLIN SUSCEP STAPH INFCT CAUSING DIS CLASSD ELSWHR Active 02-14 00:00: 00 OTH BACTERIAL AGENTS THE CAUSE OF DISEASES CLASSD ELSWHR Active 02-14 00:00: 00 ACQUIRED ABSENCE OF RIGHT GREAT TOE Active 02-14 00:00: 00 ACQUIRED ABSENCE OF OTHER RIGHT TOE(S) Active 02-14 00:00: 00 TYPE 2 DIABETES MELLITUS WITH DIABETIC NEUROPATHY, UNSP Active 02-14 00:00: 00 TYPE 2 DIABETES W DIABETIC PERIPHERAL ANGIOPATH W/O GANGRENE Active 02-14 00:00: 00 ESSENTIAL (PRIMARY) HYPERTENSION Active 02-14 00:00: 00 HYPERLIPIDEM IA, UNSPECIFIED Active 02-14 00:00: 00 PRIMARY GENERALIZED (OSTEO)ARTHR ITIS Active 02-14 00:00: 00 OTHER CHRONIC PAIN Active 02-14 00:00: 00 CERVICALGIA Active 02-14 00:00: 00 OTH DISRD OF BONE DENSITY AND STRUCTURE, UNSPECIFIED SITE Active 02-14 00:00: 00 REDRAWER (CURRENT) USE OF ASPIRIN Active 02-14 00:00: 00 REDRAWER (CURRENT) USE OF ORAL HYPOGLYCEMIC DRUGS Active 02-14 00:00: 00 LNG TRM (CRNT) USE INJECTABLE NON-INSULIN ANTIDIABETIC DRUGS Active 02-14 00:00: 00 Problems related to health literacy Active 02-14 00:00: 00 Allergies, Adverse Reactions, Alerts Allergy Name Allergy Type Status Severity Reaction(s) Onset Date Inactive Date Treating Clinician Comments NKA Propensity to adverse reactions Active 2024-09 14:03:5 9 Medications Ordered Medication Name Filled Medication Name Start Date Stop Date Current Medication? Ordering Clinician Indication Dosage Frequency Signature (SIG) Comments Components amlodipine 10 mg tablet 09-07 00:00: 00 Yes [id number] 1 tablet DAILY 1 tablet DAILY (route: oral) Med Classific ation: Cardiovas cular Therapy Agents atorvastati n 80 mg tablet 09-07 00:00: 00 Yes [id number] 1 tablet DAILY 1 tablet DAILY (route: oral) Med Classific ation: Cardiovas cular Therapy Agents duloxetine 60 mg capsule,del ayed release 09-07 00:00: 00 Yes [id number] 60 mg DAILY 60 mg DAILY (route: oral) Med Classific ation: Central Nervous System Agents gabapentin 400 mg capsule 09-07 00:00: 00 Yes [id number] 1 capsule DAILY 1 capsule DAILY (route: oral) Med Classific ation: Central Nervous System Agents losartan 100 mg tablet 09-07 00:00: 00 Yes [id number] 1 tablet DAILY 1 tablet DAILY (route: oral) Med Classific ation: Cardiovas cular Therapy Agents metoprolol succinate ER 50 mg tablet,exte nded release 24 hr 09-07 00:00: 00 Yes [id number] 1 tablet DAILY 1 tablet DAILY (route: oral) Med Classific ation: Cardiovas cular Therapy Agents metformin 1,000 mg tablet 09-06 00:00: 00 Yes [id number] 1 tablet DAILY 1 tablet DAILY (route: oral) Med Classific ation: Endocrine Ozempic 1 mg/dose (4 mg/3 mL) subcutaneou s pen injector 7-24 00:00: 00 Yes [id number] 1 mg WEEKLY 1 mg WEEKLY (route: subcutaneo us) Med Classific ation: Endocrine amoxicillin 875 mg-potassiu m clavulanate 125 mg tablet 09-21 00:00: 00 09-28 23:59 :00 No [id number] 1 tablet 2 TIMES DAILY 1 tablet 2 TIMES DAILY (route: oral) Med Classific ation: Anti-Infe ctive Agents aspirin 81 mg tablet 09-25 00:00: 00 Yes [id number] 1 tablet DAILY 1 tablet DAILY (route: oral) Med Classific ation: Hematolog ical Agents Cozaar 100 mg tablet 09-25 00:00: 00 Yes [id number] 1 tablet DAILY 1 tablet DAILY (route: oral) Med Classific ation: Cardiovas cular Therapy Agents doxycycline hyclate 100 mg capsule 09-21 00:00: 00 09-28 23:59 :00 No [id number] 1 capsule 2 TIMES DAILY 1 capsule 2 TIMES DAILY (route: oral) Med Classific ation: Anti-Infe ctive Agents meclizine 25 mg tablet 09-25 00:00: 00 Yes [id number] 1 tablet NEEDED 1 tablet NEEDED (route: oral) Med Classific ation: Gastroint estinal Therapy Agents Saccharomyc es boulardii 250 mg capsule -12 00:00: 00 Yes [id number] 1 capsule DAILY 1 capsule DAILY (route: oral) Med Classific ation: Gastroint estinal Therapy Agents docusate sodium 100 mg capsule 09-21 00:00: 00 Yes [id number] 1 capsule DAILY 1 capsule DAILY (route: oral) Med Classific ation: Gastroint estinal Therapy Agents FiberCon 625 mg tablet 8-08 00:00: 00 Yes [id number] 1 tablet 2 TIMES DAILY 1 tablet 2 TIMES DAILY (route: oral) Med Classific ation: Gastroint estinal Therapy Agents oxycodone 5 mg tablet 09-21 00:00: 00 Yes [id number] 1 tablet NEEDED 1 tablet NEEDED (route: oral) Med Classific ation: Analgesic , Anti-infl ammatory or Antipyret ic Immunizations Ordered Immunization Name Filled Immunization Name Date Status Comments Refusal Reason INFLUENZA, TIV (INACTIVATED) 2023-12-07 00:00:00 COVID-19, COVID-19 2021-09-30 00:00:00 PNEUMOCOCCAL (PPV), PPV 2020-10-01 00:00:00 Vital Signs Vital Name Observation Time Observation Value Commen ts Temperature 2024-11-12 12:28:00.000 98.6 [degF] Temperature 2024-11-05 11:15:00.000 97.9 [degF] Temperature 2024-10-29 10:55:00.000 97.1 [degF] Temperature 2024-10-22 22:38:00.000 97.8 [degF] Temperature 2024-10-19 10:18:00.000 97.3 [degF] Temperature 2024-10-18 09:37:00.000 97.4 [degF] Temperature 2024-10-17 11:51:00.000 97.3 [degF] Temperature 2024-10-12 15:45:00.000 97.5 [degF] Temperature 2024-10-11 09:59:00.000 97.2 [degF] Temperature 2024-10-10 11:55:00.000 98 [degF] Temperature 2024-10-10 11:39:00.000 97.3 [degF] Temperature 2024-10-05 11:45:00.000 97.4 [degF] Temperature 2024-10-05 11:19:00.000 97.9 [degF] Temperature 2024-10-03 11:42:00.000 97.3 [degF] Temperature 2024-10-02 10:06:00.000 98.2 [degF] Temperature 2024-09-27 12:23:00.000 98.1 [degF] Temperature 2024-09-27 11:43:00.000 97.1 [degF] Temperature 2024-09-25 14:18:00.000 97.9 [degF] BMI (%) 2024-09-25 14:18:00.000 28 kg/m2 Height 2024-09-25 14:18:00.000 64 [in_us] Pulse 2024-11-12 12:28:00.000 86 /min Pulse 2024-11-05 11:15:00.000 85 /min Pulse 2024-10-29 10:55:00.000 66 /min Pulse 2024-10-22 22:38:00.000 78 /min Pulse 2024-10-19 10:18:00.000 92 /min Pulse 2024-10-18 09:37:00.000 98 /min Pulse 2024-10-17 11:51:00.000 98 /min Pulse 2024-10-12 15:45:00.000 60 /min Pulse 2024-10-11 09:59:00.000 95 /min Pulse 2024-10-10 11:55:00.000 76 /min Pulse 2024-10-10 11:39:00.000 93 /min Pulse 2024-10-05 11:45:00.000 97 /min Pulse 2024-10-05 11:19:00.000 68 /min Pulse 2024-10-03 11:42:00.000 91 /min Pulse 2024-10-02 10:06:00.000 84 /min Pulse 2024-09-27 12:23:00.000 78 /min Pulse 2024-09-27 11:43:00.000 83 /min Pulse 2024-09-25 14:18:00.000 85 /min O2 Saturation (%) 2024-11-12 12:28:00.000 98 % O2 Saturation (%) 2024-11-05 11:15:00.000 100 % O2 Saturation (%) 2024-10-29 10:55:00.000 98 % O2 Saturation (%) 2024-10-22 22:38:00.000 96 % O2 Saturation (%) 2024-10-19 10:18:00.000 99 % O2 Saturation (%) 2024-10-12 15:45:00.000 97 % O2 Saturation (%) 2024-10-10 11:55:00.000 98 % O2 Saturation (%) 2024-10-05 11:45:00.000 99 % O2 Saturation (%) 2024-10-05 11:19:00.000 98 % O2 Saturation (%) 2024-10-03 11:42:00.000 99 % O2 Saturation (%) 2024-10-02 10:06:00.000 100 % O2 Saturation (%) 2024-09-27 12:23:00.000 94 % O2 Saturation (%) 2024-09-27 11:43:00.000 91 % O2 Saturation (%) 2024-09-25 14:18:00.000 95 % Respirations 2024-11-12 12:28:00.000 20 /min Respirations 2024-11-05 11:15:00.000 20 /min Respirations 2024-10-29 10:55:00.000 18 /min Respirations 2024-10-22 22:38:00.000 20 /min Respirations 2024-10-19 10:18:00.000 20 /min Respirations 2024-10-18 09:37:00.000 18 /min Respirations 2024-10-17 11:51:00.000 18 /min Respirations 2024-10-12 15:45:00.000 18 /min Respirations 2024-10-11 09:59:00.000 18 /min Respirations 2024-10-10 11:55:00.000 20 /min Respirations 2024-10-10 11:39:00.000 18 /min Respirations 2024-10-05 11:45:00.000 18 /min Respirations 2024-10-05 11:19:00.000 20 /min Respirations 2024-10-03 11:42:00.000 18 /min Respirations 2024-10-02 10:06:00.000 18 /min Respirations 2024-09-27 12:23:00.000 20 /min Respirations 2024-09-27 11:43:00.000 18 /min Respirations 2024-09-25 14:18:00.000 18 /min Weight (lbs) 2024-09-25 14:18:00.000 167 [lb_av] Systolic Blood Pressure 2024-11-12 12:28:00.000 110 mm [Hg] Systolic Blood Pressure 2024-11-05 11:15:00.000 120 mm [Hg] Systolic Blood Pressure 2024-10-29 10:55:00.000 136 mm [Hg] Systolic Blood Pressure 2024-10-22 22:38:00.000 128 mm [Hg] Systolic Blood Pressure 2024-10-19 10:24:00.000 82 mm[ Hg] Systolic Blood Pressure 2024-10-19 10:23:00.000 112 mm [Hg] Systolic Blood Pressure 2024-10-19 10:20:00.000 120 mm [Hg] Systolic Blood Pressure 2024-10-19 10:18:00.000 110 mm [Hg] Systolic Blood Pressure 2024-10-18 09:48:00.000 159 mm [Hg] Systolic Blood Pressure 2024-10-18 09:37:00.000 153 mm [Hg] Systolic Blood Pressure 2024-10-17 11:51:00.000 136 mm [Hg] Systolic Blood Pressure 2024-10-12 15:45:00.000 124 mm [Hg] Systolic Blood Pressure 2024-10-11 09:59:00.000 142 mm [Hg] Systolic Blood Pressure 2024-10-10 11:55:00.000 122 mm [Hg] Systolic Blood Pressure 2024-10-10 11:39:00.000 149 mm [Hg] Systolic Blood Pressure 2024-10-05 11:45:00.000 118 mm [Hg] Systolic Blood Pressure 2024-10-05 11:19:00.000 110 mm [Hg] Systolic Blood Pressure 2024-10-03 11:42:00.000 138 mm [Hg] Systolic Blood Pressure 2024-10-02 10:06:00.000 126 mm [Hg] Systolic Blood Pressure 2024-09-27 12:23:00.000 112 mm [Hg] Systolic Blood Pressure 2024-09-25 14:18:00.000 122 mm [Hg] Diastolic Blood Pressure 2024-11-12 12:28:00.000 68 mm [Hg] Diastolic Blood Pressure 2024-11-05 11:15:00.000 82 mm [Hg] Diastolic Blood Pressure 2024-10-29 10:55:00.000 70 mm [Hg] Diastolic Blood Pressure 2024-10-22 22:38:00.000 80 mm [Hg] Diastolic Blood Pressure 2024-10-19 10:24:00.000 62 mm [Hg] Diastolic Blood Pressure 2024-10-19 10:23:00.000 72 mm [Hg] Diastolic Blood Pressure 2024-10-19 10:20:00.000 90 mm [Hg] Diastolic Blood Pressure 2024-10-19 10:18:00.000 82 mm [Hg] Diastolic Blood Pressure 2024-10-18 09:48:00.000 94 mm [Hg] Diastolic Blood Pressure 2024-10-18 09:37:00.000 95 mm [Hg] Diastolic Blood Pressure 2024-10-17 11:51:00.000 75 mm [Hg] Diastolic Blood Pressure 2024-10-12 15:45:00.000 70 mm [Hg] Diastolic Blood Pressure 2024-10-11 09:59:00.000 88 mm [Hg] Diastolic Blood Pressure 2024-10-10 11:55:00.000 64 mm [Hg] Diastolic Blood Pressure 2024-10-10 11:39:00.000 83 mm [Hg] Diastolic Blood Pressure 2024-10-05 11:45:00.000 75 mm [Hg] Diastolic Blood Pressure 2024-10-05 11:19:00.000 60 mm [Hg] Diastolic Blood Pressure 2024-10-03 11:42:00.000 85 mm [Hg] Diastolic Blood Pressure 2024-10-02 10:06:00.000 70 mm [Hg] Diastolic Blood Pressure 2024-09-27 12:23:00.000 78 mm [Hg] Diastolic Blood Pressure 2024-09-25 14:18:00.000 68 mm [Hg] Plan of Treatment Planned Activity Planned Date Details Comments Future Scheduled Test SKILLED NU RSE TO EVALUATE PATIENT, IDENTIFY PRIMARY AND CO-MORBID CONDITIONS CODED PER CODING GUIDELINES, AND DEVELOP PATIENT SPECIFIC PLAN OF CARE THAT INCLUDES PATIENT GOAL FOR HOME HEALTH. [code = SKILLED NURSE TO EVALUATE PATIENT, IDENTIFY PRIMARY AND CO-MORBID CONDITIONS CODED PER CODING GUIDELINES, AND DEVELOP PATIENT SPECIFIC PLAN OF CARE THAT INCLUDES PATIENT GOAL FOR HOME HEALTH.] Future Scheduled Test OCCUPATION AL THERAPIST TO EVALUATE PATIENT FOR FUNCTION IN ADLS [code = OCCUPATIONAL THERAPIST TO EVALUATE PATIENT FOR FUNCTION IN ADLS] Future Scheduled Test SKILLED NU RSE FOR O/A AND SKILLED TEACHING RELATED TO SIGNS AND SYMPTOMS OF INFECTION AND INFECTION CONTROL MEASURES. [code = SKILLED NURSE FOR O/A AND SKILLED TEACHING RELATED TO SIGNS AND SYMPTOMS OF INFECTION AND INFECTION CONTROL MEASURES.] Future Scheduled Test NEED FOR S KILLED TEACHING AND INTERVENTION RELATED TO NEW SURGICAL SITE TO RIGHT BIG TOE AND RIGHT FIFTH TOE SKILLED NURSE TO ASSESS FOR SIGNS AND SYMPTOMS OF INFECTION, INCLUDING INCREASED DRAINAGE, INCREASED SWELLING, INCREASED ERYTHEMA, OR DEHISCENCE OF WOUND. CHANGES IN STATUS TO BE REPORTED TO PHYSICIAN. [code = NEED FOR SKILLED TEACHING AND INTERVENTION RELATED TO NEW SURGICAL SITE TO RIGHT BIG TOE AND RIGHT FIFTH TOE SKILLED NURSE TO ASSESS FOR SIGNS AND SYMPTOMS OF INFECTION, INCLUDING INCREASED DRAINAGE, INCREASED SWELLING, INCREASED ERYTHEMA, OR DEHISCENCE OF WOUND. CHANGES IN STATUS TO BE REPORTED TO PHYSICIAN.] Future Scheduled Test SKILLED NU RSE TO OBTAIN BLOOD SUGAR PRN FOR SIGNS AND SYMPTOMS OF HYPO/HYPERGLYCEMIA. IF OBTAINED BY PATIENT/CAREGIVER PRIOR TO VISIT AND PATIENT IS NOT SYMPTOMATIC, SKILLED NURSE TO RECORD READING FROM PATIENT LOG. [code = SKILLED NURSE TO OBTAIN BLOOD SUGAR PRN FOR SIGNS AND SYMPTOMS OF HYPO/HYPERGLYCEMIA. IF OBTAINED BY PATIENT/CAREGIVER PRIOR TO VISIT AND PATIENT IS NOT SYMPTOMATIC, SKILLED NURSE TO RECORD READING FROM PATIENT LOG.] Future Scheduled Test SKILLED NU RSE FOR O/A AND SKILLED TEACHING IN MANAGEMENT OF CIRCULATORY/VASCULAR DISEASE. [code = SKILLED NURSE FOR O/A AND SKILLED TEACHING IN MANAGEMENT OF CIRCULATORY/VASCULAR DISEASE.] Future Scheduled Test PHYSICAL T HERAPIST TO EVALUATE PATIENT FOR SAFETY AND MOBILITY ENHANCEMENT/EDUCATION [code = PHYSICAL THERAPIST TO EVALUATE PATIENT FOR SAFETY AND MOBILITY ENHANCEMENT/EDUCATION] Future Scheduled Test SKILLED NU RSE TO PROVIDE TEACHING ON SIGNS AND SYMPTOMS AND MANAGEMENT OF HYPERTENSION. [code = SKILLED NURSE TO PROVIDE TEACHING ON SIGNS AND SYMPTOMS AND MANAGEMENT OF HYPERTENSION.] Future Scheduled Test SKILLED NU RSE FOR O/A AND TEACHING OF DIABETIC MANAGEMENT INCLUDING BLOOD SUGAR MONITORING/USE OF GLUCOMETER, DIABETIC DIET, LOWER EXTREMITY SKIN INSPECTION, PROPER SKIN/FOOT CARE, AND SIGNS AND SYMPTOMS HYPO/HYPERGLYCEMIA TO REPORT. 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 SKILLED NURSE TO ESTABLISH SUPPORT MEASURES TO MINIMIZE RISK OF HOSPITALIZATION AND ED USE, AND INSTRUCT PATIENT/CAREGIVER ON METHODS TO REDUCE AVOIDABLE HOSPITALIZATION AND ED USE. [code = PATIENT HAS A RISK OF HOSPITALIZATION AND ED USE. SKILLED NURSE TO ESTABLISH SUPPORT MEASURES TO MINIMIZE RISK OF HOSPITALIZATION AND ED USE, AND INSTRUCT PATIENT/CAREGIVER ON METHODS TO REDUCE AVOIDABLE HOSPITALIZATION AND ED USE.] Future Scheduled Test SKILLED NU RSE TO PERFORM ENVIRONMENTAL SAFETY RISK ASSESSMENT AND FALL RISK ASSESSMENT AND PROVIDE INSTRUCTION TO IMPLEMENT ENVIRONMENTAL SAFETY AND FALL PREVENTION STRATEGIES THROUGHOUT THE CERTIFICATION PERIOD. SKILLED NURSE WILL MAINTAIN SITUATIONAL AWARENESS AND WILL NOTIFY CLINICAL TUTORING CLINICIAN AND PHYSICIAN/PROVIDER WITH ANY CHANGE IN CONDITION. [code = SKILLED NURSE TO PERFORM ENVIRONMENTAL SAFETY RISK ASSESSMENT AND FALL RISK ASSESSMENT AND PROVIDE INSTRUCTION TO IMPLEMENT ENVIRONMENTAL SAFETY AND FALL PREVENTION STRATEGIES THROUGHOUT THE CERTIFICATION PERIOD. SKILLED NURSE WILL MAINTAIN SITUATIONAL AWARENESS AND WILL NOTIFY CLINICAL TUTORING CLINICIAN AND PHYSICIAN/PROVIDER WITH ANY CHANGE IN CONDITION.] Future Scheduled Test SKILLED NU RSE FOR OBSERVATION AND ASSESSMENT OF PATIENT S PAIN LEVEL AND EFFECTIVENESS OF PAIN MANAGEMENT REGIMEN. SKILLED NURSE TO INSTRUCT PATIENT/CAREGIVER REGARDING PHARMACOLOGIC AND NON-PHARMACOLOGIC PAIN CONTROL MEASURES. SKILLED NURSE TO REPORT TO PHYSICIAN IF PAIN LEVEL IS OUTSIDE OF ESTABLISHED PARAMETERS. [code = SKILLED NURSE FOR OBSERVATION AND ASSESSMENT OF PATIENT S PAIN LEVEL AND EFFECTIVENESS OF PAIN MANAGEMENT REGIMEN. SKILLED NURSE TO INSTRUCT PATIENT/CAREGIVER REGARDING PHARMACOLOGIC AND NON-PHARMACOLOGIC PAIN CONTROL MEASURES. SKILLED NURSE TO REPORT TO PHYSICIAN IF PAIN LEVEL IS OUTSIDE OF ESTABLISHED PARAMETERS.] Future Scheduled Test SKILLED NU RSE TO ASSESS PATIENT'S SKIN INTEGRITY AND INSTRUCT PATIENT/CAREGIVER ON MEASURES TO PREVENT PRESSURE ULCERS. [code = SKILLED NURSE TO ASSESS PATIENT'S SKIN INTEGRITY AND INSTRUCT PATIENT/CAREGIVER ON MEASURES TO PREVENT PRESSURE ULCERS.] Future Scheduled Test SKILLED NU RSE TO INSTRUCT PATIENT/CAREGIVER ON S/S OF NEUROPATHY AND METHODS TO MANAGE. [code = SKILLED NURSE TO INSTRUCT PATIENT/CAREGIVER ON S/S OF NEUROPATHY AND METHODS TO MANAGE.] Future Scheduled Test SKILLED NU RSE TO REVIEW PATIENT MEDICATIONS (PRESCRIPTION/OTC). INSTRUCT PATIENT/CAREGIVER ON ALL MEDICATIONS INCLUDING PURPOSE, WHEN TO TAKE, IMPORTANCE OF MEDICATION ADHERENCE, MONITORING OF EFFECTIVENESS, ADVERSE DRUG REACTIONS, POSSIBLE SIDE EFFECTS, AND WHEN TO NOTIFY AGENCY OR PHYSICIAN/PROVIDER OF ANY CONCERNS. [code = SKILLED NURSE TO REVIEW PATIENT MEDICATIONS (PRESCRIPTION/OTC). INSTRUCT PATIENT/CAREGIVER ON ALL MEDICATIONS INCLUDING PURPOSE, WHEN TO TAKE, IMPORTANCE OF MEDICATION ADHERENCE, MONITORING OF EFFECTIVENESS, ADVERSE DRUG REACTIONS, POSSIBLE SIDE EFFECTS, AND WHEN TO NOTIFY AGENCY OR PHYSICIAN/PROVIDER OF ANY CONCERNS.] Future Scheduled Test PHYSICAL T HERAPIST TO EVALUATE PATIENT SECONDARY TO FUNCTIONAL DEFICITS/SAFETY CONCERNS. PHYSICAL THERAPY TO ESTABLISH /UPGRADE/DOWNGRADE THERAPEUTIC EXERCISE PROGRAM AND INSTRUCT PATIENT/CAREGIVER ON EXERCISE PRECAUTIONS WITH WRITTEN HOME PROGRAM. MAY INCLUDE AROM, RROM APPROPRIATE TO IMPROVE FUNCTIONAL STRENGTH AND RANGE OF MOTION. PHYSICAL THERAPY TO INSTRUCT PATIENT/CAREGIVER ON SAFE TRANSFER TECHNIQUES USING PROPER BODY MECHANICS AND EQUIPMENT. PHYSICAL THERAPY TO INSTRUCT PATIENT/CAREGIVER ON GAIT TRAINING TECHNIQUES USING APPROPRIATE ASSISTIVE DEVICE, PROPER BODY MECHANICS TO IMPROVE MOBILITY, AND PREVENT INJURY OF PATIENT AND/OR CAREGIVER. SUMMARY OF THERAPY EVAL/ASSESSMENT FINDINGS AND REASON(S) SKILLS OF A THERAPIST ARE INDICATED: HOME SKILLED PHYSICAL THERAPY EVALUATION COMPLETED ON 09/27/24 PATIENT GOAL - RETURN TO PLOF. BE ABLE TO WALK INDEPENDENTLY PATIENT IS MONEGASQUE SPEAKING ONLY. DAUGHTER PRESENT FOR THE VISIT. USED LANGUAGE LINE STAFF TO ASSIST WITH TRANSLATION PMH INCLUDES BUT NOT LIMITED TO:HTN, HLD, DIABETES, PAD, OA DME INCLUDES BUT NOT LIMITED TO: ROLLATOR WALKER, TUB CHAIR, GRAB BARS BY TUB PLOF - INDEPENDENT WITH AMBULATION AND ADLS CLOF - CGA WITH SIT TO STAND TRANSFERS; CGA TO MIN ASSIST WITH AMBULATION. STS GAIT. UNSTEADY AT TIMES. ASSIST WITH ADLS EDEMA - NA PAIN RIGHT FOOT - SPECIFICALLY BIG TOE AND 5TH TOE. 4-5/10 ACHE; INTERMITTENT BILATERAL KNEE ACHE LE STRENGTH: TESTED IN SITTING HIP FLEX - 4-/5 QUAD 4+ TO 5/5 HAMSTRING 4+ SPECIAL TESTS- 30 SEC SIT TO STAND - 0 REPS TUG - NOT SAFE TO PERFORM EDUCATION: RE 1. ELEVATION OF LE'S IN SITTING TO PREVENT SWELLING. ANKLE PUMPS TO ASSIST WITH CIRCULATION 2. PAIN MANAGEMENT - DISCUSSED NON-PHARMCOLOGICAL METHODS 3.HE- - SITTING LE AROM EXERCISES - HIP FLEX, LAQS, AND ANKLE PUMPS - 10 REPS 2-3/DAY 4. SIT TO STAND TRANSFER TRAINING 5. HOME SAFETY/FALL PREVENTION 6. AMBULATION TRAINING WITH ROLLATOR WALKER ( WALKER WAS NOT BEING USED) PATIENT IS A GOOD CANDIDATE FOR HOME SKILLED PHYSICAL THERAPY IN ORDER TO ADDRESS HER CURRENT IMPAIRMENTS AND IMPROVE HER FUNCTIONAL MOBILITY. CALLED PCP OFFICE AND SPOKE TO PRISCILLA @ 215 PM REQUESTING HOME SKILLED PT 2/WK FOR UP TO 3WEEKS STARTING WK OF 09/30/24 THERAPIST TO REVIEW PATIENT MEDICATIONS (PRESCRIPTION/OTC). INSTRUCT PATIENT/CAREGIVER ON ALL MEDICATIONS INCLUDING PURPOSE, WHEN TO TAKE, IMPORTANCE OF MEDICATION ADHERENCE, MONITORING OF EFFECTIVENESS, ADVERSE DRUG EVENTS, POSSIBLE SIDE EFFECTS, AND WHEN TO NOTIFY AGENCY OR PHYSICIAN/PROVIDER OF ANY CONCERNS. THERAPIST TO PROVIDE FUNCTIONAL STRATEGIES/TECHNIQUES FOR MANAGING MEDICATIONS. [code = PHYSICAL THERAPIST TO EVALUATE PATIENT SECONDARY TO FUNCTIONAL DEFICITS/SAFETY CONCERNS. PHYSICAL THERAPY TO ESTABLISH /UPGRADE/DOWNGRADE THERAPEUTIC EXERCISE PROGRAM AND INSTRUCT PATIENT/CAREGIVER ON EXERCISE PRECAUTIONS WITH WRITTEN HOME PROGRAM. MAY INCLUDE AROM, RROM APPROPRIATE TO IMPROVE FUNCTIONAL STRENGTH AND RANGE OF MOTION. PHYSICAL THERAPY TO INSTRUCT PATIENT/CAREGIVER ON SAFE TRANSFER TECHNIQUES USING PROPER BODY MECHANICS AND EQUIPMENT. PHYSICAL THERAPY TO INSTRUCT PATIENT/CAREGIVER ON GAIT TRAINING TECHNIQUES USING APPROPRIATE ASSISTIVE DEVICE, PROPER BODY MECHANICS TO IMPROVE MOBILITY, AND PREVENT INJURY OF PATIENT AND/OR CAREGIVER. SUMMARY OF THERAPY EVAL/ASSESSMENT FINDINGS AND REASON(S) SKILLS OF A THERAPIST ARE INDICATED: HOME SKILLED PHYSICAL THERAPY EVALUATION COMPLETED ON 09/27/24 PATIENT GOAL - RETURN TO PLOF. BE ABLE TO WALK INDEPENDENTLY PATIENT IS MONEGASQUE SPEAKING ONLY. DAUGHTER PRESENT FOR THE VISIT. USED LANGUAGE LINE STAFF TO ASSIST WITH TRANSLATION PMH INCLUDES BUT NOT LIMITED TO:HTN, HLD, DIABETES, PAD, OA DME INCLUDES BUT NOT LIMITED TO: ROLLATOR WALKER, TUB CHAIR, GRAB BARS BY TUB PLOF - INDEPENDENT WITH AMBULATION AND ADLS CLOF - CGA WITH SIT TO STAND TRANSFERS; CGA TO MIN ASSIST WITH AMBULATION. STS GAIT. UNSTEADY AT TIMES. ASSIST WITH ADLS EDEMA - NA PAIN RIGHT FOOT - SPECIFICALLY BIG TOE AND 5TH TOE. 4-5/10 ACHE; INTERMITTENT BILATERAL KNEE ACHE LE STRENGTH: TESTED IN SITTING HIP FLEX - 4-/5 QUAD 4+ TO 5/5 HAMSTRING 4+ SPECIAL TESTS- 30 SEC SIT TO STAND - 0 REPS TUG - NOT SAFE TO PERFORM EDUCATION: RE 1. ELEVATION OF LE'S IN SITTING TO PREVENT SWELLING. ANKLE PUMPS TO ASSIST WITH CIRCULATION 2. PAIN MANAGEMENT - DISCUSSED NON-PHARMCOLOGICAL METHODS 3.HE- - SITTING LE AROM EXERCISES - HIP FLEX, LAQS, AND ANKLE PUMPS - 10 REPS 2-3/DAY 4. SIT TO STAND TRANSFER TRAINING 5. HOME SAFETY/FALL PREVENTION 6. AMBULATION TRAINING WITH ROLLATOR WALKER ( WALKER WAS NOT BEING USED) PATIENT IS A GOOD CANDIDATE FOR HOME SKILLED PHYSICAL THERAPY IN ORDER TO ADDRESS HER CURRENT IMPAIRMENTS AND IMPROVE HER FUNCTIONAL MOBILITY. CALLED PCP OFFICE AND SPOKE TO SONIASHREE @ 215 PM REQUESTING HOME SKILLED PT 2/WK FOR UP TO 3WEEKS STARTING WK OF 09/30/24 THERAPIST TO REVIEW PATIENT MEDICATIONS (PRESCRIPTION/OTC). INSTRUCT PATIENT/CAREGIVER ON ALL MEDICATIONS INCLUDING PURPOSE, WHEN TO TAKE, IMPORTANCE OF MEDICATION ADHERENCE, MONITORING OF EFFECTIVENESS, ADVERSE DRUG EVENTS, POSSIBLE SIDE EFFECTS, AND WHEN TO NOTIFY AGENCY OR PHYSICIAN/PROVIDER OF ANY CONCERNS. THERAPIST TO PROVIDE FUNCTIONAL STRATEGIES/TECHNIQUES FOR MANAGING MEDICATIONS.] Goal Patient Goal - B R ABLE TO CARE FOR MYSEL AGAIN Goal Provider Goal - A PLAN OF CARE WILL BE ESTABLISHED THAT MEETS PATIENT'S SHELTER NEEDS AND INCLUDES PATIENT GOAL FOR HOME HEALTH. Goal Provider Goal - OCCUPATIONAL THERAPY EVALUATION TO BE COMPLETED WITH RECOMMENDATIONS AND WRITTEN PLAN OF TREATMENT ESTABLISHED FOR THE PHYSICIAN S SIGNATURE. Goal Provider Goal - PATIENT/CAREGIVER WILL VERBALIZE/DEMONSTRATE UNDERSTANDING OF S/S OF INFECTION AND INFECTION CONTROL MEASURES. SIGNS AND SYMPTOMS OF INFECTION WILL BE IDENTIFIED AND PHYSICIAN NOTIFIED FOR PROMPT INTERVENTION THROUGHOUT THE CERTIFICATION PERIOD. Goal Provider Goal - WOUND CARE WILL BE COMPLETED AND PATIENT WILL HAVE IMPROVED WOUND STATUS EVIDENCED BY NO SIGNS AND SYMPTOMS OF INFECTION, DECREASED WOUND SIZE, AND/OR NO COMPLICATIONS BY THE END OF THE CERTIFICATION PERIOD. Goal Provider Goal - BLOOD SUGAR READING WILL BE OBTAINED ORDERED THROUGHOUT CERTIFICATION PERIOD. Goal Provider Goal - PATIENT/CAREGIVER WILL VERBALIZE/DEMONSTRATE THE ABILITY TO MANAGE VASCULAR/CIRCULATORY DISEASE PROCESS AND EXACERBATIONS WILL BE IDENTIFIED FOR EARLY INTERVENTION THROUGHOUT THE CERTIFICATION PERIOD. Goal Provider Goal - A PHYSICAL THERAPY EVALUATION TO BE COMPLETED WITH RECOMMENDATIONS AND/OR WRITTEN PLAN OF TREATMENT ESTABLISHED FOR PHYSICIAN S SIGNATURE. Goal Provider Goal - PATIENT/CAREGIVER WILL VERBALIZE SIGNS AND SYMPTOMS OF HYPERTENSION AND WILL BE ABLE TO DEMONSTRATE ABILITY TO MANAGE EXACERBATION BY END OF THE EPISODE. Goal Provider Goal - PATIENT/CAREGIVER WILL VERBALIZE/DEMONSTRATE KNOWLEDGE OF DIABETIC MANAGEMENT. CHANGES IN DIABETIC STATUS WILL BE IDENTIFIED AND REPORTED TO PHYSICIAN FOR PROMPT INTERVENTION THROUGHOUT THE CERTIFICATION PERIOD. Goal Provider Goal - PATIENT/CAREGIVER WILL VERBALIZE UNDERSTANDING OF MUSCULOSKELETAL DISEASE INCLUDING SIGNS AND SYMPTOMS, MANAGEMENT, AND PRESCRIBED TREATMENT REGIMEN BY END OF EPISODE. Goal Provider Goal - PATIENT WILL HAVE SUPPORT MEASURES ESTABLISHED TO PREVENT HOSPITALIZATION AND ED USE AND PATIENT/CAREGIVER WILL VERBALIZE/DEMONSTRATE METHODS TO REDUCE AVOIDABLE HOSPITALIZATION AND ED USE BY END OF EPISODE. Goal Provider Goal - PATIENT/CAREGIVER WILL VERBALIZE/DEMONSTRATE EFFECTIVE ENVIRONMENTAL SAFETY AND FALL PREVENTION STRATEGIES, WILL REMAIN SAFE IN THE COMMUNITY, AND WILL BE FREE OF DANGER TO SELF AND OTHERS THROUGHOUT THE CERTIFICATION PERIOD. Goal Provider Goal - PATIENT/CAREGIVER WILL DEMONSTRATE UNDERSTANDING OF PHARMACOLOGIC AND NONPHARMACOLOGIC PAIN CONTROL MEASURES AND PATIENT WILL HAVE IMPROVEMENT IN PAIN INTERFERING WITH ACTIVITY EVIDENCED BY PAIN AT A LEVEL THAT IS ACCEPTABLE TO THE PATIENT AND PAIN LEVEL WITHIN ESTABLISHED PARAMETERS BY END OF CERTIFICATION PERIOD. Goal Provider Goal - PATIENT/CAREGIVER WILL VERBALIZE UNDERSTANDING OF PRESSURE ULCER PREVENTION BY END OF THE EPISODE. Goal Provider Goal - PATIENT/CAREGIVER WILL VERBALIZE S/S OF NEUROPATHY AND METHODS TO MANAGE BY END OF CERTIFICATION PERIOD. Goal Provider Goal - PATIENT/CAREGIVER WILL VERBALIZE UNDERSTANDING OF EDUCATION PROVIDED ON MEDICATIONS BY THE END OF THE CERTIFICATION PERIOD. Goal Provider Goal - PHYSICAL THERAPY EVALUATION TO BE COMPLETED WITH RECOMMENDATIONS AND/OR WRITTEN TREATMENT PLAN OF CARE ESTABLISHED FOR THE PHYSICIAN S SIGNATURE PATIENT/CAREGIVER WILL PERFORM THERAPEUTIC EXERCISE/S AND DEMONSTRATE PARTICIPATION IN A HOME PROGRAM. PATIENT/CAREGIVER WILL DEMONSTRATE SAFE TRANSFERS USING APPROPRIATE ASSISTIVE DEVICE, BODY MECHANICS AND EQUIPMENT. PATIENT/CAREGIVER WILL DEMONSTRATE IMPROVED GAIT TECHNIQUES TO MINIMIZE RISK OF INJURY. PATIENT/CAREGIVER WILL VERBALIZE/DEMONSTRATE UNDERSTANDING OF MEDICATIONS AND STRATEGIES/TECHNIQUES FOR MEDICATION MANAGEMENT BY THE END OF THE CERTIFICATION PERIOD. Encounters Start Date/Time End Date/Time Encounter Type Admission Type Attending [facility] Care Department Encounter ID Discharge Date Discharge Status Discharge Condition Discharge Reason Percent Goals Met 2024-09-25 00:00:00 2024-11-23 00:00:00 Outpatient NEW ADMISSION KATIEYORDYRICHAR [facility] [id number] 73.68
== END 2024-11-17 08:02 | disposition home or self-care (01) ==
LOC: HO.CT 08:01
PROVIDERS: PCP Family Medicine; Visit Provider Family Medicine
DX: R42 Dizziness and giddiness (principal)
CPT/HCPCS: 70450

== ENCOUNTER 2024-11-29 14:08 | Outpatient (AMB) | payer MEDICARE, MEDICAID, SELFPAY ==
--- NOTE | 2024-11-29 14:09 | MHC.OFFVIS ---
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 Stave Hewer Required: Yes Stave Hewer Language: Stitch Welder Name: arabella diaz [id number] Culinary Specialist: Culinary Specialist Present Allergies No Known Allergies Allergy (Verified 11/29/24 14:14) Medication List - Last Reconciled 11/29/24 by Danny Aiken MD amlodipine 10 mg PO DAILY aspirin (Adult Aspirin Regimen) 81 mg PO DAILY atorvastatin (Lipitor) 80 mg PO BEDTIME duloxetine 60 mg PO DAILY gabapentin 400 mg PO DAILY losartan 100 mg PO DAILY metformin 1,000 mg PO DAILY metoprolol succinate ER 50 mg PO DAILY semaglutide (Ozempic) 1 mg subcut QWEEK HPI Comments Details: Yani is here for consultation regarding dizziness. It seems that she has longstanding diabetes and previously not well controlled. In the last few months, apparently it is better. She has lost about 25 lb or so in weight. She also has hypertension on many medications including metoprolol, amlodipine and losartan. She states that she gets sensations of getting dizzy when she gets up from a seated position. Description is suggestive of orthostatic hypotension. She also has had some heart racing type symptoms at different times. Not known to have any arrhythmias. Otherwise, no documented coronary disease or myocardial infarction or cardiomyopathy. Many comorbidities. [facility] Medical History (Updated 11/29/24 @ 15:20 by Danny Aiken MD) Osteoarthritis IBS (irritable bowel syndrome) Chronic kidney disease Retinopathy Polyneuropathy Primary hypertension Type 2 diabetes mellitus Family History Unknown No problems noted. Review of Systems ENT Reports dizziness Card Denies chest pain, Denies chest pain at rest, Denies chest pain with activity, Denies rapid heart rate, Denies pedal edema, Denies edema, Denies leg edema, Denies lightheadedness, Denies palpitations, Denies dyspnea, Denies dyspnea on exertion and Denies orthopnea Resp Denies cough, Denies dyspnea and Denies dyspnea on exertion GI Denies hematochezia and Denies change in stool character Musc Denies abnormal gait, Reports limited range of motion, Reports muscle cramps, Denies muscle weakness, Denies numbness, Denies radiating pain into limb, Denies stiffness and Denies tingling Neuro Denies abnormal gait, Reports dizziness, Denies numbness and Denies tingling Endo Denies palpitations Physical Exam Vital Signs: Last Vital Signs Pulse 117 H 11/29/24 14:11 BP 130/52 L 11/29/24 14:11 BMI result Body Mass Index 27.8 Const General: comfortable and no acute distress Orientation/consciousness: patient oriented x3 HEENT Other: Unremarkable Head: Yes normal to inspection Neck Neck: Yes normal visual inspection Chest Chest palpation & inspection: normal inspection of the chest Resp Auscultation: clear to auscultation bilaterally Cardio Palpation: normal PMI Heart sounds: S1 normal heart sound present, S2 normal heart sound present, no gallops, no murmurs and no rubs GI Palpation (GI): Soft to palpation Back/Spine/Pelvis Other: unremarkable Skin General skin exam: no rashes or lesions noted Neuro General: patient oriented x3 Extrem General: Yes normal to inspection Psych Mental Status: mental status grossly normal Office Procedures EKG Details: EKG with sinus tachycardia at 117/Min; possible left atrial enlargement; nonspecific ST-T changes; PVC. [id number], Complete Assessment & Plan Assessment & Plan (1) Orthostatic hypotension: Code(s): I95.1 - Orthostatic hypotension Category: Medical (2) Primary hypertension: Code(s): I10 - Essential (primary) hypertension Category: Medical (3) Type 2 diabetes mellitus: Code(s): E11.9 - Type 2 diabetes mellitus without complications Category: Medical (4) Sinus tachycardia: Code(s): R00.0 - Tachycardia, unspecified Category: Medical Plan Available cardiac data reviewed. Echocardiogram from [place] 2023-LVEF 50-55%. Left ventricular hypertrophy. Aortic valve as well as aortic root sclerosis. Mild mitral/tricuspid regurgitation. Small pericardial effusion vs adipose tissue. In the repeat echocardiogram from 2024, LVEF 55-60%. Mitral annular calcification but no valvular dysfunction. Adenosine perfusion imaging study in [place] from 2023-possible mild ischemia involving septal/inferolateral wall versus soft tissue attenuation. In the handwritten note from tube wrapper, ' in favor of artifact'. Clinically, she has got no angina of note. Holter monitor shows underlying sinus rhythm with an average rate of 83/Min. Rare supraventricular/ventricular ectopy. Overall, symptoms suggestive of orthostatic hypotension. Unfortunately, this is going to be difficult to treat as she also has hypertension. We can try to cut back on amlodipine to see if that helps. If she indeed has any rebound hypertension, we will need to deal with that. Overall, may have to accept some hypertension to avoid dizziness symptoms. She may also have neuropathy related to diabetes which can contribute to this. With regard to the sinus tachycardia, that could cause palpitations. However, in the Holter monitor she did not really have any significant findings. Again could be autonomic dysfunction related to diabetes. She is already on some beta-blockers and that can be continued. Main advise otherwise would be to get up slowly from a seated position to minimize symptoms, but it may be very difficult to resolve this issue completely. They understand that. We will follow up with him in about 3 months or so. Coding Level of Care Code New Pt Level 4 (79414) Complex EM visit Add On G2211 Diagnoses Orthostatic hypotension I95.1 Primary hypertension I10 Type 2 diabetes mellitus E11.9 Sinus tachycardia R00.0 CPT Codes EKG - CPT: 87923-[id number], Complete ([id number])
[2024-11-29 14:11] VITALS: BP 130/52; PULSE 117; BMI 27.8
--- OUTSIDE RECORDS SUMMARY | 2024-11-29 17:54 | XMS_ITS | Encounter Summary ---
Author Organization [employer] Address [address] [place] [address] [address] [place] [address] Care Team Providers Care Architectural Wood Model Maker Name Role Phone Jenifer Chi DO Primary Care Provider [phone] Sherrill Franklin PharmD Unavailable Reason for Visit * Reason Comments Med Refill Encounter Details Date Type Department Care Team ([facility] st Contact Info) Description 11/29/2024 Refill [facility] [address] [place] [address] Jenifer Chi DO [address] [place] [address] Constipation, unspecified constipation type Social History Tobacco [...] Description 12/10/2024 9:00 AM EDT Medication Management [facility] [address] [place] [address] Sherrill Franklin PharmD [address] [place] [address] documented as of this encounter Visit Diagnoses Diagnosis Constipation, unspecified constipation type documented in this encounter Additional Health Concerns Assessment Noted Time PHQ-9 Depression Total Score: 3 11/10/19 24 9:00 AM EDT documented as of this encounter Care Teams Architectural Wood Model Maker Relationship Specialty Start Date End Date Jenifer Chi DO [address] [place] [address] PCP - General Family Medicine 11/10/23 Sherrill Franklin, PharmD [address] [place] [address] Pharmacist Internal Medicine 11/17/23 Eliu Caring 09/25/24 documented as of this encounter
--- OUTSIDE RECORDS SUMMARY | 2024-11-29 17:54 | XMS_ITS | Encounter Summary ---
Author Organization [employer] Address [address] [place] [address] [address] [place] [address] Care Team Providers Care Ending Machine Operator Name Role Phone YuliyaJenifer morse Primary Care Provider [phone] Sherrill Franklin PharmD Unavailable [phone] Encounter Details Date Type Department Care Team (Late st Contact Info) Description 02/17/2024 Orders Only [facility] [address], [place] [phone] Beba Palomares MD [address] [place], [place] [phone] Constipation, unspecified constipation type (Primary Dx) Social [...] Upcoming Encounters Date Type Department Care Team ([facility] st Contact Info) Description 12/10/2024 9:00 AM EDT Medication Management [facility] [address] [place] [address] Sherrill Franklin PharmD [address] [place] [address] documented as of this encounter Visit Diagnoses Diagnosis Constipation, unspecified constipation type- Primary documented in this encounter Additional Health Concerns Assessment Noted Time PHQ-9 Depression Total Score: 3 11/10/19 24 9:00 AM EDT documented as of this encounter Care Teams Ending Machine Operator Relationship Specialty Start Date End Date Jenifer Chi DO [address] [place] [id number] PCP - General Family Medicine 11/10/23 Sherrill Franklin, PharmD [address] [place] [phone] Pharmacist Internal Medicine 11/17/23 Eliu Smyth 09/25/24 documented as of this encounter
--- OUTSIDE RECORDS SUMMARY | 2024-11-29 17:54 | XMS_ITS | Clinical Summary ---
Author Organization 175 [facility] Address [address] [place] [address] Phone Care Team Providers Care Intensive Care Medicine Specialist Name Role Phone Alon Jenifer Penny CUMMINGS Primary Care Provider [phone] Allergies No known active allergies Medications acetaminophen [...] mouth 1 (one) time each day. Active empagliflozin-me tformin (Synjardy) 12.5-1,000 mg tablet Take 2 tablets by mouth 1 (one) time each day with breakfast. 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 Apply to wound as directed 22 g 1 5 12/22/19 25 Active Active Problems Problem Noted Date Diagnosed Date Surgical wound, non healing 11/21/2024 Non-pressure chronic ulcer o f other part of right foot with bone involvement without evidence of necrosis ([facility] V24, [facility] V28) 11/21/2024 Non-pressure chronic ulcer o f other part of right foot with other specified severity ([facility] V24, [facility] V28) 11/21/2024 PVD (peripheral vascular disease) ([facility] V24) 11/21/2024 Type 2 diabetes mellitus wit h foot ulcer (CODE) ([facility] V24, [facility] V28) 11/21/2024 PAD (peripheral artery disease) ([facility] V24) Ulcer of toe of right foot, with necrosis of bone ([facility] V24, [facility] V28) 11/06/2024 Diabetic foot infection ([facility] V24, [facility] V2 8) 09/15/2024 Chronic wound 09/14/2024 Encounters Date Type Department Care Team Description 11/21/2024 9:15 AM EDT Consult [facility] [address] [place] [phone] Fabio Kerns PA Non-healing surgical wound, initial encounter (Primary Dx); 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 ([facility] V24, [facility] V28); Non-pressure chronic ulcer of other part of right foot with other specified severity ([facility] V24, [facility] V28); PVD (peripheral vascular disease) ([facility] V24); Type 2 diabetes mellitus with foot ulcer (CODE) ([facility] V24, [facility] V28) 11/20/2024 10:15 AM EDT Office Visit Orthopedic [facility] [address] [phone] Brian Evangelista DPM Poorly controlled type 2 diabetes mellitus with neuropathy ([facility] V24, [facility] V28) (Primary Dx); PAD (peripheral artery disease) ([facility] V24); Ulcer of toe of right foot, with necrosis of bone ([facility] V24, [facility] V28); Dehiscence of operative wound, subsequent encounter 11/06/2024 9:45 AM EDT Office Visit [facility] [address] [phone] Brian Evangelista DPM Poorly controlled type 2 diabetes mellitus with neuropathy ([facility] V24, [facility] V28) (Primary Dx); PAD (peripheral artery disease) ([facility] V24); Ulcer of toe of right foot, with necrosis of bone ([facility] V24, [facility] V28); Dehiscence of operative wound, subsequent encounter 11/02/2024 7:00 AM EDT Ancillary Procedure [facility] [address] [facility] [address] [place] [phone] PAD (peripheral artery disease) ([facility] V24) 10/30/2024 9:15 AM EDT Office Visit Orthopedic Surgery [facility] [address] [phone] Brian Evangelista, DPM Poorly controlled type 2 diabetes mellitus with neuropathy (CMS/HCC V24, CMS/HCC V28) (Primary Dx); PAD (peripheral artery disease) ([facility]/HCC V24); Ulcer of toe of right foot, with necrosis of bone (CMS/HCC V24, CMS/HCC V28); Dehiscence of operative wound, subsequent encounter 10/16/2024 9:15 AM EDT Office Visit Orthopedic Surgery [facility] [address] [phone] Brian Evangelista, DPM Poorly controlled type 2 diabetes mellitus with neuropathy (CMS/HCC V24, CMS/HCC V28) (Primary Dx); PAD (peripheral artery disease) (CMS/HCC V24); Ulcer of toe of right foot, with necrosis of muscle (CMS/HCC V24, CMS/HCC V28) 10/10/2024 8:45 AM EDT Office Visit Orthopedic Surgery [facility] [address] [phone] Brian Evangelista, DPM Poorly controlled type 2 diabetes mellitus with neuropathy (CMS/HCC V24, CMS/HCC V28) (Primary Dx); PAD (peripheral artery disease) ([facility]/HCC V24); Ulcer of toe of right foot, with fat layer exposed ([facility]/HCC V24, CMS/HCC V28) 10/05/2024 Telephone Orthopedic Surgery [facility] [address] [phone] Brian Evangelista, DPM 10/04/2024 11:15 AM EDT Office Visit Orthopedic Surgery [facility] [address] [phone] Brian Evangelista, DPM Poorly controlled type 2 diabetes mellitus with neuropathy (CMS/HCC V24, CMS/HCC V28) (Primary Dx); PAD (peripheral artery disease) (CMS/HCC V24); Ulcer of toe of right foot, with fat layer exposed (CMS/HCC V24, CMS/HCC V28); Dehiscence of operative wound, initial encounter 09/16/2024 8:00 AM EDT - 09/16/2024 9:15 AM EDT Surgery [facility] Main OR [address] [place] [phone] Brian Evangelista DPM AMPUTATION TOE 1ST AND 5TH 09/16/2024 7:56 AM EDT Anesthesia Event [facility] OR [address] [place] [phone] Bryson Martinez MD Dasilva, John E, MD 09/14/2024 10:45 AM EDT - 09/20/2024 12:25 PM EDT Hospital Encounter [facility] [address] [place] [phone] Alfie Acuna MD Flores, Carlos M, MD Santoyo-Pacheco, Omar D, MD Rasul, Yar M, MD Diabetic foot infection ([facility] V24, [facility] V28) (Primary Dx); Chronic wound; Osteomyelitis of foot, right, acute ([facility] V24, [facility] V28) Discharge Disposition: Home-Health Care [facility] [place] 09/10/2024 11:00 AM EDT Office Visit Orthopedic Surgery - [place] [address] [facility] [address] [place] [phone] Brian Evangelista DPM Poorly controlled type 2 diabetes mellitus with neuropathy ([facility] V24, [facility] V28) (Primary Dx); PAD (peripheral artery disease) ([facility] V24); Ulcer of toe of right foot, with necrosis of bone ([facility] V24, [facility] V28); Acute osteomyelitis of right ankle or foot ([facility] V24, [facility] V28) 08/30/2024 12:15 PM EDT Consult Vascular Surgery - [place] [address] [place] [phone] Monika Vu MD PAD (peripheral artery disease) ([facility] V24) from Last 3 Months Surgical History Surgery Date Site/Laterality Comments CARPAL TUNNEL RELEASE Medical History Medical History Date Comments Diabetes mellitus ([facility] V24, [facility] V28) Neuropathy Hyperlipidemia Hypertension Social History Tobacco Use Types Packs/Day Years Used Date Smoking Tobacco: Never Smokeless Tobacco: Never Tobacco Cessation:Counseling Given: Not Answered Alcohol Use Standard Drinks/Week Comments Never 0 (1 standard drink = 0.6 oz pur e alcohol) Food Risk Answer Date Recorded Within the [...] Sign Reading Time Taken Comments Blood Pressure 118/54 11/21/2024 9:41 AM EDT Pulse 77 11/21/2024 9:41 AM EDT Temperature 36.1 C (97 F) 11/21/2024 9:41 AM EDT Respiratory Rate 16 11/21/2024 9:41 AM EDT Oxygen Saturation 99% 11/21/2024 9:41 AM EDT Inhaled Oxygen Concentration - - Weight 75.8 kg (167 lb 3.2 oz) 09/14/2024 10:40 AM EDT Height 162.6 cm (5' 4 ) 09/14/2024 10:40 AM EDT Body Mass Index 28.7 09/14/2024 10:40 AM EDT Plan of Treatment Upcoming Encounters Date Type Department Care Team (Late st Contact Info) Description 12/05/2024 8:30 AM EDT Office Visit Vascular Surgery [place] [address] [place] [phone] Jannet Flores PA [address] [place] [address] 12/06/2024 9:00 AM EDT Office Visit Orthopedic Surgery [facility] 250 175 [facility] [address] [place] [phone] Brian Evangelista, DPM 175 [facility] [address] [place] [address] Scheduled Procedures Name Priority Associated Diagnoses Date/Ti me AMPUTATION TOE PAD (peripheral artery disease) ([facility] V24) Ulcer of toe of right foot, with necrosis of bone ([facility] V24, [facility] V28) Health Maintenance Due Date Last Done Comments Breast Cancer Screening 1950 Colorectal Cancer Screening: Colonoscopy 1950 Diabetes: Annual Retina Eye Exam 05/30/1961 Depression Screening 02/15/2024 Medicare Annual Wellness Visit 06/23/2024 Osteoporosis Screening (Bone Density Screening) 06/23/2024 Diabetes: Annual Urine Albumin-Creatinine Ratio (uACR) 07/13/2024 Zoster Vaccines (2 of 2) 07/16/2024 05/21/2024 COVID-19 Vaccine ( season) 2024 11/10/2023 Diabetes: Blood Sugar Control Test (HGBA1C) 03/17/2025 09/14/2024, 09/06/2024, 06/08/2024, Additional history exists Diabetes: Annual Foot Exam 09/14/2025 09/14/2024 Social Influencers of Health Screening 09/16/2025 09/16/2024 Diabetes: Annual GFR (Glomerular Filtration Rate) 09/20/2025 09/20/2024, 09/17/2024, 09/16/2024, Additional history exists Hypertension/CHF/CAD Annual BMP Blood Test 09/20/2025 09/20/2024, 09/17/2024, 09/16/2024, Additional history exists Falls Risk Assessment 11/21/2025 11/21/2024 Cholesterol Screening (Lipid Panel) 05/21/2029 05/21/2024 DTaP,Tdap,and [...] on patient's age to complete this topic Goals Goal Patient Goal Type Associated Problems Recent Progress Patient-Stated? Author Decrease Wound Volume by X% by date (in notes) Care Plan Impaired Tissue Jeanne Nicole RN Patient and Caregiver Understand Wound Care Education Care Plan Impaired Tissue Jeanne Nicole RN Wound volume breakdown reduced by X% by week 4 Care Plan Impaired Tissue Jeanne Nicole RN Wound volume breakdown reduced by X% by week 8 Care Plan Impaired Tissue Jeanne Nicole RN Wound volume breakdown reduced by X% by week 12 Care Plan Impaired Tissue Jeanne Nicole RN Quit using tobacco (cigarettes, smokeless, etc) Care Plan Education needed on impact of smoking on wound Jeanne Nicole RN Reduce tobacco use (cigarettes, smokeless, etc) Care Plan Education needed on impact of smoking on wound Jeanne Nicole RN Decrease Wound Volume by X% by date (in notes) Care Plan Education needed on impact of smoking on wound Jeanne Nicole RN Patient and Caregiver Understand Wound Care Education Care Plan Education needed related to ulceration/compr omised skin integrity. 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 (CMS/[facility] V24, [facility] V28) PVD (peripheral vascular disease) ([facility] V24) VAS US DUPLEX LOWER EXT ARTERIES BILAT WITH CUCA Routine 11/02/2024 7:40 AM EDT PAD (peripheral artery disease) ([facility] V24) XR FOOT 3+ VIEWS RIGHT Routine [...] EDT from Last 3 Months Results * Debridement Incision Anterior;Right Toe D1, Great (11/21/2024 9:15 AM EDT) Fabio Jones PA - 11/21/2024 9:15 AM EDT DAISY Oliveros 11/21/2024 10:26 AM Debridement Incision Anterior;Right Toe D1, Great Performed by: DAISY Oliveros Authorized by: DAISY Oliveros Associated wounds: Wound Incision 09/16/24 Toe D1, Great Anterior;Right Consent: Consent obtained: Verbal Consent given by: Patient Risks discussed: Yes Time out: Immediately prior to the procedure a time out was called Debridement Details: Performed by: PA Type: surgical Level: subcutaneous tissue Pain control: Lidocaine 4% Severity of Tissue Pre Debridement: Fat layer exposed Severity of Tissue Post Debridement: Fat layer exposed Time taken: 11/21/2024 9:36 AM Length (cm): 2 Width (cm): 2.1 Depth (cm): 0.5 Area (cm^2): 3.3 Time taken: 11/21/2024 9:37 AM Length (cm): 2 Width (cm): 2.1 Depth (cm): 0.5 Percent Debrided (%): 75 Surface Area (cm^2): 4.2 Area Debrided (cm^2): 3.15 Volume (cm^3): 2.1 Tissue and other material debrided: dermis, epidermis and subcutaneous tissue Devitalized tissue debrided: biofilm, exudate, fibrin, necrotic debris and slough Instrument: Curette Amount of bleeding: none Hemostasis obtained with: Not applicable Procedural pain: 0 Post-procedural pain: 0 Response to treatment: Procedure was tolerated well us Fabio VILLA IN CLINIC/BEDSIDE ORDERABLE S Final Result * Vascular US duplex lower extremity arteries [...] PSV 77 cm/s CV VAS LAB Left DUCT INSTALLER prox sys PSV 119 cm/s CV VAS [...] PSV 49 cm/s CV VAS LAB Right DUCT INSTALLER prox sys PSV 101 cm/s CV VAS [...] The mid peroneal artery has monophasic flow. Special Education Superintendent Details A [place] scale, color and doppler analysis ultrasound was performed. During the study longitudinal views were obtained. Pulsed wave doppler was performed. us Monika Vu MD CV VASCULAR PROCEDURES Fi [...] of24 resultswithin the time period is included. [facility] Glucose POCT 236(H) 70 - 100 mg/dL 09/20/2024 11:42 AM EDT [facility] Blood Capillary blood specimen / Unknown 09/20/2024 11:41 AM EDT 09/20/2024 11:45 AM EDT us Jesús Pacheco MD LAB POINT OF CARE TE ST DOCKED DEVICE UNSOLICITED RESULTS Final Result [facility] [address] [place] [address], [place] [phone] * (ABNORMAL) CBC auto differential (09/20/2024 5:46 AM EDT) Only the most recent of4 resultswithin the time period is included. [facility] WBC 9.3 4.8 - 10.8 K/mcL LAB HEMETOLOGY METHOD 09/20/2024 7:10 AM EDT [facility] RBC 4.10 3.80 - 4.80 M/mcL LAB HEMETOLOGY METHOD 09/20/2024 7:10 AM EDT [facility] Hemoglobin 11.3(L) 11.5 - 16.0 g/dL LAB HEMETOLOGY METHOD 09/20/2024 7:10 AM EDT [facility] Hematocrit 36.3 35.0 - 47.0 % LAB HEMETOLOGY METHOD 09/20/2024 7:10 AM EDT [facility] MCV 89.0 79.0 - 98.0 FL LAB HEMETOLOGY METHOD 09/20/2024 7:10 AM [facility] MCH 27.7 27.0 - 32.0 pcg LAB HEMETOLOGY METHOD 09/20/2024 7:10 AM [facility] MCHC 31.1(L) 32.0 - 37.0 g/dL LAB HEMETOLOGY METHOD 09/20/2024 7:10 AM [facility] RDW 13.7 11.0 - 15.0 % LAB HEMETOLOGY METHOD 09/20/2024 7:10 AM [facility] Platelets 249 130 - 400 K/mcL LAB HEMETOLOGY METHOD 09/20/2024 7:10 AM [facility] MPV 9.8 7.0 - 11.0 [...] LAB HEMETOLOGY METHOD 09/20/2024 7:10 AM EDT [facility] Neutrophils Absolute 5.80 1.50 - 7.00 K/mcL LAB HEMETOLOGY METHOD 09/20/2024 7:10 AM EDT [facility] Lymphocytes Absolute 2.12 1.00 - 5.00 K/mcL LAB HEMETOLOGY METHOD 09/20/2024 7:10 AM EDT [facility] Monocytes Absolute 0.71 0.20 - 1.00 K/mcL LAB HEMETOLOGY METHOD 09/20/2024 7:10 AM EDT [facility] Eosinophils Absolute 0.62(H) 0.00 - 0.50 K/mcL LAB HEMETOLOGY METHOD 09/20/2024 7:10 AM EDT [facility] Basophils Absolute 0.06 0.00 - 0.20 K/mcL LAB HEMETOLOGY METHOD 09/20/2024 7:10 AM EDT [facility] Immature Granulocytes Absolute 0.03 0.00 - 0.03 K/[facility] LAB HEMETOLOGY METHOD 09/20/2024 7:10 AM EDT [facility] Blood Blood sample taken from central line / Unknown Venipuncture / Unknown 09/20/2024 5:46 AM EDT 09/20/2024 6:46 AM EDT us Jesús Pacheco MD LAB BLOOD ORDERABLES Final Resul t [facility] [address] [place] [address], * (ABNORMAL) Basic metabolic panel (09/20/2024 5:46 AM EDT) Only the most recent of4 resultswithin the time period is included. Sodium 139 133 - 145 mmol/L LAB CHEMISTRY METHOD 09/20/2024 7:36 AM EDT [facility] Potassium 4.0 3.5 - [...] 7:36 AM [facility] Creatinine 1.00 0.50 - 1.10 mg/dL LAB CHEMISTRY METHOD 09/20/2024 7:36 AM [facility] eGFR 60 >=60 mL/min/1. 73m2 LAB CHEMISTRY METHOD 09/20/2024 7:36 AM [facility] Comment:Calculation based on the Chronic Kidney Disease Epidemiology Collaboration (CKD-EPI) equation refit without adjustment for race. BUN/Creatinine Ratio 14.0 LAB CHEMISTRY METHOD 09/20/2024 7:36 AM [facility] Calcium 9.0 8.5 - 10.5 mg/dL LAB CHEMISTRY METHOD 09/20/2024 7:36 AM [facility] Blood Blood sample taken from central line / Unknown Venipuncture / Unknown 09/20/2024 5:46 AM EDT 09/20/2024 6:45 AM EDT us Jesús Pacheco MD LAB BLOOD ORDERABLES Final Resul t [facility] [address] [place] [address], * Vancomycin, trough Please draw one hour prior to vanco dose. (09/17/2024 1:18 PM EDT) Only the most recent of2 resultswithin the time period is included. [facility] Vancomycin Trough 14.1 10.0 - 20.0 mcg/mL LAB CHEMISTRY METHOD 09/17/2024 2:05 PM EDT [facility] Blood Venous blood specimen / Unknown Venipuncture / Unknown 09/17/2024 1:18 PM EDT 09/17/2024 1:23 PM EDT us Jenaro Reilly MD LAB BLOOD ORDERABLES F inal Result Performing Organization Address City/[facility]/ZIP Co de Phone Number [facility] [address] [place] [address], [place] [phone] * Phosphorus (09/17/2024 5:08 AM EDT) [facility] Phosphorus 4.0 2.5 - 4.5 mg/dL LAB CHEMISTRY METHOD 09/17/2024 6:49 AM EDT [facility] Blood Venous blood specimen / Unknown Venipuncture / Unknown 09/17/2024 5:08 AM EDT 09/17/2024 6:11 AM EDT us Jenaro Reilly MD LAB BLOOD ORDERABLES F inal Result [facility] [address] [place] [address], [place] [phone] * (ABNORMAL) Magnesium (09/17/2024 5:08 AM EDT) Only the most recent of2 resultswithin the time period is included. [facility] Magnesium 1.7(L) 1.9 - 2.6 mg/dL LAB CHEMISTRY METHOD 09/17/2024 6:49 AM EDT [facility] Blood Venous blood specimen / Unknown Venipuncture / Unknown 09/17/2024 5:08 AM EDT 09/17/2024 6:11 AM EDT us Jenaro Reilly MD LAB BLOOD ORDERABLES F inal Result Performing Organization Address [facility] de Phone Number [facility] [address] [place] [address], * (ABNORMAL) Creatinine serum (09/16/2024 11:20 AM [...] 11:20 AM EDT 09/16/2024 11:25 AM EDT us Jenaro Reilly MD LAB BLOOD ORDERABLES F inal Result Performing Organization Address [facility] Co de Phone Number [facility] [address] [place] [address], [place] [phone] * Culture anaerobic with gram stain (09/16/2024 [...] AM EDT 09/16/2024 8:39 AM EDT Brian Penny Evangelista DPM LAB MICROBIOLOGY - GENERAL ORDERABLES Final Result [facility] [address] [place] [address], * (ABNORMAL) Culture wound deep (09/16/2024 8:24 [...] LAB MICROBIOLOGY - GENERAL ORDERABLES Final Result [facility] [address] [place] [address], * Tissue exam (09/16/2024 8:17 AM EDT) [...] show hard to brittle yellow bone. A business development representative longitudinal section is submitted in one [...] DPM LAB PATHOLOGY ORDERABLES Fi nal Result Performing Organization Address [facility]/ZIP Co de Phone Number [facility] [address] [place] [address], * SST tube (09/15/2024 8:07 AM EDT) Extra Tube Hold for add-ons. 09/15/2024 10:01 AM EDT [facility] Comment:Auto resulted. Blood Venous blood specimen / Unknown 09/15/2024 8:07 AM EDT 09/15/2024 8:31 AM EDT Jenaro Reilly MD LAB BLOOD ORDERABLES F inal Result Performing Organization Address City/[facility]/ZIP Co de Phone Number [facility] [address] [place] [address], [place] [phone] * ECG 12 lead (09/15/2024 7:31 AM EDT) Ventricular Rate ECG 95 BPM GEMUSE Atrial Rate 95 BPM GEMUSE P-R Interval 124 ms GEMUSE QRS Duration 72 ms GEMUSE Q-T Interval 374 ms GEMUSE QTc 469 ms GEMUSE P Wave [place] 30 degrees GEMUSE R [place] 14 degrees GEMUSE T [place] 74 degrees GEMUSE ECG Interpretation Normal sinus rhythm Normal ECG No previous ECGs available Confirmed by MD Sahu Christopher ([id number]) on 09/15/2024 9:58:05 PM GEMUSE 09/15/2024 7:31 AM EDT 09/15/2024 9:58 PM EDT us Jonathan Christina MD ECG ORDERABLES Final Result Performing Organization Address City/[facility]/ZIP Co de Phone Number GEMUSE * Lactate (09/15/2024 7:05 AM EDT) Pathologist [facility] Lactate 1.6 0.4 - 2.0 mmol/L LAB CHEMISTRY METHOD 09/15/2024 7:57 AM EDT [facility] Blood Venous blood specimen / Unknown Venipuncture / Unknown 09/15/2024 7:05 AM EDT 09/15/2024 7:33 AM EDT us Jonathan Christina MD LAB BLOOD ORDERABLES Final Re sult Performing Organization Address City/[facility]/ZIP Co de Phone Number [facility] [address] [place] [address], * (ABNORMAL) Lactate, with reflex (09/14/2024 1:42 [...] ORDERABLES Final Resu lt Performing Organization Address [facility]/ZIP Co de Phone Number [facility] [address] [place] [address], [place] [phone] * (ABNORMAL) C-reactive protein (09/14/2024 12:36 PM EDT) [facility] C-Reactive Protein 0.77(H) <=0.50 mg/dL LAB CHEMISTRY METHOD 09/14/2024 2:45 PM EDT [facility] Blood Venous blood specimen / Unknown Venipuncture / Unknown 09/14/2024 12:36 PM EDT 09/14/2024 12:43 PM EDT Jonathan Christina MD LAB BLOOD ORDERABLES Final Re sult Performing Organization Address [facility] Co de Phone Number [facility] [address] [place] [address], [place] [phone] * Lavender tube (09/14/2024 12:30 PM EDT) [facility] Extra Tube Hold for add-ons. 09/14/2024 2:01 PM EDT [facility] Comment:Auto resulted. Blood Venous blood specimen / Unknown 09/14/2024 12:30 PM EDT 09/14/2024 12:44 PM EDT Alfie Acuna MD LAB BLOOD ORDERABLES Final Resu lt Performing Organization Address [facility]/ZIP Co de Phone Number [facility] [address] [place] [address], [place] [phone] * (ABNORMAL) Hemoglobin A1c (09/14/2024 12:30 PM EDT) Pathologist [facility] Hemoglobin A1C 6.7(H) <6.5 % LAB CHEMISTRY METHOD 09/14/2024 11:02 PM EDT [facility] Mean Bld Glu Estim. 146 mg/dL LAB CHEMISTRY METHOD 09/14/2024 11:02 PM EDT [facility] Blood Venous blood specimen / Unknown 09/14/2024 12:30 PM EDT 09/14/2024 12:44 PM EDT Joanthan Christina MD LAB BLOOD ORDERABLES Final Re sult [facility] [address] [place] [address], [place] [phone] * Culture blood (09/14/2024 11:32 AM EDT) Only the most recent of2 resultswithin the time period is included. Culture, Blood No growth at 5 days 09/19/2024 1:01 PM EDT [facility] Blood Venous blood specimen / Unknown Venipuncture / Unknown 09/14/2024 11:32 AM EDT 09/14/2024 11:48 AM EDT Alfie Acuna MD LAB MICROBIOLOGY - GENERAL HAROLDO BOWMAN Final Result Performing Organization Address City/[facility]/ZIP Co de Phone Number [facility] [address] [place] [address], [place] [phone] from Last 3 Months Additional Health Concerns Active Problems Noted Date Diagnosed Date Impaired Tissue 11/21/2024 Education needed on impact of smoking on wound 1 Education needed related to ulceration/compromised skin integrity. 11/21/2024 Insurance [place] Advance Directives * Full [...] currently active code status orders. Care Teams Intensive Care Medicine Specialist Relationship Specialty Start Date End Date Jenifer Chi DO [address] [place] [address] PCP - General Family Medicine 08/08/24
--- OUTSIDE RECORDS SUMMARY | 2024-11-29 17:54 | XMS_ITS | Clinical Summary ---
Author Organization [employer] Address [address] [facility] 7[address] [place] [address] Care Team Providers Care Suction Roller Name Role Phone Jenifer Chi Primary Care Provider [phone] Sherrill Franklin PharmD Unavailable [phone] Allergies No known active allergies Medications Alcohol Swabs 70 % pads Use to test blood sugar 2 times daily 100 each 11/10/19 24 Active Blood Glucose Monitoring Suppl (FreeStyle Buxton Lite) w/Device kit Use to test blood [...] mins before CT scan. 1 tablet 11/13/19 25 Active amLODIPine (Norvasc) 10 MG tablet Take 1 tablet (10 mg) by mouth Once per day. 30 tablet 11 11/17/19 24 025 Discontinued(Re order (will not trigger notification to Pharmacy)) Active [...] Encounters Date Type Department Care Team Description 11/29/2024 Refill [facility] [address] [place] [address] Jenifer Chi DO Constipation, unspecified constipation type 11/09/2024 Refill [facility] [address] [place] [address] Jenifer Chi DO 11/09/2024 Travel 11/08/2024 Orders Only [facility] [address] [place] [address] Jenifer Chi DO Type 2 diabetes mellitus with retinopathy of both eyes, without long-term current use of insulin, macular edema presence unspecified, unspecified retinopathy severity (CMS/HCC) (Primary Dx) 10/26/2024 Telephone [facility] [address] [place] [address] Sherrill Franklin, PharmD Referral 10/23/2024 Refill [facility] [address] [place] [address] Jenifer Chi DO 10/19/[address] [address] Jenifer Chi DO FYI 10/19/[address] [address] Jenifer Chi DO Durable Medical Equipment 10/17/2024 3:30 PM EDT Office Visit [address] [address] Keena Pelaez ANP Orthostatic hypertension (Primary Dx); Palpitations; Diabetic polyneuropathy associated with type 2 diabetes mellitus (CMS/HCC); Dizziness 10/17/2024 Travel 10/16/[address] [address] Jenifer Chi DO Nurse Triage 10/04/2024 2:30 PM EDT Office Visit [address] [address] Keena Pelaez ANP Diabetic polyneuropathy associated with type 2 diabetes mellitus (CMS/HCC) (Primary Dx); Hospital discharge follow-up; Status post amputation of lesser toe of right foot (CMS/HCC) 10/04/2024 Travel 10/03/2024 Telephone [facility] [address] [place] [phone] [place] 09/27/[address] [address] Jenifer Chi DO verbla orders 09/25/[address] [address] Jenifer Chi DO Verbal order 09/24/[address] [address] Jenifer Chi DO FYI 09/21/2024 Patient Outreach [facility] [address] [place] [address] Jenifer Chi DO Transition Of Care (Tcm) (HDF unscheduled) 09/12/2024 Orders Only [facility] [address] [place] [address] Jenifer Chi, Breast cancer screening by mammogram (Primary Dx) 09/10/2024 Telephone [facility] [address] [place] [address] Lakesha Weston, OD 09/06/2024 Telephone [facility] [address] [place] [address] Jenifer Chi, 09/06/2024 Telephone [facility] [address] [place] [address] Sherrill Franklin, PharmD Care Coordination 09/06/2024 Travel [...] Description 12/10/2024 9:00 AM EDT Medication Management [facility] [address] [place], [place] [phone] Sherrill Franklin, PharmD [address] [place] [address] Health Maintenance Due Date Last Done Comments CT Colonography 1950 Colonoscopy 1950 Colorectal Cancer Screening 1950 FIT DNA/Cologuard 1950 FIT 1950 FOBT 1950 Sigmoidoscopy 1950 Diabetes: Foot Exam 05/30/1961 Alcohol/Substance Use Screening 1963 Mammogram 1991 Zoster Vaccines (2 of 2) 07/16/2024 05/21/2024 COVID-19 Vaccine ( season) 2024 11/10/2023 SDOH Screening 11/01/2024 11/02/2023 [...] Procedure Name Priority Date/Time Associated Diagnosis Comments CT HEAD WO CONTRAST Routine 11/19/2024 4 :30 PM EDT Dizziness VASC US CAROTID ARTERY DUPLEX BILATERAL Routine [...] Recently Relevant to Health Maintenance Results * CT Head w/o Contrast (11/19/2024 4:30 PM EDT) Anatomical Region Laterality Modality Head, Neck Computed Tomogra phy 11/19/2024 4:30 PM EDT Narrative 11/19/2024 4:32 PM EDT [address] [address] [address] Scan Report Signed Patient: Yani Stewart MR#: [id number] : 1950 Acct:[id number] Age/Sex: 74 / F ADM Date: 11/17/24 Loc: HO.CT Attending Dr: Jenifer Chi DO Ordering Physician: Jenifer Chi DO Date of Service: 11/17/24 Procedure(s): CT head/brain wo IV con Accession Number(s): [id number] cc: Jenifer Chi DO Report Number: [id number]: Total DLP = 754.00 mGy-cm Reason for Exam: worsening dizziness CLINICAL HISTORY: worsening dizziness CT of the head without intravenous contrast Comparison: None Findings: The ventricles and sulci are prominent, consistent with generalized cerebral parenchymal volume loss. The ventricles are symmetric and the basilar cisterns are intact. Mild periventricular, deep and subcortical white matter hypodensities are nonspecific but statistically reflect the sequela of chronic small vessel ischemic change. No intracranial hemorrhage, extra-axial fluid collection, midline shift or mass-effect is evident. No evidence of acute large vessel or territorial ischemia. Brainstem and cerebellum unremarkable. Vascular calcifications indicate intracranial atherosclerosis. The imaged portion of the paranasal sinuses demonstrated mild maxillary sinusitis. No mastoid effusions are demonstrated. The orbital contents are unremarkable. Calvarium is intact. Impression: 1. No CT evidence of acute intracranial abnormality. 2. Cerebral volume loss, intracranial atherosclerotic disease and mild sequela of chronic small vessel ischemic disease. This document has been electronically signed by: Tigre Busby MD on 11/19/2024 16:30:57 Dictated By: Tigre Busby MD Signed By: <Electronically signed by Tigre Busby MD in OV> 11/19/24 1632 DD/ 1630 TD/TT: 11/19/24 1630 Supervisor Pig Machine: Procedure Note Donotuseinterpreter, Image - 11/19/[address] [address] [address] Scan Report Signed Patient: Yani Stewart AMR#: [id number] : 1950cct:[id number] Age/Sex: 74 / FADM Date: 11/17/24 Loc: HO.CT Attending Dr: Jenifer Chi DO Ordering Physician: Jenifer Chi DO Date of Service: 11/17/24 Procedure(s): CT head/brain wo IV con Accession Number(s): [id number] cc: Jenifer Chi DO Report Number: [id number]: Total DLP = 754.00 mGy-cm Reason for Exam: worsening dizziness CLINICAL HISTORY: worsening dizziness CT of the head without intravenous contrast Comparison: None Findings: The ventricles and sulci are prominent, consistent with generalized cerebral parenchymal volume loss. The ventricles are symmetric and the basilar cisterns are intact. Mild periventricular, deep and subcortical white matter hypodensities are nonspecific but statistically reflect the sequela of chronic small vessel ischemic change. No intracranial hemorrhage, extra-axial fluid collection, midline shift or mass-effect is evident. No evidence of acute large vessel or territorial ischemia. Brainstem and cerebellum unremarkable. Vascular calcifications indicate intracranial atherosclerosis. The imaged portion of the paranasal sinuses demonstrated mild maxillary sinusitis. No mastoid effusions are demonstrated. The orbital contents are unremarkable. Calvarium is intact. Impression: 1. No CT evidence of acute intracranial abnormality. 2. Cerebral volume loss, intracranial atherosclerotic disease and mild sequela of chronic small vessel ischemic disease. This document has been electronically signed by: Tigre Busby MD on 11/19/2024 16:30:57 Dictated By: Tigre Busby MD Signed By: <Electronically signed by Tigre Busby MD in OV> 11/19/24 1632 DD/ 1630 TD/TT: 11/19/24 1630 Supervisor Pig Machine: us Jenifer Chi DO IMG CT PROCEDURES Final Resu lt * Vascular US carotid artery duplex bilateral (10/18/2024 11:09 AM EDT) 10/18/2024 11:0 9 AM EDT Narrative [facility] - 10/18/2024 11:48 AM EDT [address] [address] Ultrasound Report Signed Patient: Yani Stewart MR#: [id number] : 1950 Acct:[id number] Age/Sex: 74 / F ADM Date: 10/18/24 Loc: HO.US Attending Dr: Jenifer Chi DO Ordering Physician: Jenifer Chi DO Date of Service: 10/18/24 Procedure(s): US carotid duplex BI Accession Number(s): [id number] cc: Jenifer Chi DO Reason for Exam: [...] 10/18/24 1144 DD/ 1109 TD/TT: 10/18/24 1127 Supervisor Pig Machine: Procedure Note Donotuseinterpreter, Image - 10/18/[address] [address] Ultrasound Report Signed Patient: Yani Stewart AMR#: [id number] : 1950cct:[id number] Age/Sex: 74 / FADM Date: 10/18/24 Loc: HO.US Attending Dr: Jenifer Chi DO Ordering Physician: Jenifer Chi DO Date of Service: 10/18/24 Procedure(s): US carotid duplex BI Accession Number(s): [id number] cc: Jenifer Chi DO Reason for Exam: [...] 10/18/24 1144 DD/ 1109 TD/TT: 10/18/24 1127 Supervisor Pig Machine: Jenifer Chi DO CV VASCULAR PROCEDURES Final Result [facility] [address] [place] [phone] * (ABNORMAL) POCT HGB A1C (09/06/2024 12:33 PM EDT) [facility] Hemoglobin A1C 6.4(A) 4.0 - 5.7 % Blood 09/06/2024 12:3 3 PM EDT Jenifer Chi DO POINT OF CARE TEST ENTER/WOOD T ORDERABLES Final Result * (ABNORMAL) Lipid Panel, Standard (05/21/2024 10:24 AM EDT) [facility] Triglycerides 161(H) <150 mg/dL [facility] Comment:Desirable Triglyceri de: less than 150 mg/dLBorderline High Triglyceride 150-199 mg/dLHigh Triglyceride: 200-499 mg/dLVery High Triglyceride: greater than or equal to 5OO mg/dL Cholesterol 161 <200 mg/dL [facility] Comment:Desirable Cholestero l: less than 200 mg/dLBorderline High Cholesterol: 200-239 mg/dLHigh Cholesterol: greater than 239 mg/dL LDL Cholesterol Calculated 90 <100 mg/dL [facility] Comment:Desirable LDL: less than 100 mg/dLNear Optimal/Above Optimal LDL: 110- 129 mg/dLBorderline High LDL: 130-159 mg/dLHigh LDL: 160-189 mg/dLVery High LDL: greater than or equal to 190 mg/dL HDL Cholesterol 39(L) >40 mg/dL [facility] Comment:Desirable HDL: great er than 40 mg/dL Note: This HDL assay may give artificially low results in patients with liver disease. 05/21/2024 10:2 4 AM EDT 05/21/2024 11:07 AM EDT Jenifer Chi DO LAB BLOOD ORDERABLES Final R esult Performing Organization Address [facility] Co de Phone Number [facility] [address] [place] [phone] Albumin, Random Urine W/Creatinine (11/10/2023 10:25 AM EDT) Creatinine, Urine 280.99 mg/dL [facility] Microalbumin Urine 26.0 mg/L [facility] Microalbum Creatinine Ratio Ur 9.2 <30 ug/mg cr [facility] Comment:Albumin/Creatinine R atio Reference Ranges: Normal: < 30 ug/mg creatinine Microalbuminuria: 30 - 300 ug/mg creatinineClinical Albuminuria: > 300 ug/mg creatinine Urine (Urine, Random) 11/10/2023 10:25 AM EDT 11/10/2023 11:42 AM EDT Jenifer Chi DO LAB URINE ORDERABLES Final R esult Performing Organization Address [facility]/ZIP Co de Phone Number [facility] [address] [place] [phone] * Hepatitis C Antibody with Reflex to HCV, RNA, Quantitative, Real-Time PCR (11/10/2023 10:21 AM EDT) Hepatitis C Antibody Nonreactive Nonreactive [facility] Comment:Antibodies to HCV no t detected; does not exclude early acuteHCV infection. Blood Venous blood specimen / Unknown 11/10/2023 10:21 AM EDT 11/10/2023 11:51 AM EDT Jenifer Chi DO LAB BLOOD ORDERABLES Final R esult [facility] [address] [place] [address] [phone] from Last 3 Months or Most Recently Relevant to Health Maintenance Insurance MEDICARE [facility] Care Teams Suction Roller Relationship Specialty Start Date End Date Jenifer Chi DO [address] [place] [phone] PCP - General Family Medicine 11/10/23 Sherrill Franklin, LynD [address] [place] [phone] Pharmacist Internal Medicine 11/17/23 [facility] 09/25/24
--- OUTSIDE RECORDS SUMMARY | 2024-11-29 17:54 | XMS_ITS | Encounter Summary ---
Author Organization [employer] Address [address] [place] [address] 7[address] [place] [address] Care Team Providers Care Field Liability Generalist Name Role Phone Jenifer Chi DO Primary Care Provider [phone] Sherrill Franklin PharmD Unavailable [phone] Reason for Visit * Reason Onset Date Comments Durable Medical Equipment 10/19/2024 Encounter Details Date Type Department Care Team (Late st Contact Info) Description 10/19/2024 Telephone [facility] [address] [place], [place] [phone] Jenifer Chi DO [address] [place] [address] Durable Medical Equipment Social History Tobacco Use [...] 12/10/2024 9:00 AM EDT Medication Management [facility] [address] [place] [address] Sherrill Franklin PharmD [address] [place] [address] documented as of this encounter Visit Diagnoses Not on filedocumented in this encounter Additional Health Concerns Assessment Noted Time PHQ-9 Depression Total Score: 3 11/10/19 24 9:00 AM EDT documented as of this encounter Care Teams Field Liability Generalist Relationship Specialty Start Date End Date Jenifer Chi DO [address] [place] [address] PCP - General Family Medicine 11/10/23 Sherrill Franklin, PharmD [address] [place] [phone] Pharmacist Internal Medicine 11/17/23 [facility] 09/25/24 documented as of this encounter
--- OUTSIDE RECORDS SUMMARY | 2024-11-29 17:55 | XMS_ITS ---
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 without evidence of [place] [place] [facility] V28) 11/21/2024 Non-pressure chronic ulcer o f other part of right foot with other specified severity ([facility] V24, [facility] V28) 11/21/2024 PVD (peripheral vascular disease) ([facility] V24) 11/21/2024 Type 2 diabetes mellitus wit h foot ulcer (CODE) ([facility] V24, [facility] V28) 11/21/2024 PAD (peripheral artery disease) ([facility] V24) Ulcer of toe of right foot, with necrosis of bone [place] [place] [facility] V28) 11/06/2024 Diabetic foot infection ([facility] V24, [facility] V2 8) 09/15/2024 Chronic wound 09/14/2024 Additional Health Concerns Active Problems Noted Date Diagnosed Date Impaired Tissue 11/21/2024 Education needed on impact of smoking on wound 1 Education needed related to ulceration/compromised skin integrity. 11/21/2024 Goals Goal Patient Goal Type Associated Problems Recent Progress Patient-Stated? Author Decrease Wound Volume by X% by date (in notes) Care Plan Impaired Tissue No Jeanne Russell RN Patient and Caregiver Understand Wound Care [...] ulceration/compr omised skin integrity. Jeanne Nicole RN Interventions Care Plan Interventions Intervention Entry Date Outcome Provide caregiver with wound care procedure information 11/21/2024 Educate caregiver on proper wound care procedures 11/21/2024 Give provider list of wound care supplies 11/21/2024 Refill wound care supplies 11/21/2024 Send Wound Care Supplies 11/21/2024 Give provider list of wound care supplies 11/21/2024 Refill wound care supplies 11/21/2024 Send Wound Care Supplies 11/21/2024 Provide caregiver with wound care procedure information 11/21/2024 Educate caregiver on proper wound care procedures 11/21/2024 Document patient eligibility for HBO 11/21/2024 Assess patient for HBO treatment 11/21/2024 Record wound depth 11/21/2024 Record total wound area 11/21/2024 Measure wound progress 11/21/2024 Create an action plan identifying patient strengths and supports 11/21/2024 Establish quit date with patient 11/21/2024 Discuss prior cessation attempts 11/21/2024 Discuss preferred method of cessation and plan 11/21/2024 Discuss barriers to smoking cessation 11/21/2024 Discuss smoking status with patient 11/21/2024 Create an action plan identifying patient strengths and supports 11/21/2024 Establish quit date with patient 11/21/2024 Discuss prior cessation attempts 11/21/2024 Discuss preferred method of cessation and plan 11/21/2024 Discuss barriers to smoking cessation 11/21/2024 Discuss smoking status with patient 11/21/2024 Provide caregiver with wound care procedure information 11/21/2024 Educate caregiver on proper wound care procedures 11/21/2024 Document patient eligibility for HBO 11/21/2024 Assess patient for HBO treatment 11/21/2024 Record wound depth 11/21/2024 Record total wound area 11/21/2024 Measure wound progress 11/21/2024 Provide caregiver with wound care procedure information 11/21/2024 Educate caregiver on proper wound care procedures 11/21/2024 Document patient eligibility for HBO 11/21/2024 Assess patient for HBO treatment 11/21/2024 Record wound depth 11/21/2024 Record total wound area 11/21/2024 Measure wound progress 11/21/2024 Provide caregiver with wound care procedure information 11/21/2024 Educate caregiver on proper wound care procedures 11/21/2024 Document patient eligibility for HBO 11/21/2024 Assess patient for HBO treatment 11/21/2024 Record wound depth 11/21/2024 Record total wound area 11/21/2024 Measure wound progress 11/21/2024 Provide caregiver with wound care procedure information 11/21/2024 Educate caregiver on proper wound care procedures 11/21/2024 Give provider list of wound care supplies 11/21/2024 Refill wound care supplies 11/21/2024 Send Wound Care Supplies 11/21/2024 Give provider list of wound care supplies 11/21/2024 Refill wound care supplies 11/21/2024 Send Wound Care Supplies 11/21/2024 Provide caregiver with wound care procedure information 11/21/2024 Educate caregiver on proper wound care procedures 11/21/2024 Record wound depth 11/21/2024 Record total wound area 11/21/2024 Measure wound progress 11/21/2024 Related Goals and Interventions Goal Associated Intervent ions Decrease Wound Volume by X% by date (in notes) Give provider list of wound care supplie s; Refill wound care supplies; Send Wound Care Supplies; Provide caregiver with wound care procedure information; Educate caregiver on proper wound care procedures; Record wound depth; Record total wound area; Measure wound progress Patient and Caregiver Unders tand Wound Care Education Provide caregiver with wound care proced ure information; Educate caregiver on proper wound care procedures; Give provider list of wound care supplies; Refill wound care supplies; Send Wound Care Supplies Wound volume breakdown reduc ed by X% by week 4 Provide caregiver with wound care proced ure information; Educate caregiver on proper wound care procedures; Document patient eligibility for HBO; Assess patient for HBO treatment; Record wound depth; Record total wound area; Measure wound progress Wound volume breakdown reduc ed by X% by week 8 Provide caregiver with wound care proced ure information; Educate caregiver on proper wound care procedures; Document patient eligibility for HBO; Assess patient for HBO treatment; Record wound depth; Record total wound area; Measure wound progress Wound volume breakdown reduc ed by X% by week 12 Provide caregiver with wound care proced ure information; Educate caregiver on proper wound care procedures; Document patient eligibility for HBO; Assess patient for HBO treatment; Record wound depth; Record total wound area; Measure wound progress Quit using tobacco (cigarett es, smokeless, etc) Create an action plan identifying patien t strengths and supports; Establish quit date with patient; Discuss prior cessation attempts; Discuss preferred method of cessation and plan; Discuss barriers to smoking cessation; Discuss smoking status with patient Reduce tobacco use (cigarett es, smokeless, etc) Create an action plan identifying patien t strengths and supports; Establish quit date with patient; Discuss prior cessation attempts; Discuss preferred method of cessation and plan; Discuss barriers to smoking cessation; Discuss smoking status with patient Decrease Wound Volume by X% by date (in notes) Give provider list of wound care supplie s; Refill wound care supplies; Send Wound Care Supplies; Provide caregiver with wound care procedure information; Educate caregiver on proper wound care procedures; Document patient eligibility for HBO; Assess patient for HBO treatment; Record wound depth; Record total wound area; Measure wound progress Patient and Caregiver [facility] Education Provide caregiver with wound care proced ure information; Educate caregiver on proper wound care procedures; Give provider list of wound care supplies; Refill wound care supplies; Send Wound Care Supplies
== END 2024-11-29 14:51 | disposition home or self-care (01) ==
LOC: HO.HCS 14:08
PROVIDERS: PCP Family Medicine; Visit Provider Internal Medicine
DX: I95.1 Orthostatic hypotension (principal); I10 Essential (primary) hypertension; E11.9 Type 2 diabetes mellitus without complications; R00.0 Tachycardia, unspecified
CPT/HCPCS: 93010; 99204; G2211

== ENCOUNTER → 2024-11-29 14:08 | Outpatient (BNVA) | payer MEDICARE, MEDICAID, SELFPAY | PROVIDERS: PCP Family Medicine; Visit Provider Internal Medicine | DX: I95.1 Orthostatic hypotension (principal); I10 Essential (primary) hypertension; E11.9 Type 2 diabetes mellitus without complications; R00.0 Tachycardia, unspecified; R94.31 Abnormal electrocardiogram [ECG] [EKG] | CPT/HCPCS: 93005; 99202 ==

== ENCOUNTER 2025-01-22 11:04 | Outpatient (REF) | payer MEDICARE, MEDICAID, SELFPAY ==
[2025-01-22 13:56] LABS: Hematocrit 37.5 % (37.0-47.0); Hemoglobin 11.9 g/dl (12.0-16.0); Mean Corpuscular HGB Conc 31.7 g/dl (31.0-35.0); Mean Corpuscular Hemoglobin 28.3 pg (27.0-33.0); Mean Corpuscular Volume 89.1 fL (80.0-98.0); NRBC Abs Auto 0.000 X10*3/uL (0.0-0.012); NRBC Pct Auto 0.0 /100WBC (0.0-0.2); Platelet Count 206 X10*3/uL (160-400); Red Blood Count 4.21 X10*6/uL (4.20-5.50); White Blood Count 8.8 X10*3/uL (4.8-10.8)
[2025-01-22 14:36] LABS: Alanine Aminotransferase < 6 U/L (0-31); Albumin Level 4.5 g/dL (3.5-5.0); Alkaline Phosphatase 75 U/L (39-117); Anion Gap 14 (12-20); Aspartate Amino Transferase 21 U/L (5-31); Blood Urea Nitrogen 26 mg/dL (9-16); Calcium 9.5 mg/dL (8.4-10.2); Carbon Dioxide 27 mmol/L (22-29); Chloride 105 mmol/L (96-108); Cholesterol 177 mg/dL (<200); Estimated Glomerular Filt Rate 56; HDL Cholesterol 55 mg/dL (>40); Potassium 4.5 mmol/L (3.3-5.1); Sodium 141 mmol/L (135-145); Total Protein 7.7 g/dL (6.5-8.0); Triglycerides 113 mg/dL (<150)
[2025-01-22 14:37] LABS: Free T4 (Free Thyroxine) 0.92 ng/dL (0.71-1.85); Thyroid Stimulating Hormone 1.58 uIU/mL (0.32-4.0)
[2025-01-22 14:41] LABS: Microalbum/Creatinine Ratio Ur 4.2 ug/mg cr (<30)
[2025-01-23 05:44] LABS: HBS Num1 1.46 mIU/mL (0-7.99); HBsAGNum1 0.52 S/CO (0.00-0.99); HIV Num 1 0.10 S/CO (0.00-0.99); Hepatitis B Surface Antigen Negative (Negative); ~HepC Num1 0.12 S/CO (0.00-0.79); ~Hepatitis B Surface Antibody NONREACTIVE (Nonreactive); ~Hepatitis C Antibody Nonreactive (Nonreactive)
== END 2025-01-22 11:05 | disposition home or self-care (01) ==
LOC: HO.HHCL 11:04
PROVIDERS: PCP Family Medicine; Visit Provider Family Medicine
DX: Z11.59 Encounter for screening for other viral diseases (principal); Z11.3 Encounter for screening for infections with a predominantly sexual mode of transmission; E11.319 Type 2 diabetes mellitus with unspecified diabetic retinopathy without macular edema; Z68.30 Body mass index [BMI] 30.0-30.9, adult; G62.9 Polyneuropathy, unspecified; Z72.89 Other problems related to lifestyle
CPT/HCPCS: 36415; 80048; 80061; 80076; 82043; 82306; 82570; 83036; 84439; 84443; 85027; 86592; 86706; 86803; 87340; 87389